=== PATIENT | female | born 1935 | race Caucasian/White ===

== ENCOUNTER 2023-10-01 11:37 | Observation (INO) ==
--- NOTE | 2023-10-01 12:01 | Emergency Department Note ---
Impression & Plan Syncope, vasovagal, Dizziness, Hematoma of scalp, Laceration of scalp, Fall ED Provider Note HISTORY OF PRESENT ILLNESS: Patient is an 87-year-old female presenting after syncopal episode. Patient presents from [facility] where she reportedly had a bowel movement and then was feeling lightheaded like she was going to pass out and tried to get herself off the toilet when she fell and struck her head. Staff found her on the ground. She then had an episode of vomiting. Patient is not on any anticoagulation. She reportedly "passes out quite frequently." Patient denies any complaints on arrival to the ER. Denies any chest pain or shortness of breath or lightheadedness prior to the fall. Reports "I just knew I was going to pass out." Denies any changes in vision currently. Denies any numbness or tingling or weakness in her extremities. ROS: as above PHYSICAL EXAM: Constitutional: Patient appears in no acute distress. HENT: Head: Normocephalic. 2 cm laceration to right posterior parietal scalp. The laceration has 2 linear components and an underlying hematoma that is actively bleeding from the center of the hematoma. Eyes: EOMI, PERRL Mouth/Throat: Mucous membranes moist. Neck: Trachea midline. Neck supple. Cardiovascular: RRR, No murmurs, rubs or gallops. Intact distal pulses. Pulmonary/Chest: No respiratory distress. Breath sounds clear and equal bilaterally. No wheezes or rales Abdominal: Abdomen soft, no tenderness, rebound or guarding. Back: No midline spinal tenderness, no paraspinal tenderness, no CVA tenderness. Musculoskeletal: No edema, tenderness or deformity noted. Skin: Warm and dry. No rash, erythema, pallor or cyanosis Psychiatric: Appropriate mood and affect for situation. Neurological: Alert and keenly responsive. CN II-XII grossly intact, moving all extremities equally and fully. MDM: - Vitals signs showed hypertension. - History obtained via patient. Patient presents with syncopal episode. Patient reports that she was having a bowel movement when she felt lightheaded like she was going to pass out and lowered herself to the the ground but fell and struck her head. She reports vomiting since the episode. Not on any anticoagulation. Denies any chest pain or shortness of breath. She reports that she knew she was going to pass out. Denies any changes in vision. - Chronic conditions affecting care: none - Differential diagnoses include, but are not limited to: UTI; intracranial hemorrhage; skull fracture; ACS; vasovagal syncope - Order placed for continuous cardiac monitoring. At this time, monitor showed rate of 64 bpm with normal sinus rhythm, per my interpretation. - External medical records reviewed. EMS run sheet was reviewed. Patient was vitally stable and route. She was given 4 mg of IV Zofran prehospital. - EKG interpreted by myself showed normal sinus rhythm. Rate bradycardic at 53 bpm. LBBB present. No acute ischemic changes. No previous EKG to compare to - Laboratory workup interpreted by myself showed leukocytosis (WBC 11.44) with left shift; stable electrolytes; normal creatinine; normal troponin; normal lipase - COVID/flu/RSV negative - CXR negative for pneumonia, per my interpretation - CT head wo contrast negative for acute intracranial pathology - Patient persistently vomiting on arrival. She was given 4 mg of IV Zofran on arrival. However, she continues to vomit. She was given 5 mg IV Compazine and 12.5 mg IV Benadryl. Given 1 g of IV acetaminophen for her reported "pain all over." - Patient's scalp laceration was repaired by myself with a few maryjane. Please see procedure note below. She did still have some oozing of blood from the hematoma so gauze soaked in TXA was placed on the wound and a compression wrap was wrapped around the patient's head. - Patient ambulated to the bathroom but when she returned she felt very dizzy and lightheaded and family does not feel comfortable with her going back to her [facility]. - Discussion was had with care analyst about patient's case and need for admission for observation - Hospitalist consulted for admission - [facility]. PROCEDURE: Laceration repair Location: right posterior parietal scalp Total length: 2 cm Complexity: simple Verbal consent was obtained after the risks and benefits were explained, including but not limited to bleeding, scarring, infection, pain, and bone/joint/nerve damage. At this time, the risks of the procedure are less than the risks of NOT performing the procedure. A time out was taken and the correct patient and site identified. Copious irrigation was performed using normal saline and hydrogen peroxide. The wound was explored for foreign bodies and none found. Examination revealed no injury to deep structures such as tendons, bone, or significant blood vessels. Debridement was not performed. The wound edges were approximated using 4 maryjane Hemostasis and excellent approximation was achieved. Antibacterial ointment and a sterile dressing applied. Detailed wound care instructions and signs and symptoms of infection reviewed with the patient and patient's daughter. No complications and the patient tolerated the procedure well. ASSESSMENT AND PLAN: Diagnosis: vasovagal syncope; fall; scalp laceration; scalp hematoma; dizziness Plan: admit Past Med/Surg History Social History Smoking Status: Never smoker Feels Safe at Home: Yes Allergies Allergies Allergy/AdvReac Type Severity Reaction Status Date / Time ciprofloxacin Allergy Unknown Unknown Unverified 10/01/23 13:59 clindamycin Allergy Unknown Unknown Unverified 10/01/23 13:59 fentanyl Allergy Unknown Unknown Unverified 10/01/23 13:59 sulfamethoxazole Allergy Unknown Unknown Unverified 10/01/23 13:59 [From ] trimethoprim [From ] Allergy Unknown Unknown Unverified 10/01/23 13:59 Home Meds Home Medications Medication Instructions Recorded Confirmed acetaminophen 500 mg tablet 1,000 mg PO BID 10/01/23 10/01/23 amlodipine 2.5 mg tablet 2.5 mg PO DAILY 10/01/23 10/01/23 aspirin 81 mg tablet 81 mg PO DAILY 10/01/23 10/01/23 carvedilol 12.5 mg tablet 12.5 mg PO BID 10/01/23 10/01/23 clopidogrel 75 mg tablet (Plavix) 75 mg PO DAILY 10/01/23 10/01/23 esomeprazole magnesium 40 mg 40 mg PO DAILY 10/01/23 10/01/23 capsule,delayed release (Nexium) levothyroxine 50 mcg tablet 50 mcg PO DAILY 10/01/23 10/01/23 polyethylene glycol 3350 17 gram 17 g PO DAILY PRN Constipation 10/01/23 10/01/23 oral powder packet (ClearLax) sennosides 8.6 mg-docusate sodium 1 tab-cap PO DAILY 10/01/23 10/01/23 50 mg tablet (Senna-S) sertraline 25 mg tablet 0 mg PO DAILY 10/01/23 10/01/23 sertraline 50 mg tablet 0 mg PO DAILY 10/01/23 10/01/23 simvastatin 40 mg tablet 40 mg PO HS 10/01/23 10/01/23 tramadol 50 mg tablet 50 mg PO Q12H PRN Pain 10/01/23 10/01/23 Results & Data (ED) Vital Signs Vital Signs - 24 hr 10/01/23 12:04 10/01/23 12:15 10/01/23 12:15 Pulse Rate 71 65 65 Pulse Rate [Apical] Respiratory Rate 18 18 Respiratory Effort / Characteristics Non-Labored Spontaneous Respiratory Depth Normal Respiratory Pattern Regular Blood Pressure 202/82 Blood Pressure [Right Arm] Blood Pressure Mean 122 Blood Pressure Mean [Right Arm] Blood Pressure Position Lying Blood Pressure Position [Right Arm] Pulse Oximetry 100 100 Oxygen Delivery Method Room Air Room Air Sepsis Recent Fever Within 48 Hours No Sepsis New/Unexplained Change in Mental Status N/A Sepsis Action Taken by Nursing No Action Required 10/01/23 12:15 10/01/23 13:52 10/01/23 15:31 Pulse Rate Pulse Rate [Apical] 65 62 63 Respiratory Rate 18 18 18 Respiratory Effort / Characteristics Non-Labored Spontaneous Non-Labored Spontaneous Respiratory Depth Normal Normal Respiratory Pattern Regular Regular Blood Pressure Blood Pressure [Right Arm] 202/82 190/83 181/60 H Blood Pressure Mean Blood Pressure Mean [Right Arm] 122 118 100 Blood Pressure Position Blood Pressure Position [Right Arm] Lying Lying Pulse Oximetry 100 100 98 Oxygen Delivery Method Room Air Room Air Room Air Sepsis Recent Fever Within 48 Hours Sepsis New/Unexplained Change in Mental Status Sepsis Action Taken by Nursing 10/01/23 16:05 Pulse Rate 64 Pulse Rate [Apical] Respiratory Rate Respiratory Effort / Characteristics Respiratory Depth Respiratory Pattern Blood Pressure Blood Pressure [Right Arm] Blood Pressure Mean Blood Pressure Mean [Right Arm] Blood Pressure Position Blood Pressure Position [Right Arm] Pulse Oximetry Oxygen Delivery Method Sepsis Recent Fever Within 48 Hours Sepsis New/Unexplained Change in Mental Status Sepsis Action Taken by Nursing Laboratory Data 10/01/23 11:58 10/01/23 11:58 Lab Results 10/01/23 10/01/23 10/01/23 Range/Units 11:58 12:03 14:09 WBC 11.44 H (4.8-10.8) K/ul RBC 3.90 L (4.20-6.10) M/uL Hgb 10.6 L (12.0-18.0) g/dl POC Hgb 11.2 L (12.0-18.0) g/dl Hct 32.6 L (37.0-52.0) % POC Hct 33 L (37-52) % MCV 83.6 (80.0-100.0) fL MCH 27.2 (25.0-34.0) pg MCHC 32.5 (32.0-36.0) g/dL RDW Std Deviation 43.2 (36.4-46.3) fL RDW Coeff of Ally 14.2 (11.5-14.5) % Plt Count 179 (130-400) K/uL MPV 9.8 (9.4-12.4) fL Immature Gran % (Auto) 0.7 % Neut % (Auto) 75.2 % Lymph % (Auto) 11.6 % [place] % (Auto) 5.7 % Eos % (Auto) 6.4 % Baso % (Auto) 0.4 % Neut # (Auto) 8.60 H (1.40-6.50) K/uL Lymph # (Auto) 1.33 (1.20-3.40) K/uL [place] # (Auto) 0.65 H (0.11-0.59) K/uL Eos # (Auto) 0.73 H (0.00-0.50) K/uL Baso # (Auto) 0.05 (0.00-0.20) K/uL Immature Gran # (Auto) 0.08 (0.01-0.20) K/uL PT 12.0 (9.0-12.0) Seconds INR 1.1 (0.9-1.1) POC Sodium 138 (135-144) mmol/L Sodium 136 (136-145) mmol/L POC Potassium 4.5 (3.3-5.0) mmol/L Potassium 4.6 (3.5-5.1) mmol/L POC Chloride 103 (101-112) mmol/L Chloride 103 (98-107) mmol/L Carbon Dioxide 24 (21-32) mmol/L POC Total CO2 22 L (24-31) mmol/L Anion Gap 9 (3-11) POC Anion Gap 18.0 (16-25) mmol/L POC BUN 25 H (7-18) mg/dl BUN 26 H (6-23) mg/dl Creatinine 1.12 (0.6-1.4) mg/dl POC Creatinine 1.2 (0.6-1.3) mg/dl Est Cr Clr Drug Dosing Not Reportable Est GFR ( Amer) 68.1 ml/min Est GFR (Non-Af Amer) 58.7 ml/min BUN/Creatinine Ratio 23.2 H (10-20) Glucose 114 H (70-99(Fasting)) mg/dl POC Glucose (other) 113 H (70-99) mg/dl Calcium 9.5 (8.6-10.3) mg/dl POC Ioniz Calcium Dwayne 1.18 (1.12-1.32) mmol/l Magnesium 2.0 (1.7-2.4) mg/dl Total Bilirubin 0.6 (0.2-1.0) mg/dl AST 18 (13-39) U/L ALT 9 (7-52) U/L Alkaline Phosphatase 62 (34-104) U/L Troponin I High Sens 8.1 (0-20) pg/ml Total Protein 7.3 (6.0-8.3) gm/dl Albumin 4.2 (3.4-5.0) gm/dl Globulin 3.1 (2.5-4.0) gm/dl Albumin/Globulin Ratio 1.4 (0.9-2) Lipase 18 (11-82) U/L SARS-CoV-2 (PCR) NEGATIVE (Negative) Influenza Type A (PCR) Negative (Neg) Influenza Type B (PCR) Negative (Neg) RSV (RT-PCR) Negative (Neg) Administered Medications Discontinued Medications Diphenhydramine HCl (Diphenhydramine 50 Mg/Ml Vial) 12.5 mg IV ONE ONE Stop: 10/01/23 14:01 Last Admin: 10/01/23 13:58 Dose: 12.5 mg Documented By: MONIKA Prochlorperazine (Compazine) 1 mls @ 1 mls/min IV ONE ONE Stop: 10/01/23 13:36 Last Admin: 10/01/23 14:10 Dose: 1 mls/min Documented By: MONIKA Acetaminophen (Ofirmev) 1,000 mg in 100 mls @ 400 mls/hr IV NOW STA Stop: 10/01/23 14:32 Last Infusion: 10/01/23 16:23 Dose: Infused Documented By: Admin: 10/01/23 14:54 Dose: 400 mls/hr Documented By: MONIKA Lidocaine/Epinephrine (Lidocaine 1%/Epinephrine 1:100,000 20 Ml Vial) Confirm Administered Dose 1 ml .ROUTE .[facility] ONE Stop: 10/01/23 15:51 Last Admin: 10/01/23 16:00 Dose: Not Given Documented By: MARY Ondansetron HCl (Ondansetron Inj 2 Mg/Ml 2 Ml Vial) Confirm Administered Dose 4 mg .ROUTE .[facility] ONE Stop: 10/01/23 12:05 Last Admin: 10/01/23 12:47 Dose: 4 mg Documented By: CC Ondansetron HCl (Ondansetron Inj 2 Mg/Ml 2 Ml Vial) 4 mg IV NOW STA Stop: 10/01/23 12:06 Last Admin: 10/01/23 12:47 Dose: Not Given Documented By: CC Silver Nitrate/Potassium Nitrate (Silver Nitr/Potassium Nitrate Applicator) Confirm Administered Dose 1 appl .ROUTE .[facility] ONE Stop: 10/01/23 15:46 Last Admin: 10/01/23 16:00 Dose: 1 appl Documented By: MARY Silver Nitrate/Potassium Nitrate (Silver Nitr/Potassium Nitrate Applicator) Confirm Administered Dose 3 appl .ROUTE .[facility] ONE Stop: 10/01/23 15:47 Last Admin: 10/01/23 15:57 Dose: 3 appl Documented By: MARY Tranexamic Acid (Txa 10% Non-Iv Routes 100 Mg/Ml Vial) Confirm Administered Dose 1,000 mg .ROUTE .[facility] ONE Stop: 10/01/23 15:48 Last Admin: 10/01/23 15:57 Dose: 1,000 mg Documented By: MARY Imaging Data Radiologist's Impression: Chest X-Ray 10/01/23 11:59 SINGLE VIEW CHEST CLINICAL HISTORY: Syncope. FINDINGS: An AP, portable, supine chest radiograph is obtained. No prior studies are available for comparison at the time of dictation. The heart is enlarged noting atherosclerotic calcification of the thoracic aorta. The pulmonary vasculature is noncongested. Nonspecific interstitial thickening is likely chronic. There is bibasilar scarring/atelectasis. No airspace consolidation or large pleural effusion is identified. No pneumothorax is seen. The skeletal structures are osteopenic. The bony thorax is grossly intact. IMPRESSION: Cardiomegaly with no acute cardiopulmonary abnormality identified. ACT 112: Negative or not required by law. Electronically signed by: Chad Dong M.D. 10/01/2023 12:[address] 10/01/23 11:59 CT SCAN OF THE BRAIN WITHOUT IV CONTRAST CLINICAL HISTORY: Syncope. Head injury. COMPARISON STUDY: No priors. TECHNIQUE: Unenhanced axial CT scan of the brain is performed from the vertex to the skull base. A dose lowering technique was utilized adhering to the principles of ALARA. The examination is degraded by motion artifact. CT DOSE: 625.8 mGy.cm FINDINGS: Brain parenchyma: There is age-related involutional change noting minimal microangiopathic disease. There is no hemorrhage, mass effect, or evidence of acute territorial ischemia by CT criteria. Elise-white matter differentiation is preserved. No extra-axial fluid collection is seen. Ventricles, sulci, cisterns: Prominent secondary to involutional change. Intracranial vasculature: There is atherosclerotic calcification of the cavernous carotid arteries. Calvarium: The skeletal structures are osteopenic. No depressed calvarial fracture is seen. Soft tissues: There is a large right parieto-occipital scalp hematoma. Sinuses and mastoids: There is trace mucosal thickening in the left maxillary antrum. The remaining paranasal sinuses are clear. The mastoid air cells are well pneumatized. Orbits: The bony orbits are grossly intact. There are bilateral ocular lens implants. IMPRESSION: 1 There is no hemorrhage, mass effect, or evidence of acute territorial ischemia by CT criteria. 2. Right parieto-occipital scalp hematoma. ACT 112: Negative or not required by law. Electronically signed by: Chad Dong M.D. 10/01/2023 12:21 PM Discharge Plan Visit Data Chief Complaint: Fall Stated Complaint: SYNCOPE, FALL ED Provider: Gin Hodgson Discharge Problem: Syncope, vasovagal, Dizziness, Hematoma of scalp, Laceration of scalp, Fall Forms Stand Alone Forms: [employer] Prescriptions Prescriptions: No Action carvedilol 12.5 mg Tablet 12.5 mg PO BID Rx Instructions: must administer with a meal/food polyethylene glycol 3350 [ClearLax] 17 gram Powder In Packet 17 g PO DAILY PRN (Reason: Constipation) sennosides-docusate sodium [Senna-S] 8.6-50 mg Tablet 1 tab-cap PO DAILY amlodipine 2.5 mg Tablet 2.5 mg PO DAILY clopidogrel [Plavix] 75 mg Tablet 75 mg PO DAILY tramadol 50 mg Tablet 50 mg PO Q12H PRN (Reason: Pain) acetaminophen [Tylenol Ex Str Rapid Release] 500 mg Tablet 1,000 mg PO BID simvastatin 40 mg Tablet 40 mg PO HS levothyroxine 50 mcg Tablet 50 mcg PO DAILY esomeprazole magnesium [Nexium] 40 mg Capsule,Delayed Release(Dr/Ec) 40 mg PO DAILY sertraline 25 mg Tablet 0 mg PO DAILY Rx Instructions: Take 25mg w/ 50mg to equal 75mg once daily aspirin 81 mg Tablet 81 mg PO DAILY sertraline 50 mg Tablet 0 mg PO DAILY Rx Instructions: Take 25mg w/ 50mg to equal 75mg once daily Referrals Referrals: Gema Hurd [Primary Care Provider] -
[2023-10-01] MEDS ORDERED: ONDANSETRON INJ 2 MG/ML 2 ML VIAL ONE (12:04)
[2023-10-01] MEDS ORDERED: ONDANSETRON INJ 2 MG/ML 2 ML VIAL IV STA (12:05)
[2023-10-01 12:16] LABS: iSTAT Creatinine 1.2 mg/dl (0.6-1.3); iSTAT Hemoglobin 11.2 g/dl (12.0-18.0); iSTAT Ionized Calcium 1.18 mmol/l (1.12-1.32); iSTAT Potassium 4.5 mmol/L (3.3-5.0)
[2023-10-01 12:19] LABS: Basophils # (auto) 0.05 K/uL (0.00-0.20); Basophils % (auto) 0.4 %; Eosinophils # (auto) 0.73 K/uL (0.00-0.50); Eosinophils % (auto) 6.4 %; Hematocrit (blood only) 32.6 % (37.0-52.0); Hemoglobin 10.6 g/dl (12.0-18.0); Immature Granulocytes # (auto) 0.08 K/uL (0.01-0.20); Immature Granulocytes % (auto) 0.7 %; Lymphocytes # (auto) 1.33 K/uL (1.20-3.40); Lymphocytes % (auto) 11.6 %; Mean Corpuscular Hemoglobin 27.2 pg (25.0-34.0); Mean Corpuscular Hgb Conc 32.5 g/dL (32.0-36.0); Mean Corpuscular Volume 83.6 fL (80.0-100.0); Mean Platelet Volume 9.8 fL (9.4-12.4); Monocytes # (auto) 0.65 K/uL (0.11-0.59); Monocytes % (auto) 5.7 %; Neutrophils % (auto) 75.2 %; Platelet Count 179 K/uL (130-400); RDW Coefficient of Variation 14.2 % (11.5-14.5); RDW Standard Deviation 43.2 fL (36.4-46.3); White Blood Count 11.44 K/ul (4.8-10.8)
--- NOTE | 2023-10-01 12:24 | CT Scan Report ---
CT SCAN OF THE BRAIN WITHOUT IV CONTRAST CLINICAL HISTORY: Syncope. Head injury. COMPARISON STUDY: No priors. TECHNIQUE: Unenhanced axial CT scan of the brain is performed from the vertex to the skull base. A do se lowering technique was utilized adhering to the principles of ALARA. The examination is degraded b y motion artifact. CT DOSE: 625.8 mGy.cm FINDINGS: Brain parenchyma: There is age-related involutional change noting minimal microangiopathic disease. T here is no hemorrhage, mass effect, or evidence of acute territorial ischemia by CT criteria. Elise-wh ite matter differentiation is preserved. No extra-axial fluid collection is seen. Ventricles, sulci, cisterns: Prominent secondary to involutional change. Intracranial vasculature: There is atherosclerotic calcification of the cavernous carotid arteries. Calvarium: The skeletal structures are osteopenic. No depressed calvarial fracture is seen. Soft tissues: There is a large right parieto-occipital scalp hematoma. Sinuses and mastoids: There is trace mucosal thickening in the left maxillary antrum. The remaining p aranasal sinuses are clear. The mastoid air cells are well pneumatized. Orbits: The bony orbits are grossly intact. There are bilateral ocular lens implants. IMPRESSION: 1 There is no hemorrhage, mass effect, or evidence of acute territorial ischemia by CT criteria. 2. Right parieto-occipital scalp hematoma. ACT 112: Negative or not required by law. Electronically signed by: Chad Dong M.D. 10/01/2023 12:21 PM
[2023-10-01 12:33] LABS: Alanine Aminotransferase 9 U/L (7-52); Albumin Globulin Ratio 1.4 (0.9-2); Albumin Level 4.2 gm/dl (3.4-5.0); Alkaline Phosphatase 62 U/L (34-104); Anion Gap 9 (3-11); Aspartate Aminotransferase 18 U/L (13-39); BUN Creatinine Ratio 23.2 (10-20); Bilirubin,Total 0.6 mg/dl (0.2-1.0); Blood Urea Nitrogen 26 mg/dl (6-23); Calcium 9.5 mg/dl (8.6-10.3); Carbon Dioxide 24 mmol/L (21-32); Chloride 103 mmol/L (98-107); Est GFR (African American) 68.1 ml/min; Est GFR (Non-African American) 58.7 ml/min; Globulin 3.1 gm/dl (2.5-4.0); Glucose 114 mg/dl (70-99(Fasting)); Lipase 18 U/L (11-82); Potassium 4.6 mmol/L (3.5-5.1); Sodium 136 mmol/L (136-145); Total Protein 7.3 gm/dl (6.0-8.3)
[2023-10-01 12:39] LABS: Troponin I High Sensitivity 8.1 pg/ml (0-20)
--- NOTE | 2023-10-01 12:41 | XRay Report ---
SINGLE VIEW CHEST CLINICAL HISTORY: Syncope. FINDINGS: An AP, portable, supine chest radiograph is obtained. No prior studies are available for co mparison at the time of dictation. The heart is enlarged noting atherosclerotic calcification of the thoracic aorta. The pulmonary vasculature is noncongested. Nonspecific interstitial thickening is lik rk chronic. There is bibasilar scarring/atelectasis. No airspace consolidation or large pleural effu yared is identified. No pneumothorax is seen. The skeletal structures are osteopenic. The bony thorax is grossly intact. IMPRESSION: Cardiomegaly with no acute cardiopulmonary abnormality identified. ACT 112: Negative or not required by law. Electronically signed by: Chad Dong M.D. 10/01/2023 12:40 PM
[2023-10-01 12:47] LABS: INR 1.1 (0.9-1.1)
[2023-10-01] MEDS ORDERED: PROCHLORPERAZINE 1 ML IV ONE (13:35)
[2023-10-01] MEDS ORDERED: diphenhydrAMINE 50 MG/ML VIAL IV ONE (14:00)
[2023-10-01] MEDS ORDERED: ACETAMINOPHEN 1,000 MG/100 ML VIAL IV STA (14:18)
[2023-10-01 15:20] LABS: Influenza A virus by PCR Negative (Neg); Influenza B virus by PCR Negative (Neg); RSV by PCR Negative (Neg); SARS CoV2 RNA(COVID-19) Ceph NEGATIVE (Negative)
[2023-10-01] MEDS ORDERED: SILVER NITR/POTASSIUM NITRATE APPLICATOR ONE ×2 (15:45→15:46)
[2023-10-01] MEDS ORDERED: TXA 10% Non-IV Routes 100 MG/ML VIAL ONE (15:47)
[2023-10-01] MEDS ORDERED: LIDOCAINE 1%/EPINEPHRINE 1:100,000 20 ML VIAL ONE (15:50)
--- NOTE | 2023-10-01 16:28 | Electrocardiogram Report ---
Test Reason : Blood Pressure : / mmHG Vent. Rate : 053 BPM Atrial Rate : 053 BPM P-R Int : 226 ms QRS Dur : 122 ms QT Int : 484 ms P-R-T Axes : 070 -56 091 degrees QTc Int : 454 ms Sinus bradycardia with 1st degree A-V block with Premature atrial complexes Left axis deviation Left bundle branch block Abnormal ECG No previous ECGs available Confirmed by Simone Coughlin ([id number]) on 10/01/2023 4:28:36 PM Referred By: Confirmed By:Simone Coughlin
[2023-10-01 17:54] LABS: Appearance Urine Cloudy (Clear); Bacteria Urine Automated Negative (Negative); Bilirubin Urine Negative (Negative); Blood Urine Negative (Negative); Color Urine Yellow; Glucose Urine UA Negative (Negative); Ketones Urine Negative (Negative); Leukocyte Esterase Urine 2+ (Negative); Nitrite Urine Positive (Negative); RBC Urine Automated 0-4 /hpf (0-4); Specific Gravity Urine 1.014 (1.000-1.030); Urobilinogen Urine Negative (Negative); WBC Urine Automated >30 /hpf (0-5); pH Urine 7.5 (4.5-7.5)
--- NOTE | 2023-10-01 17:54 | History & Physical Report ---
Date of Service October 01, 2023 Assessment & Plan (1) Syncope: Plan: -Admit to med/tele -Currently hypertensive with systolics in the 190's but otherwise stable -Presented to the ED ED via EMS after experiencing a syncopal episode with collapse while having a bowel movement -Patient's syncopal episode is consistent with a vasovagal episode -CT of the head and chest xray were negative for acute findings other than her scalp hematoma -Did sustain a right posterior scalp laceration which was repaired in the ED -No other focal neuro symptoms or defects on exam -Currently on 2.5 mg amlodipine and 12.5 mg Carvedilol at home -Will give 1L Plasmalyte on admission as she appears dehydrated on exam -Will obtain TTE and orthostatic vitals tomorrow to see if antihypertensives need to be adjusted -Fall precautions, aspiration precautions -Will continue aspirin and plavix for DVT PPX -NPO until CT of the abd/pelvis has resulted -AM CBC, BMP, mag (2) Dizziness: Plan: -Experiencing lightheadedness and dizziness with standing since arrival -Denies sensation that the room is spinning -Likely due to orthostatic hypotension -Rest of care per syncope plan (3) Abdominal pain: Plan: -Patient has been experiencing generalized abdominal pain since arrival -Also presented with multiple episodes of nausea and vomiting -While her abdomen was soft on exam she also has hypoactive bowel sounds -Will obtain CT of the abd/pelvis with IV con for further evaluation -Will keep NPO until CT results are back -PRN tylenol for pain (4) Laceration of scalp: Plan: -Sustained a posterior right laceration of the scalp with her fall today -Continue to monitor for signs of bleeding (5) UTI (urinary tract infection): Plan: -Patient's UA is consistent with UTI -This could be contributing to her dizziness and abdominal pain -No previous hx of resistant organisms in our system -Will start ceftriaxone for now -Monitor urine cultures and tailor abx to results (6) HTN (hypertension): Plan: -Patient has been hypertensive with systolics in the 190's-low 200's since arrival -Was nauseated and vomiting on arrival and has been experiencing increased anxiety and abdominal pain as well -Did have her am dose of amlodipine and carvedilol -Will wait and let her rest prior to treating her HTN to avoid further episodes of syncope as her HTN is likely being driven by discomfort and anxiety -Will continue home amlodipine and carvedilol for now until orthostatic vitals are obtained tomorrow (7) Peripheral vascular disease: Plan: -Continue aspirin and plavix (8) Hypothyroidism: Plan: -Continue levothyroxine Plan The patient was discussed with Dr. Zuniga at the time of the exam History of Present Illness Chief Complaint: Syncopal episode Primary Care Provider: Gema Rowell is an 87 year old female resident of the assisted living section of [facility] with a PMH significant for cognitive decline, HTN, hyperlipidemia, hypothyroidism, peripheral vascular disease, recurrent syncope, and recurrent UTI's who initially presented to the [facility] ED via EMS after experiencing a syncopal episode while trying to have a bowel movement this am. She was noted to be nauseated and vomiting on arrival to the ED. She was hypertensive at 202/82 on arrival but otherwise stable. Labs were significant for a WBC of 11 with neutrophil predominance of 8.6, covid 19/Influenza/RSV negative, with UA in process. CT of the head was read as "1 There is no hemorrhage, mass effect, or evidence of acute territorial ischemia by CT criteria. 2. Right parieto-occipital scalp hematoma.". Chest xray was read as "Cardiomegaly with no acute cardiopulmonary abnormality identified.". ECG shows sinus bradycardia with first degree AV block and LBBB with no previous ECG to compare to. The patient's scalp laceration was repaired and she was given 1gm IV tylenol, 12.5 mg IV benadryl, 4 mg IV zofran, and a dose of Compazine but stated that she was too dizzy and weak after walking to the ED bathroom to safely return home. At the time of the exam the patient was sitting in bed in no acute distress with her Ispmfldb-uz-xio sitting bedside, history was obtained from both. The patient woke in her normal state of health and felt well. She ate breakfast without issue and went back to her room. She went to the bathroom as she needed to have a BM. While on the toilet, having a BM, she had an acute episode of lightheadedness and passed out. She woke on the ground and saw blood, she also had a headache. She denies other symptoms such as paresthesias, chest pain, palpitations, SOB prior to the incident. She did take her am medications shortly after breakfast. Currently her only complaints are a headache and generalized abdominal pain. she did have a formed bowel movement this am and denies recent diarrhea. She and her daughter explain that since she was 6 yrs old she will have syncopal episodes, especially with pain or discomfort. The patient states "no doctor has ever worked it up before". Her daughter states that the patient gets recurrent UTI's and often has syncopal events when they occur. The patient states she had another episode of lightheadedness/dizziness while trying to stand up off the bedside commode approximately an hour ago but did not lose consciousness. She has a living will, and power of police cadet. She and her daughter confirm that she is a DNR/DNI. Please refer to Dr. Zuniga's attestation for any changes to the treatment plan Allergies Allergy/AdvReac Type Severity Reaction Status Date / Time ciprofloxacin Allergy Unknown Unknown Unverified 10/01/23 13:59 clindamycin Allergy Unknown Unknown Unverified 10/01/23 13:59 fentanyl Allergy Unknown Unknown Unverified 10/01/23 13:59 sulfamethoxazole Allergy Unknown Unknown Unverified 10/01/23 13:59 [From Mayra] trimethoprim [From Mayra] Allergy Unknown Unknown Unverified 10/01/23 13:59 Home Medications Medication Instructions Recorded Confirmed Type acetaminophen 500 mg tablet 1,000 mg PO BID 10/01/23 10/01/23 History aspirin 81 mg tablet 81 mg PO DAILY 10/01/23 10/01/23 History clopidogrel 75 mg tablet (Plavix) 75 mg PO DAILY 10/01/23 10/01/23 History esomeprazole magnesium 40 mg 40 mg PO DAILY 10/01/23 10/01/23 History capsule,delayed release (Nexium) levothyroxine 50 mcg tablet 50 mcg PO DAILY 10/01/23 10/01/23 History polyethylene glycol 3350 17 gram 17 g PO DAILY PRN Constipation 10/01/23 10/01/23 History oral powder packet (ClearLax) sennosides 8.6 mg-docusate sodium 1 tab-cap PO DAILY 10/01/23 10/01/23 History 50 mg tablet (Senna-S) sertraline 25 mg tablet 0 mg PO DAILY 10/01/23 10/01/23 History sertraline 50 mg tablet 0 mg PO DAILY 10/01/23 10/01/23 History simvastatin 40 mg tablet 40 mg PO HS 10/01/23 10/01/23 History tramadol 50 mg tablet 50 mg PO Q12H PRN Pain 10/01/23 10/01/23 History amlodipine 2.5 mg tablet 2.5 mg PO PM #30 tabs 10/07/23 10/01/23 Rx carvedilol 12.5 mg tablet 12.5 mg PO DAILY #9 tabs 10/07/23 10/01/23 Rx lisinopril 2.5 mg tablet 2.5 mg PO PM #30 tabs 10/07/23 Rx Past Med/Surg History Social History Smoking Status: Former smoker Hx Alcohol Use: No Hx Substance Use: No Preferred Language: Namibian Communication Ability: Effective Director Of Math Required: No Beliefs That Will Affect Care: None Current Living Situation: Half-Way Feels Safe at Home: Yes Assistive Devices: Cane Physical Exam Physical Exam: Physical Exam: General: In no acute distress, stated age, noo-toxic appearing HEENT: Patient with posterior scalp laceration currently wrapped and without signs of active bleeding, no scleral icterus, pupils around round, symmetrical, and reactive to light, moist mucus membranes, trachea midline, no thyromegaly Chest/Pulm: No respiratory distress, symmetrical chest expansion, clear breath sounds throughout Cardiac: RRR, 3/6 systolic murmur noted Abdomen: Negative for ascites and bruising, hypoactive bowel sounds, soft, mildly tender to palpation throughout Musculoskeletal: No other acute trauma other than her scalp laceration Extremities: Radial, dorsalis pedis, and posterior tibial pulses are intact and symmetrical, 1+ edema noted in the BL LE's Skin: Scalp laceration as described above, no other acute damage noted Neuro: Alert and oriented to person, place, month, year, and president, no focal defects, CN II-XII tested and intact, no tremors noted Psych: No acute distress, calm and cooperative during the exam Results & Data Results & Data Vital Signs (Past 12 Hours) Vital Signs Pulse Pulse Resp BP BP Pulse Ox O2 Del Method 10/01/23 16:05 64 10/01/23 15:31 63 18 181/60 H 98 Room Air 10/01/23 13:52 62 18 190/83 100 Room Air 10/01/23 12:15 65 18 100 Room Air 10/01/23 12:15 65 18 100 Room Air 10/01/23 12:15 65 18 100 Room Air 10/01/23 12:04 71 Laboratory Results Abnormal lab results 10/01/23 10/01/23 10/01/23 Range/Units 11:58 12:03 17:28 WBC 11.44 H (4.8-10.8) K/ul RBC 3.90 L (4.20-6.10) M/uL Hgb 10.6 L (12.0-18.0) g/dl POC Hgb 11.2 L (12.0-18.0) g/dl Hct 32.6 L (37.0-52.0) % POC Hct 33 L (37-52) % Neut # (Auto) 8.60 H (1.40-6.50) K/uL [place] # (Auto) 0.65 H (0.11-0.59) K/uL Eos # (Auto) 0.73 H (0.00-0.50) K/uL POC Total CO2 22 L (24-31) mmol/L POC BUN 25 H (7-18) mg/dl BUN 26 H (6-23) mg/dl BUN/Creatinine Ratio 23.2 H (10-20) Glucose 114 H (70-99(Fasting)) mg/dl POC Glucose (other) 113 H (70-99) mg/dl Urine Appearance Cloudy A (Clear) Urine Protein Trace H (Negative) Urine Nitrite Positive A (Negative) Ur Leukocyte Esterase 2+ H (Negative) Urine WBC (Auto) >30 H (0-5) /hpf U Epithel Cells (Auto) 10-20 H (0-5) /lpf Diagnostic Findings Chest X-Ray 10/01/23 11:59 SINGLE VIEW CHEST CLINICAL HISTORY: Syncope. FINDINGS: An AP, portable, supine chest radiograph is obtained. No prior studies are available for comparison at the time of dictation. The heart is enlarged noting atherosclerotic calcification of the thoracic aorta. The pulmonary vasculature is noncongested. Nonspecific interstitial thickening is likely chronic. There is bibasilar scarring/atelectasis. No airspace consolidation or large pleural effusion is identified. No pneumothorax is seen. The skeletal structures are osteopenic. The bony thorax is grossly intact. IMPRESSION: Cardiomegaly with no acute cardiopulmonary abnormality identified. ACT 112: Negative or not required by law. Electronically signed by: Chad Dong M.D. 10/01/2023 12:[address] 10/01/23 11:59 CT SCAN OF THE BRAIN WITHOUT IV CONTRAST CLINICAL HISTORY: Syncope. Head injury. COMPARISON STUDY: No priors. TECHNIQUE: Unenhanced axial CT scan of the brain is performed from the vertex to the skull base. A dose lowering technique was utilized adhering to the principles of ALARA. The examination is degraded by motion artifact. CT DOSE: 625.8 mGy.cm FINDINGS: Brain parenchyma: There is age-related involutional change noting minimal microangiopathic disease. There is no hemorrhage, mass effect, or evidence of acute territorial ischemia by CT criteria. Elise-white matter differentiation is preserved. No extra-axial fluid collection is seen. Ventricles, sulci, cisterns: Prominent secondary to involutional change. Intracranial vasculature: There is atherosclerotic calcification of the cavernous carotid arteries. Calvarium: The skeletal structures are osteopenic. No depressed calvarial fracture is seen. Soft tissues: There is a large right parieto-occipital scalp hematoma. Sinuses and mastoids: There is trace mucosal thickening in the left maxillary antrum. The remaining paranasal sinuses are clear. The mastoid air cells are well pneumatized. Orbits: The bony orbits are grossly intact. There are bilateral ocular lens implants. IMPRESSION: 1 There is no hemorrhage, mass effect, or evidence of acute territorial ischemia by CT criteria. 2. Right parieto-occipital scalp hematoma. ACT 112: Negative or not required by law. Electronically signed by: Chad Dong M.D. 10/01/2023 12:21 PM ECG Additional Comments: Sinus bradycardia with 1st degree A-V block with Premature atrial complexes Left axis deviation Left bundle branch block Abnormal ECG No previous ECGs available Confirmed by Simone Coughlin ([id number]) on 10/01/2023 4:28:36 PM Code Status & VTE Plan Code Status DNR/DNI VTE Prophylaxis Plan VTE Prophylaxis will be ordered: Yes Supervising Physician Co-Signing Physician Notes I personally saw and examined the patient. I verified all plata points and agree with Otilio Dueñas PA-C with the following exceptions and/or additions: 87 year old female presents to the ER with a syncopal event while n the toilet having a bowel movement. Complete loss of consciousness. No one sided weakness, change in speech/vision/hearing. Multiple episodes of syncope and recurrent UTIs. [place] well prior to this. O/E HS RRR, ADAL LUSB, Chest CTAB, Abdo mild tenderness throughout, no CVA tenderness A/P Syncope - TTE, rehydrate with IV fluids, monitor orthostatics in AM Enteritis - Monitor for diarrhea. PG Care Time/CCT Total # of Minutes Spent Total Time Spent with Patient: Total time spent is greater than 50% in coordination of care (as documented) at patient's floor/unit and/or counseling patient: [place] [address] INT INP/OBS CARE 3/75MIN Patient Type New Medical Decision Making High Complexity Diagnoses Syncope R55 Dizziness R42 Abdominal pain R10.9 Laceration of scalp S01.01XA UTI (urinary tract infection) N39.0 HTN (hypertension) I10 Peripheral vascular disease I73.9 Hypothyroidism E03.9
[2023-10-01 18:00] LABS: Protein Urine Trace (Negative)
[2023-10-01] MEDS ORDERED: cefTRIAXone SODIUM 2,000 MG in DEXTROSE 5 % MINI-B 50 ML IV STA (18:27)
[2023-10-01] MEDS ORDERED: PLASMA-LYTE A 1,000 ML IV ONE (18:27)
[2023-10-01] MEDS ORDERED: ACETAMINOPHEN 325 MG TAB PO STA (18:28)
[2023-10-01] MEDS ORDERED: OPTIRAY 320 500ml IV ONE (19:14)
--- NOTE | 2023-10-01 19:45 | CT Scan Report ---
Exam(s): CT ABDOMEN + PELVIS With Contrast IV Amt: 82ml EXAM: CT Abdomen and Pelvis With Intravenous Contrast CLINICAL HISTORY: Reason for exam: nausea, vomiting, abd pain. TECHNIQUE: Axial computed tomography images of the abdomen and pelvis with intravenous contrast. CTDI is 20.17 mGy and DLP is 842.98 mGy-cm. Automated exposure control was utilized for the study. A dose lowering technique was utilized adhering to the principles of ALARA. CONTRAST: Patient received 82ml of IV contrast COMPARISON: None FINDINGS: Lung bases: Lower lung atelectasis. ABDOMEN: Liver: Unremarkable. No mass. Gallbladder and bile ducts: Prior cholecystectomy. Probable mild postcholecystectomy ductal ectasia. Pancreas: Unremarkable. No mass. No ductal dilation. Spleen: Unremarkable. No splenomegaly. Adrenals: Unremarkable. No mass. Kidneys and ureters: Small hypodensities in the kidneys are too small to definitively characterize. Mild fullness of the renal pelvises. No obstructing stone identified. Stomach and bowel: Fluid and gas-filled small bowel loops could represent enteritis in the appropriate clinical setting. Evaluation of the stomach is limited by underdistention. Postsurgical change of the distal sigmoid colon. Diverticulosis without evidence of diverticulitis. No small bowel obstruction. PELVIS: Appendix: Appendix is not definitely visualized on this exam. Bladder: Unremarkable. No mass. Reproductive: Calcified uterine fibroid. ABDOMEN and PELVIS: Intraperitoneal space: Unremarkable. No free air. No significant fluid collection. Bones/joints: Degenerative changes of the spine. Grade 1/2 anterolisthesis of L4 on L5. Grade 1 anterolisthesis of L5 on S1. No acute fracture. No dislocation. Soft tissues: Moderate fat-containing lower left ventral hernia. Small fat-containing umbilical hernia. Vasculature: Atherosclerotic changes of the vasculature. No aortic aneurysm or dissection. 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 Stent in the left common iliac artery. Lymph nodes: Unremarkable. No enlarged lymph nodes. IMPRESSION: 1. Fluid and gas-filled small bowel loops could represent enteritis in the appropriate clinical setting. 2. Moderate fat-containing lower left ventral hernia. Electronically signed by: Jose Elias Dooley M.D. 10/01/23 19:45 PM
[2023-10-01] MEDS ORDERED: hydrALAZINE HCL 20 MG/ML VIAL IV STA ×2 (21:29→21:33)
[2023-10-01] MEDS ORDERED: ACETAMINOPHEN 1,000 MG/100 ML VIAL IV SCH (21:45)
[2023-10-01] MEDS: carvediloL 12.5 MG TAB PO SCH (22:09)
[2023-10-01] MEDS: PANTOprazole 40 MG in SYRINGE 0 ML IV SCH (22:09)
[2023-10-01] MEDS: ONDANSETRON INJ 2 MG/ML 2 ML VIAL IV PRN (22:11)
[2023-10-01] MEDS: PLASMA-LYTE A 1,000 ML IV SCH (22:27)
[2023-10-02 06:42] LABS: Basophils # (auto) 0.03 K/uL (0.00-0.20); Basophils % (auto) 0.4 %; Eosinophils # (auto) 0.12 K/uL (0.00-0.50); Eosinophils % (auto) 1.8 %; Hematocrit (blood only) 25.3 % (37.0-47.0); Immature Granulocytes # (auto) 0.03 K/uL (0.01-0.20); Immature Granulocytes % (auto) 0.4 %; Lymphocytes # (auto) 1.25 K/uL (1.20-3.40); Lymphocytes % (auto) 18.5 %; Mean Corpuscular Hemoglobin 26.9 pg (25.0-34.0); Mean Corpuscular Hgb Conc 31.6 g/dL (32.0-36.0); Mean Corpuscular Volume 85.2 fL (80.0-100.0); Mean Platelet Volume 9.8 fL (9.4-12.4); Monocytes # (auto) 0.72 K/uL (0.11-0.59); Monocytes % (auto) 10.7 %; Neutrophils # (auto) 4.61 K/uL (1.40-6.50); Neutrophils % (auto) 68.2 %; Platelet Count 157 K/uL (130-400); RDW Coefficient of Variation 14.3 % (11.5-14.5); RDW Standard Deviation 43.9 fL (36.4-46.3); Red Blood Count 2.97 M/uL (4.20-5.40); White Blood Count 6.76 K/ul (4.8-10.8)
[2023-10-02 07:28] LABS: Calcium 8.2 mg/dl (8.6-10.3); Magnesium 1.9 mg/dl (1.7-2.4); Potassium 3.8 mmol/L (3.5-5.1)
[2023-10-02 07:34] LABS: BUN Creatinine Ratio 20.8 (10-20); Creatinine Clr Calc Pharmacy 31.3 ml/min
[2023-10-02] MEDS: carvediloL 12.5 MG TAB PO SCH ×2 (08:49→21:35)
[2023-10-02] MEDS: PLASMA-LYTE A 1,000 ML IV SCH (08:49)
[2023-10-02] MEDS: PANTOprazole 40 MG in SYRINGE 0 ML IV SCH (08:49)
[2023-10-02] MEDS ORDERED: ACETAMINOPHEN 1,000 MG/100 ML VIAL IV SCH (09:00)
--- NOTE | 2023-10-02 12:15 | XCELERA ---
[id number] \\[id number]
[2023-10-02] MEDS ORDERED: cefTRIAXone SODIUM 2,000 MG in DEXTROSE 5 % MINI-B 50 ML IV SCH (18:00)
--- NOTE | 2023-10-02 18:50 | Hospitalist Progress Note ---
Date of Service October 02, 2023 Assessment & Plan (1) Syncope: Plan: - Telemetry and echo overall reassuring story fits the best with vasovagal syncope given that happened on the [facility] review of her diet history, she might drink adequate amount of fluid, but it is also suspect whether or not she truly doesand dehydration may be playing a role. Compounding all of this, is obviously side effect of her antihypertensives. That said, it does not appear that further workup for her syncope is necessary as much as it would be encouraging/tracking hydration, and possibly if that alone does not seem to remedy her situation, then possibly reducing her antihypertensives and allowing for more permissive hypertension to build a bit of a buffer against syncopal events given that she sounds quite prone to fainting and vagal spells throughout her life. In regards to her cloudy urinegiven her lack of fever, lack of overt urinary signs or symptoms, and normal inflammatory markers/white count, (was 11, CRP less than 0.5), I am more suspicious she simply is asymptomatic bacteriuriagiven that without any real septic signs or symptoms that would be a little hard to put together a vasovagal event while having a bowel movement with a UTI, and I worry given the prevalence of asymptomatic bacteriuria that we could set a bad precedent that could lead her down the road to ESBL infections, C. difficile infections, etc. The daughter was hesitant about this, but agreed with an aggressive watchful waiting approachwill follow for any development of urinary symptoms, obviously will treat immediately if she has any/has a fever, will trend her white count and CRP. (2) Dizziness: Plan: - This spinning dizziness seems to be quite different from her lightheaded dizziness that preceded the fall, she can clearly express that. I suspect she has a concussion and some postconcussive symptoms. Continue to follow. Given her age and frailty, I did order a repeat CT to ensure no late findings consistent with a bleed. PT/OT eval and treat, likely will need to go to skilled after discharge for the time being (3) Abdominal pain: Plan: -Patient had been experiencing generalized abdominal pain since arrival no complaints of this today -Also presented with multiple episodes of nausea and vomiting CT was consistent with enteritisit is quite possible she had a viral gastroenteritis as part of her symptom complex as well (4) Laceration of scalp: Plan: -Sustained a posterior right laceration of the scalp with her fall approximated with maryjane, seems to be healing well. While I suspect most of her anemia is dillutional, the daughter does note that it was bleeding fairly heavily, and it is hard to definitively rule out any acute blood loss. Obviously continue to follow. (5) UTI (urinary tract infection): Plan: See above discussion under syncopegiven lack of symptoms or lack of infectious signs or symptoms, will hold further antibiotics, follow for any development of symptoms, follow white count and CRP. (6) HTN (hypertension): Plan: No overt need to treat her blood pressures in the current range, (and less follow-up CT surprises me with any findings of a late bleed), as above under syncope, may need to allow more permissive hypertension depending on her hydration status/ability to function/etc. (7) Peripheral vascular disease: Plan: -Continue aspirin and plavix for now, pending follow-up CT (8) Hypothyroidism: Plan: -Continue levothyroxine Plan pending follow-up CT scan, holding pharmacologic DVT prophylaxisassuming no signs of bleed, would initiate Lovenox tomorrow. As far as dispositionPT/OT eval and treat, as above noted I suspect she will need skilled for the time being. Admission and Anticipated Discharge Date Admission Date: October 01, 2023 Subjective Complains of headache and dizziness. Fairly limited HPI due to easy confusiondaughter notes this is not too far from her normal degree of forgetfulness. That said, she denies any dysuria. Her daughter notes that her urine was cloudy, and relates that she has had UTIs with prior episodes of syncope as well. Review of Systems Review of Systems: All systems reviewed & are unremarkable except as noted in HPI & below Physical Exam Physical Exam: Awake and alert, appears a little bit uncomfortable due to dizziness, but no respiratory distress and does not appear to be in a significant amount of pain distress. She has a fairly large scalp laceration that is approximated with maryjane and clot, it appears to have been oozing earlier, but appears to be stopping now, there is no opening or dehiscence at this time. She shows no f ocal neurodeficits or lateralizing signs, breathing unlabored no accessory muscle use with good effort. Skin without rashes pallor or icterus. Results & Data Results & Data Vital Signs (Past 12 Hours) Vital Signs Temp Pulse Pulse Resp BP Pulse Ox O2 Del Method 10/02/23 17:33 67 10/02/23 15:37 98.6 F 63 18 159/67 H 97 Room Air 10/02/23 12:01 97.9 F 63 16 160/65 H 97 Room Air 10/02/23 08:00 73 10/02/23 07:41 97.9 F 72 16 163/62 H 95 Room Air PG Care Time/CCT Total # of Minutes Spent Total Time Spent with Patient: Total time spent is greater than 50% in coordination of care (as documented) at patient's floor/unit and/or counseling patient: Coding Level of Care Code 89868 SUB INP/OBS CARE 3/50MIN Diagnoses Syncope R55 Dizziness R42 Abdominal pain R10.9 Laceration of scalp S01.01XA UTI (urinary tract infection) N39.0 HTN (hypertension) I10 Peripheral vascular disease I73.9 Hypothyroidism E03.9
[2023-10-02] MEDS: ONDANSETRON INJ 2 MG/ML 2 ML VIAL IV PRN (23:02)
--- NOTE | 2023-10-02 23:28 | CT Scan Report ---
CT SCAN OF THE BRAIN WITHOUT IV CONTRAST CLINICAL HISTORY: Concussion. Dizziness. COMPARISON STUDY: CT of the brain dated 10/01/2023. TECHNIQUE: Unenhanced axial CT scan of the brain is performed from the vertex to the skull base. A do se lowering technique was utilized adhering to the principles of ALARA. The examination is degraded b y motion artifact. CT DOSE: 625.8 mGy.cm FINDINGS: Brain parenchyma: There is age-related involutional change noting minimal microangiopathic disease. T here is no hemorrhage, mass effect, or evidence of acute territorial ischemia by CT criteria. Elise-wh ite matter differentiation is preserved. No extra-axial fluid collection is seen. Ventricles, sulci, cisterns: Prominent secondary to involutional change. Intracranial vasculature: There is atherosclerotic calcification of the cavernous carotid arteries. Calvarium: The skeletal structures are osteopenic. No depressed calvarial fracture is seen. Soft tissues: There is a right parieto-occipital scalp hematoma with skin clips in place. Sinuses and mastoids: There is trace mucosal thickening in the left maxillary antrum. The remaining v isualized paranasal sinuses are clear. The mastoid air cells are well pneumatized. Orbits: The bony orbits are grossly intact. There are bilateral ocular lens implants. IMPRESSION: 1 There is no hemorrhage, mass effect, or evidence of acute territorial ischemia by CT criteria. 2. A right parieto-occipital scalp hematoma is again noted. ACT 112: Negative or not required by law. Electronically signed by: Chad Dong M.D. 10/02/2023 11:26 PM
[2023-10-03 06:36] LABS: Basophils # (auto) 0.03 K/uL (0.00-0.20); Basophils % (auto) 0.5 %; Eosinophils # (auto) 0.17 K/uL (0.00-0.50); Hematocrit (blood only) 25.6 % (37.0-47.0); Immature Granulocytes # (auto) 0.03 K/uL (0.01-0.20); Immature Granulocytes % (auto) 0.5 %; Lymphocytes # (auto) 1.08 K/uL (1.20-3.40); Lymphocytes % (auto) 19.3 %; Mean Corpuscular Hemoglobin 26.4 pg (25.0-34.0); Mean Corpuscular Hgb Conc 31.3 g/dL (32.0-36.0); Mean Corpuscular Volume 84.5 fL (80.0-100.0); Mean Platelet Volume 9.7 fL (9.4-12.4); Monocytes # (auto) 0.61 K/uL (0.11-0.59); Monocytes % (auto) 10.9 %; Neutrophils # (auto) 3.67 K/uL (1.40-6.50); Neutrophils % (auto) 65.8 %; Platelet Count 146 K/uL (130-400); RDW Coefficient of Variation 14.1 % (11.5-14.5); RDW Standard Deviation 43.4 fL (36.4-46.3); Red Blood Count 3.03 M/uL (4.20-5.40); White Blood Count 5.59 K/ul (4.8-10.8)
[2023-10-03 06:53] LABS: Anion Gap 7 (3-11); BUN Creatinine Ratio 15.5 (10-20); Blood Urea Nitrogen 16 mg/dl (6-23); C Reactive Protein < 0.50 mg/dl (0-0.5); Calcium 8.3 mg/dl (8.6-10.3); Carbon Dioxide 25 mmol/L (21-32); Chloride 104 mmol/L (98-107); Creatinine Clr Calc Pharmacy 30.5 ml/min; Est GFR (African American) 56.6 ml/min; Est GFR (Non-African American) 48.8 ml/min; Glucose 100 mg/dl (70-99(Fasting)); Potassium 3.5 mmol/L (3.5-5.1); Sodium 136 mmol/L (136-145)
[2023-10-03] MEDS: PANTOprazole 40 MG in SYRINGE 0 ML IV SCH (08:40)
[2023-10-03] MEDS: carvediloL 12.5 MG TAB PO SCH ×2 (08:40→22:10)
--- NOTE | 2023-10-03 15:59 | Hospitalist Progress Note ---
Date of Service October 03, 2023 Assessment & Plan (1) Syncope: Plan: - Telemetry and echo overall reassuring story fits the best with vasovagal syncope given that happened on the [facility] review of her diet history, she might drink adequate amount of fluid, but it is also suspect whether or not she truly doesand dehydration may be playing a role. Compounding all of this, is obviously side effect of her antihypertensives. That said, it does not appear that further workup for her syncope is necessary as much as it would be encouraging/tracking hydration, and possibly if that alone does not seem to remedy her situation, then possibly reducing her antihypertensives and allowing for more permissive hypertension to build a bit of a buffer against syncopal events given that she sounds quite prone to fainting and vagal spells throughout her life. In regards to her cloudy urinegiven her lack of fever, lack of overt urinary signs or symptoms, and normal inflammatory markers/white count, (was 11, CRP less than 0.5), I am more suspicious she simply is asymptomatic bacteriuriagiven that without any real septic signs or symptoms that would be a little hard to put together a vasovagal event while having a bowel movement with a UTI, and I worry given the prevalence of asymptomatic bacteriuria that we could set a bad precedent that could lead her down the road to ESBL infections, C. difficile infections, etc. The daughter was hesitant about this, but agreed with an aggressive watchful waiting approachwill follow for any development of urinary symptoms, obviously will treat immediately if she has any/has a fever, will trend her white count and CRP. WIll recheck inflammatory markers on 10/04 (2) Dizziness: Plan: - This spinning dizziness seems to be quite different from her lightheaded dizziness that preceded the fall, she can clearly express that. I suspect she has a concussion and some postconcussive symptoms. Continue to follow. Given her age and frailty, I did order a repeat CT to ensure no late findings consistent with a bleed. PT/OT eval and treat, likely will need to go to skilled after discharge for the time being (3) Abdominal pain: Plan: -Patient had been experiencing generalized abdominal pain since arrival no complaints of this today -Also presented with multiple episodes of nausea and vomiting CT was consistent with enteritisit is quite possible she had a viral gastroenteritis as part of her symptom complex as well (4) Laceration of scalp: Plan: -Sustained a posterior right laceration of the scalp with her fall approximated with maryjane, seems to be healing well. While I suspect most of her anemia is dillutional, the daughter does note that it was bleeding fairly heavily, and it is hard to definitively rule out any acute blood loss. Obviously continue to follow. (5) UTI (urinary tract infection): Plan: See above discussion under syncopegiven lack of symptoms or lack of infectious signs or symptoms, will hold further antibiotics, follow for any development of symptoms, follow white count and CRP. (6) HTN (hypertension): Plan: No overt need to treat her blood pressures in the current range, (and less follow-up CT surprises me with any findings of a late bleed), as above under syncope, may need to allow more permissive hypertension depending on her hydration status/ability to function/etc. (7) Peripheral vascular disease: Plan: -Continue aspirin and plavix for now, pending follow-up CT (8) Hypothyroidism: Plan: -Continue levothyroxine Plan pending follow-up CT scan, holding pharmacologic DVT prophylaxisassuming no signs of bleed, would initiate Lovenox tomorrow. As far as dispositionPT/OT eval and treat, as above noted I suspect she will need skilled for the time being. Admission and Anticipated Discharge Date Admission Date: October 01, 2023 Subjective Patient appears less confused today. Review of Systems Review of Systems: All systems reviewed & are unremarkable except as noted in HPI & below Physical Exam Physical Exam: Awake and alert, She has a fairly large scalp laceration that is approximated with maryjane there is no opening or dehiscence at this time. She shows no focal neurodeficits or lateralizing signs, breathing unlabored no accessory muscle use with good effort. Skin without rashes pallor or icterus. Results & Data Results & Data Vital Signs (Past 12 Hours) Vital Signs Temp Pulse Pulse Resp BP BP Pulse Ox 10/03/23 15:39 36.5 C 70 18 209/43 H 198/66 H 99 10/03/23 11:58 36.6 C 62 16 184/67 H 97 10/03/23 08:01 36.6 C 16 189/63 H 96 10/03/23 07:00 75 O2 Del Method 10/03/23 15:39 Room Air 10/03/23 11:58 Room Air 10/03/23 08:01 Room Air 10/03/23 07:00 PG Care Time/CCT Total # of Minutes Spent Total Time Spent with Patient: Total time spent is greater than 50% in coordination of care (as documented) at patient's floor/unit and/or counseling patient: Coding Level of Care Code 15834 SUB INP/OBS CARE 2/35MIN Diagnoses Syncope R55 Dizziness R42 Abdominal pain R10.9 Laceration of scalp S01.01XA UTI (urinary tract infection) N39.0 HTN (hypertension) I10 Peripheral vascular disease I73.9 Hypothyroidism E03.9
[2023-10-03] MEDS ORDERED: amLODIPine BESYLATE 5 MG TAB PO ONE (16:00)
[2023-10-03] MEDS: lisinopril 2.5 MG TAB PO SCH (22:11)
[2023-10-04 07:01] LABS: Basophils # (auto) 0.06 K/uL (0.00-0.20); Eosinophils # (auto) 0.23 K/uL (0.00-0.50); Eosinophils % (auto) 3.8 %; Hematocrit (blood only) 26.5 % (37.0-47.0); Hemoglobin 8.6 g/dl (12.0-16.0); Immature Granulocytes # (auto) 0.04 K/uL (0.01-0.20); Immature Granulocytes % (auto) 0.7 %; Lymphocytes # (auto) 1.24 K/uL (1.20-3.40); Lymphocytes % (auto) 20.6 %; Mean Corpuscular Hgb Conc 32.5 g/dL (32.0-36.0); Mean Corpuscular Volume 83.3 fL (80.0-100.0); Mean Platelet Volume 9.6 fL (9.4-12.4); Monocytes # (auto) 0.74 K/uL (0.11-0.59); Monocytes % (auto) 12.3 %; Neutrophils # (auto) 3.71 K/uL (1.40-6.50); Neutrophils % (auto) 61.6 %; Platelet Count 152 K/uL (130-400); RDW Coefficient of Variation 14.2 % (11.5-14.5); RDW Standard Deviation 43.4 fL (36.4-46.3); Red Blood Count 3.18 M/uL (4.20-5.40); White Blood Count 6.02 K/ul (4.8-10.8)
[2023-10-04 07:17] LABS: Anion Gap 6 (3-11); BUN Creatinine Ratio 13.7 (10-20); Blood Urea Nitrogen 14 mg/dl (6-23); C Reactive Protein < 0.50 mg/dl (0-0.5); Calcium 8.6 mg/dl (8.6-10.3); Carbon Dioxide 27 mmol/L (21-32); Chloride 105 mmol/L (98-107); Creatinine Clr Calc Pharmacy 30.5 ml/min; Est GFR (African American) 57.3 ml/min; Est GFR (Non-African American) 49.4 ml/min; Glucose 101 mg/dl (70-99(Fasting)); Potassium 3.3 mmol/L (3.5-5.1); Sodium 138 mmol/L (136-145)
[2023-10-04] MEDS: carvediloL 12.5 MG TAB PO SCH ×2 (08:43→20:40)
[2023-10-04] MEDS: PANTOprazole 40 MG in SYRINGE 0 ML IV SCH (12:09)
[2023-10-04] MEDS: ENOXAPARIN INJ 40 MG/0.4 ML SYR SQ SCH (12:09)
[2023-10-04] MEDS: lisinopril 2.5 MG TAB PO SCH (20:40)
[2023-10-04] MEDS: amLODIPine BESYLATE 5 MG TAB PO SCH (21:07)
--- NOTE | 2023-10-04 22:05 | Hospitalist Progress Note ---
Date of Service October 04, 2023 Assessment & Plan (1) Syncope: Plan: - Telemetry and echo overall reassuring story fits the best with vasovagal syncope given that happened on the [facility] [address] review of her diet history, she might drink adequate amount of fluid, but it is also suspect whether or not she truly doesand dehydration may be playing a role. Compounding all of this, is obviously side effect of her antihypertensives. That said, it does not appear that further workup for her syncope is necessary as much as it would be encouraging/tracking hydration, and possibly if that alone does not seem to remedy her situation, then possibly reducing her antihypertensives and allowing for more permissive hypertension to build a bit of a buffer against syncopal events given that she sounds quite prone to fainting and vagal spells throughout her life. In regards to her cloudy urinegiven her lack of fever, lack of overt urinary signs or symptoms, and normal inflammatory markers/white count, (was 11, CRP less than 0.5), I am more suspicious she simply is asymptomatic bacteriuriagiven that without any real septic signs or symptoms that would be a little hard to put together a vasovagal event while having a bowel movement with a UTI, and I worry given the prevalence of asymptomatic bacteriuria that we could set a bad precedent that could lead her down the road to ESBL infections, C. difficile infections, etc. The daughter was hesitant about this, but agreed with an aggressive watchful waiting approachwill follow for any development of urinary symptoms, obviously will treat immediately if she has any/has a fever, will trend her white count and CRP. negative inflammatory markers on 10/04 (2) Dizziness: Plan: - This spinning dizziness seems to be quite different from her lightheaded dizziness that preceded the fall, she can clearly express that. I suspect she has a concussion and some postconcussive symptoms. Continue to follow. Given her age and frailty, I did order a repeat CT to ensure no late findings consistent with a bleed. PT/OT eval and treat, likely will need to go to skilled after discharge for the time being (3) Abdominal pain: Plan: -Patient had been experiencing generalized abdominal pain since arrival no complaints of this today -Also presented with multiple episodes of nausea and vomiting CT was consistent with enteritisit is quite possible she had a viral gastroenteritis as part of her symptom complex as well (4) Laceration of scalp: Plan: -Sustained a posterior right laceration of the scalp with her fall approximated with maryjane, seems to be healing well. While I suspect most of her anemia is dillutional, the daughter does note that it was bleeding fairly heavily, and it is hard to definitively rule out any acute blood loss. Obviously continue to follow. (5) UTI (urinary tract infection): Plan: See above discussion under syncopegiven lack of symptoms or lack of infectious signs or symptoms, will hold further antibiotics, follow for any development of symptoms, follow white count and CRP. (6) HTN (hypertension): Plan: No overt need to treat her blood pressures in the current range, (and less follow-up CT surprises me with any findings of a late bleed), as above under syncope, may need to allow more permissive hypertension depending on her hydration status/ability to function/etc. (7) Peripheral vascular disease: Plan: -Continue aspirin and plavix for now, pending follow-up CT (8) Hypothyroidism: Plan: -Continue levothyroxine Plan pending follow-up CT scan, holding pharmacologic DVT prophylaxisassuming no signs of bleed, would initiate Lovenox tomorrow. As far as dispositionPT/OT eval and treat, as above noted I suspect she will need skilled for the time being. Admission and Anticipated Discharge Date Admission Date: October 01, 2023 Subjective Patient reports no new symptoms Review of Systems Review of Systems: All systems reviewed & are unremarkable except as noted in HPI & below Physical Exam Physical Exam: Awake and alert, She has a fairly large scalp laceration that is approximated with maryjane there is no opening or dehiscence at this time. She shows no focal neurodeficits or lateralizing signs, breathing unlabored no accessory muscle use with good effort. Skin without rashes pallor or icterus. Results & Data Results & Data Vital Signs (Past 12 Hours) Vital Signs Temp Pulse Pulse Resp BP Pulse Ox O2 Del Method 10/04/23 19:00 36.7 C 69 20 168/60 H 97 Room Air 10/04/23 17:36 36.6 C 70 17 123/62 95 Room Air 10/04/23 14:55 66 10/04/23 12:22 36.6 C 65 17 151/70 H 98 Room Air PG Care Time/CCT Total # of Minutes Spent Total Time Spent with Patient: Total time spent is greater than 50% in coordination of care (as documented) at patient's floor/unit and/or counseling patient: Coding Level of Care Code 01396 SUB INP/OBS CARE 2/35MIN Diagnoses Syncope R55 Dizziness R42 Abdominal pain R10.9 Laceration of scalp S01.01XA UTI (urinary tract infection) N39.0 HTN (hypertension) I10 Peripheral vascular disease I73.9 Hypothyroidism E03.9
[2023-10-05] MEDS: ACETAMINOPHEN 325 MG TAB PO PRN ×2 (07:46→22:11)
[2023-10-05] MEDS: carvediloL 12.5 MG TAB PO SCH ×2 (07:46→22:05)
[2023-10-05] MEDS: ENOXAPARIN INJ 40 MG/0.4 ML SYR SQ SCH (07:47)
[2023-10-05] MEDS: PANTOprazole 40 MG in SYRINGE 0 ML IV SCH (11:34)
--- NOTE | 2023-10-05 21:35 | Hospitalist Progress Note ---
Date of Service October 05, 2023 Assessment & Plan (1) Syncope: Plan: - Telemetry and echo overall reassuring story fits the best with vasovagal syncope given that happened on the [facility] review of her diet history, she might drink adequate amount of fluid, but it is also suspect whether or not she truly doesand dehydration may be playing a role. Compounding all of this, is obviously side effect of her antihypertensives. That said, it does not appear that further workup for her syncope is necessary as much as it would be encouraging/tracking hydration, and possibly if that alone does not seem to remedy her situation, then possibly reducing her antihypertensives and allowing for more permissive hypertension to build a bit of a buffer against syncopal events given that she sounds quite prone to fainting and vagal spells throughout her life. In regards to her cloudy urinegiven her lack of fever, lack of overt urinary signs or symptoms, and normal inflammatory markers/white count, (was 11, CRP less than 0.5), I am more suspicious she simply is asymptomatic bacteriuriagiven that without any real septic signs or symptoms that would be a little hard to put together a vasovagal event while having a bowel movement with a UTI, and I worry given the prevalence of asymptomatic bacteriuria that we could set a bad precedent that could lead her down the road to ESBL infections, C. difficile infections, etc. The daughter was hesitant about this, but agreed with an aggressive watchful waiting approachwill follow for any development of urinary symptoms, obviously will treat immediately if she has any/has a fever, will trend her white count and CRP. negative inflammatory markers on 10/04 awaiting placement. (2) Dizziness: Plan: - This spinning dizziness seems to be quite different from her lightheaded dizziness that preceded the fall, she can clearly express that. I suspect she has a concussion and some postconcussive symptoms. Continue to follow. Given her age and frailty, I did order a repeat CT to ensure no late findings consistent with a bleed. PT/OT eval and treat, likely will need to go to skilled after discharge for the time being (3) Abdominal pain: Plan: -Patient had been experiencing generalized abdominal pain since arrival no complaints of this today -Also presented with multiple episodes of nausea and vomiting CT was consistent with enteritisit is quite possible she had a viral gastroenteritis as part of her symptom complex as well (4) Laceration of scalp: Plan: -Sustained a posterior right laceration of the scalp with her fall approximated with maryjane, seems to be healing well. While I suspect most of her anemia is dillutional, the daughter does note that it was bleeding fairly heavily, and it is hard to definitively rule out any acute blood loss. Obviously continue to follow. (5) UTI (urinary tract infection): Plan: See above discussion under syncopegiven lack of symptoms or lack of infectious signs or symptoms, will hold further antibiotics, follow for any development of symptoms, follow white count and CRP. (6) HTN (hypertension): Plan: No overt need to treat her blood pressures in the current range, (and less follow-up CT surprises me with any findings of a late bleed), as above under syncope, may need to allow more permissive hypertension depending on her hydration status/ability to function/etc. (7) Peripheral vascular disease: Plan: -Continue aspirin and plavix for now, pending follow-up CT (8) Hypothyroidism: Plan: -Continue levothyroxine Plan pending follow-up CT scan, holding pharmacologic DVT prophylaxisassuming no signs of bleed, would initiate Lovenox tomorrow. As far as dispositionPT/OT eval and treat, as above noted I suspect she will need skilled for the time being. Admission and Anticipated Discharge Date Admission Date: October 01, 2023 Subjective Patient reports no new symptoms. Review of Systems Review of Systems: All systems reviewed & are unremarkable except as noted in HPI & below Physical Exam Physical Exam: Awake and alert, She has a fairly large scalp laceration that is approximated with maryjane there is no opening or dehiscence at this time. She shows no focal neurodeficits or lateralizing signs, breathing unlabored no accessory muscle use with good effort. Skin without rashes pallor or icterus. Results & Data Results & Data Vital Signs (Past 12 Hours) Vital Signs Temp Pulse Pulse Resp BP BP Pulse Ox 10/05/23 19:00 36.3 C L 74 20 212/71 H 97 10/05/23 15:32 36.5 C 66 17 181/66 H 99 10/05/23 15:00 67 10/05/23 11:34 36.3 C L 59 L 18 174/67 H 98 O2 Del Method 10/05/23 19:00 Room Air 10/05/23 15:32 Room Air 10/05/23 15:00 10/05/23 11:34 Room Air PG Care Time/CCT Total # of Minutes Spent Total Time Spent with Patient: Total time spent is greater than 50% in coordination of care (as documented) at patient's floor/unit and/or counseling patient: Coding Level of Care Code 52842 SUB INP/OBS CARE 2/35MIN Diagnoses Syncope R55 Dizziness R42 Abdominal pain R10.9 Laceration of scalp S01.01XA UTI (urinary tract infection) N39.0 HTN (hypertension) I10 Peripheral vascular disease I73.9 Hypothyroidism E03.9
[2023-10-05] MEDS: amLODIPine BESYLATE 5 MG TAB PO SCH (22:05)
[2023-10-05] MEDS: lisinopril 2.5 MG TAB PO SCH (22:06)
[2023-10-06] MEDS: ENOXAPARIN INJ 40 MG/0.4 ML SYR SQ SCH (08:08)
[2023-10-06] MEDS: PANTOprazole 40 MG TAB PO SCH (08:08)
[2023-10-06] MEDS: carvediloL 12.5 MG TAB PO SCH ×2 (08:08→21:25)
--- NOTE | 2023-10-06 21:16 | Hospitalist Progress Note ---
Date of Service October 06, 2023 Assessment & Plan (1) Syncope: Plan: - Telemetry and echo overall reassuring story fits the best with vasovagal syncope given that happened on the [facility] review of her diet history, she might drink adequate amount of fluid, but it is also suspect whether or not she truly doesand dehydration may be playing a role. Compounding all of this, is obviously side effect of her antihypertensives. That said, it does not appear that further workup for her syncope is necessary as much as it would be encouraging/tracking hydration, and possibly if that alone does not seem to remedy her situation, then possibly reducing her antihypertensives and allowing for more permissive hypertension to build a bit of a buffer against syncopal events given that she sounds quite prone to fainting and vagal spells throughout her life. In regards to her cloudy urinegiven her lack of fever, lack of overt urinary signs or symptoms, and normal inflammatory markers/white count, (was 11, CRP less than 0.5), I am more suspicious she simply is asymptomatic bacteriuriagiven that without any real septic signs or symptoms that would be a little hard to put together a vasovagal event while having a bowel movement with a UTI, and I worry given the prevalence of asymptomatic bacteriuria that we could set a bad precedent that could lead her down the road to ESBL infections, C. difficile infections, etc. The daughter was hesitant about this, but agreed with an aggressive watchful waiting approachwill follow for any development of urinary symptoms, obviously will treat immediately if she has any/has a fever, will trend her white count and CRP. negative inflammatory markers on 10/04 reviewed previous labs on 10/06 Placed order on 10/07 awaiting placement. (2) Dizziness: Plan: - This spinning dizziness seems to be quite different from her lightheaded dizziness that preceded the fall, she can clearly express that. I suspect she has a concussion and some postconcussive symptoms. Continue to follow. Given her age and frailty, I did order a repeat CT to ensure no late findings consistent with a bleed. PT/OT eval and treat, likely will need to go to skilled after discharge for the time being (3) Abdominal pain: Plan: -Patient had been experiencing generalized abdominal pain since arrival no complaints of this today -Also presented with multiple episodes of nausea and vomiting CT was consistent with enteritisit is quite possible she had a viral gastroenteritis as part of her symptom complex as well (4) Laceration of scalp: Plan: -Sustained a posterior right laceration of the scalp with her fall approximated with maryjane, seems to be healing well. While I suspect most of her anemia is dillutional, the daughter does note that it was bleeding fairly heavily, and it is hard to definitively rule out any acute blood loss. Obviously continue to follow. (5) UTI (urinary tract infection): Plan: See above discussion under syncopegiven lack of symptoms or lack of infectious signs or symptoms, will hold further antibiotics, follow for any development of symptoms, follow white count and CRP. (6) HTN (hypertension): Plan: No overt need to treat her blood pressures in the current range, (and less follow-up CT surprises me with any findings of a late bleed), as above under syncope, may need to allow more permissive hypertension depending on her hydration status/ability to function/etc. (7) Peripheral vascular disease: Plan: -Continue aspirin and plavix for now, pending follow-up CT (8) Hypothyroidism: Plan: -Continue levothyroxine Plan pending follow-up CT scan, holding pharmacologic DVT prophylaxisassuming no signs of bleed, would initiate Lovenox tomorrow. As far as dispositionPT/OT eval and treat, as above noted I suspect she will need skilled for the time being. Admission and Anticipated Discharge Date Admission Date: October 01, 2023 Subjective 87 yo female reports no new symptoms. Review of Systems Review of Systems: All systems reviewed & are unremarkable except as noted in HPI & below Physical Exam Physical Exam: Awake and alert, She has a fairly large scalp laceration that is approximated with maryjane there is no opening or dehiscence at this time. She shows no focal neurodeficits or lateralizing signs, breathing unlabored no accessory muscle use with good effort. Skin without rashes pallor or icterus. Results & Data Results & Data Vital Signs (Past 12 Hours) Vital Signs Temp Pulse Pulse Resp BP Pulse Ox O2 Del Method 10/06/23 19:00 36.5 C 71 20 200/71 H 100 Room Air 10/06/23 16:00 76 10/06/23 14:56 37.1 C 64 16 122/65 97 Room Air 10/06/23 11:56 36.3 C L 66 16 144/70 H 98 Room Air PG Care Time/CCT Total # of Minutes Spent Total Time Spent with Patient: Total time spent is greater than 50% in coordination of care (as documented) at patient's floor/unit and/or counseling patient: Coding Level of Care Code 69627 SUB INP/OBS CARE 2/35MIN Diagnoses Syncope R55 Dizziness R42 Abdominal pain R10.9 Laceration of scalp S01.01XA UTI (urinary tract infection) N39.0 HTN (hypertension) I10 Peripheral vascular disease I73.9 Hypothyroidism E03.9
[2023-10-06] MEDS: amLODIPine BESYLATE 5 MG TAB PO SCH (21:23)
[2023-10-06] MEDS: lisinopril 2.5 MG TAB PO SCH (21:23)
[2023-10-07 07:26] LABS: Hematocrit (blood only) 26.4 % (37.0-47.0); Hemoglobin 8.3 g/dl (12.0-16.0); Mean Corpuscular Hemoglobin 26.9 pg (25.0-34.0); Mean Corpuscular Hgb Conc 31.4 g/dL (32.0-36.0); Mean Corpuscular Volume 85.7 fL (80.0-100.0); Platelet Count 162 K/uL (130-400); RDW Coefficient of Variation 14.6 % (11.5-14.5); RDW Standard Deviation 45.1 fL (36.4-46.3); Red Blood Count 3.08 M/uL (4.20-5.40); White Blood Count 5.25 K/ul (4.8-10.8)
[2023-10-07 07:55] LABS: Anion Gap 8 (3-11); BUN Creatinine Ratio 27.5 (10-20); Blood Urea Nitrogen 28 mg/dl (6-23); C Reactive Protein < 0.50 mg/dl (0-0.5); Calcium 8.7 mg/dl (8.6-10.3); Carbon Dioxide 23 mmol/L (21-32); Chloride 106 mmol/L (98-107); Creatinine Clr Calc Pharmacy 30.6 ml/min; Est GFR (African American) 57.3 ml/min; Est GFR (Non-African American) 49.4 ml/min; Glucose 99 mg/dl (70-99(Fasting)); Potassium 3.9 mmol/L (3.5-5.1); Sodium 137 mmol/L (136-145)
[2023-10-07] MEDS: carvediloL 12.5 MG TAB PO SCH (09:09)
[2023-10-07] MEDS: ENOXAPARIN INJ 40 MG/0.4 ML SYR SQ SCH (09:09)
[2023-10-07] MEDS: PANTOprazole 40 MG TAB PO SCH (09:09)
--- NOTE | 2023-10-07 14:00 | Discharge Summary ---
Date of Service October 07, 2023 Admission HPI Per Admitting Provider Lelia is an 87 year old female resident of the assisted living section of [facility] with a PMH significant for cognitive decline, HTN, hyperlipidemia, hypothyroidism, peripheral vascular disease, recurrent syncope, and recurrent UTI's who initially presented to the [facility] ED via EMS after experiencing a syncopal episode while trying to have a bowel movement this am. She was noted to be nauseated and vomiting on arrival to the ED. She was hypertensive at 202/82 on arrival but otherwise stable. Labs were significant for a WBC of 11 with neutrophil predominance of 8.6, covid 19/Influenza/RSV negative, with UA in process. CT of the head was read as "1 There is no hemorrhage, mass effect, or evidence of acute territorial ischemia by CT criteria. 2. Right parieto-occipital scalp hematoma.". Chest xray was read as "Cardiomegaly with no acute cardiopulmonary abnormality identified.". ECG shows sinus bradycardia with first degree AV block and LBBB with no previous ECG to compare to. The patient's scalp laceration was repaired and she was given 1gm IV tylenol, 12.5 mg IV benadryl, 4 mg IV zofran, and a dose of Compazine but stated that she was too dizzy and weak after walking to the ED bathroom to safely return home. At the time of the exam the patient was sitting in bed in no acute distress with her Adhcckeb-lv-wlg sitting bedside, history was obtained from both. The patient woke in her normal state of health and felt well. She ate breakfast without issue and went back to her room. She went to the bathroom as she needed to have a BM. While on the toilet, having a BM, she had an acute episode of lightheadedness and passed out. She woke on the ground and saw blood, she also had a headache. She denies other symptoms such as paresthesias, chest pain, palpitations, SOB prior to the incident. She did take her am medications shortly after breakfast. Currently her only complaints are a headache and generalized abdominal pain. she did have a formed bowel movement this am and denies recent diarrhea. She and her daughter explain that since she was 6 yrs old she will have syncopal episodes, especially with pain or discomfort. The patient states "no doctor has ever worked it up before". Her daughter states that the patient gets recurrent UTI's and often has syncopal events when they occur. The patient states she had another episode of lightheadedness/dizziness while trying to stand up off the bedside commode approximately an hour ago but did not lose consciousness. She has a living will, and power of associate attorney. She and her daughter confirm that she is a DNR/DNI. Please refer to Dr. Zuniga's attestation for any changes to the treatment plan Principal Diagnosis Syncope Discharge Exam Awake and alert, She has a fairly large scalp laceration that is approximated with maryjane there is no opening or dehiscence at this time. She shows no focal neurodeficits or lateralizing signs, breathing unlabored no accessory muscle use with good effort. Skin without rashes pallor or icterus. Discharge Data Allergies Allergy/AdvReac Type Severity Reaction Status Date / Time ciprofloxacin Allergy Unknown Unknown Unverified 10/01/23 13:59 clindamycin Allergy Unknown Unknown Unverified 10/01/23 13:59 fentanyl Allergy Unknown Unknown Unverified 10/01/23 13:59 sulfamethoxazole Allergy Unknown Unknown Unverified 10/01/23 13:59 [From ] trimethoprim [From ] Allergy Unknown Unknown Unverified 10/01/23 13:59 Consultations 10/01/23 17:45 ED Decision to Admit Stat Ordered Studies 10/01/23 11:59 CT head/brain wo con Stat 10/01/23 18:25 CT abd pelvis IV con only Stat 10/02/23 13:37 CT head/brain wo con Routine Hospital Course (1) Syncope: - Telemetry and echo overall reassuring story fits the best with vasovagal syncope given that happened on the [facility] review of her diet history, she might drink adequate amount of fluid, but it is also suspect whether or not she truly doesand dehydration may be playing a role. Compounding all of this, is obviously side effect of her antihypertensives. That said, it does not appear that further workup for her syncope is necessary as much as it would be encouraging/tracking hydration, and possibly if that alone does not seem to remedy her situation, then possibly reducing her antihypertensives and allowing for more permissive hypertension to build a bit of a buffer against syncopal events given that she sounds quite prone to fainting and vagal spells throughout her life. In regards to her cloudy urinegiven her lack of fever, lack of overt urinary signs or symptoms, and normal inflammatory markers/white count, (was 11, CRP less than 0.5), I am more suspicious she simply is asymptomatic bacteriuriagiven that without any real septic signs or symptoms that would be a little hard to put together a vasovagal event while having a bowel movement with a UTI, and I worry given the prevalence of asymptomatic bacteriuria that we could set a bad precedent that could lead her down the road to ESBL infections, C. difficile infections, etc. Discharged to personal assisted as her improved PT qualifed her to go back to a Personal Halfway. (2) Dizziness: - This spinning dizziness seems to be quite different from her lightheaded dizziness that preceded the fall, she can clearly express that. I suspect she has a concussion and some postconcussive symptoms. Continue to follow. Given her age and frailty, I did order a repeat CT to ensure no late findings consistent with a bleed. (3) Abdominal pain: -Patient had been experiencing generalized abdominal pain since arrival no complaints of this today -Also presented with multiple episodes of nausea and vomiting CT was consistent with enteritisit is quite possible she had a viral gastroenteritis as part of her symptom complex as well (4) Laceration of scalp: -Sustained a posterior right laceration of the scalp with her fall approximated with maryjane, seems to be healing well. While I suspect most of her anemia is dillutional, the daughter does note that it was bleeding fairly heavily, and it is hard to definitively rule out any acute blood loss. Obviously continue to follow. (5) UTI (urinary tract infection): See above discussion under syncopegiven lack of symptoms or lack of infectious signs or symptoms, will hold further antibiotics, follow for any development of symptoms, follow white count and CRP. (6) HTN (hypertension): No overt need to treat her blood pressures in the current range, (and less follow-up CT surprises me with any findings of a late bleed), as above under syncope, may need to allow more permissive hypertension depending on her hydration status/ability to function/etc. (7) Peripheral vascular disease: -Continue aspirin and plavix for now, pending follow-up CT (8) Hypothyroidism: -Continue levothyroxine Plan Total Time Total Time Spent Total Time Spent (In Minutes): 32 Discharge Plan Discharge Items Patient Disposition: Personal Halfway Reason For Visit: SYNCOPE, SCALP LACERATION, NAUSEA/VOMITING, UTI Discharge Diagnosis: recommend followup with PCP in 1-2 weeks. Activity: Resume your previous activity Non-emergency contact: Primary Care Provider Call non-emergency contact if: you have any medication questions Follow-up/Referrals: Vannessa Mathis [facility] [Primary Care Provider] - Diet: Low Fiber Addtl Attending Provider Instructions: Please get maryjane removed 7-14 days after laceration repair which occurred on 10/01. Taper carvedilol: once a day for 3 days, then once every 2 days for 3 doses. Pending Studies at Discharge: No Stand-Alone Forms: [employer], Smoking Cessation Skilled Items Patient informed of condition?: Yes DNR: Yes Discharge Level of Care: Other Communicable Disease: No Discharge Prognosis: Stable Lines: None Urinary Catheter: No Medications and DC Order Prescriptions: New lisinopril 2.5 mg Tablet 2.5 mg PO PM Qty: 30 0RF Continued polyethylene glycol 3350 [ClearLax] 17 gram Powder In Packet 17 g PO DAILY PRN (Reason: Constipation) sennosides-docusate sodium [Senna-S] 8.6-50 mg Tablet 1 tab-cap PO DAILY clopidogrel [Plavix] 75 mg Tablet 75 mg PO DAILY tramadol 50 mg Tablet 50 mg PO Q12H PRN (Reason: Pain) acetaminophen 500 mg Tablet 1,000 mg PO BID simvastatin 40 mg Tablet 40 mg PO HS levothyroxine 50 mcg Tablet 50 mcg PO DAILY esomeprazole magnesium [Nexium] 40 mg Capsule,Delayed Release(Dr/Ec) 40 mg PO DAILY sertraline 25 mg Tablet 0 mg PO DAILY Rx Instructions: Take 25mg w/ 50mg to equal 75mg once daily aspirin 81 mg Tablet 81 mg PO DAILY sertraline 50 mg Tablet 0 mg PO DAILY Rx Instructions: Take 25mg w/ 50mg to equal 75mg once daily Changed carvedilol 12.5 mg Tablet 12.5 mg PO DAILY Qty: 9 0RF Rx Instructions: must administer with a meal/food for 3 days, then once every 2 days for 3 doses then stop. amlodipine 2.5 mg Tablet 2.5 mg PO PM Qty: 30 0RF Discharge Orders: Discharge Order (Routine); Ordered 01/17/24 Ordered By: Sincere Saleem/Other Patient Handouts: What Is Syncope, Causes of Syncope, Preventing Falls: Staying Active, ED Scalp Laceration Sutr Stap Admission Data Admit Date/Time: 10/01/23 18:33 Attending Provider: Sincere Dotson Admit Provider: Cam Zuniga Primary Care Provider: Vannessa Mathis [facility] Other Providers: Cam Zuniga; Vannessa Mathis [facility] Other Interventions: Discharge Summary Assessment (RN) Last Done: 10/07/23 14:19 Coding Level of Care Code 63031 INP/OBS DISCH >30 MIN Diagnoses Syncope R55 Dizziness R42 Abdominal pain R10.9 Laceration of scalp S01.01XA UTI (urinary tract infection) N39.0 HTN (hypertension) I10 Peripheral vascular disease I73.9 Hypothyroidism E03.9
== END 2023-10-07 15:06 | disposition home or self-care (01) ==
LOC: EDBD → EDSEX → EDUNIT# 11:37 → ED 11:37 → SUATTDRO 18:33 → INTOOBSV 18:33 → 2N 18:33

== ENCOUNTER 2025-05-05 12:09 | Inpatient (IN) ==
[2025-05-05 13:31] LABS: Hematocrit (blood only) 38.8 % (37.0-47.0); Hemoglobin 11.8 g/dl (12.0-16.0); Immature Granulocytes # (auto) 0.02 K/uL (0.01-0.20); Immature Granulocytes % (auto) 0.3 %; Mean Corpuscular Hemoglobin 30.3 pg (25.0-34.0); Mean Corpuscular Volume 99.7 fL (80.0-100.0); Platelet Count 132 K/uL (130-400); RDW Standard Deviation 53.3 fL (36.4-46.3); Red Blood Count 3.89 M/uL (4.20-5.40); White Blood Count 6.74 K/ul (4.8-10.8)
--- NOTE | 2025-05-05 13:35 | Emergency Department Note ---
Impression & Plan SOB (shortness of breath), CHF (congestive heart failure), Acute UTI, Failure of outpatient treatment ED Provider Note NAME: EULALIA DENNIS AGE: 89 SEX: F : 1935 ARRIVES VIA: Walk-In INFORMANT: [Patient][family] ED PROVIDER(S): [Chad Quevedo MD] CHIEF COMPLAINT: Shortness of breath HISTORY OF PRESENT ILLNESS: The patient is an 89-year-old female who has had some difficulty for 2.5 weeks. She was initially coughing and short of breath and fatigued with a decreased appetite. She was wheezing. She had an x-ray that did not show any pneumonia. She was given antibiotics for bronchitis. She has finished the antibiotics and is no better. Additionally, the patient has noticed edema of her lower extremities over the last week. She has not had this issue before. There is no chest pain, no fever. No vomiting or diarrhea. As per her family, she was quite short of breath when trying to talk on the phone. PMHx/PSHx/Social Hx: See Below PHYSICAL EXAM: GENERAL: Patient is in no acute distress. HEENT: No acute trauma, normocephalic atraumatic, mucous membranes moist, no nasal congestion. NECK: No stridor, no adenopathy, no meningismus, trachea is midline. LUNGS: No respiratory distress. There are some scattered wheezes heard. No crackles. Breath sounds somewhat diminished at the bases. HEART: 2/6 systolic murmur, regular rate and rhythm. ABDOMEN: Soft, nontender, no peritonitis. EXTREMITIES: No cyanosis, full range of motion of all the joints without pain or difficulty. Moderate bilateral pedal edema. NEUROLOGIC: Oriented x 3, no acute motor or sensory deficits, no focal weakness. SKIN: No jaundice, no diaphoresis. DIFFERENTIAL DIAGNOSIS: Bronchitis or pneumonia, CHF, WI, anemia, electrolyte imbalance, viral illness, among others. EMERGENCY DEPARTMENT PROCEDURES: MEDICAL DECISION MAKING: There is no leukocytosis or concerning anemia. There is a normal platelet count. INR slightly high at 1.2. VBG did not show any acidosis or significant CO2 retention. There was no renal failure or significant electrolyte abnormality. Lactic acid level was not elevated making severe sepsis less likely. No concerning liver enzyme elevation. ECG shows what appears to be a sinus rhythm, no obvious ischemia. Cardiac enzyme testing x 1 is slightly elevated. This troponin elevation could be secondary to mismatch from her dyspnea or potentially, acute cardiac injury. Chest x-ray shows heart failure. BNP was elevated consistent with CHF. Urinalysis does show findings of infection. Flu, COVID and RSV test were negative. On exam, patient was without distress and resting comfortably on the stretcher. The patient received nitroglycerin paste, IV Lasix. She was given IV ceftriaxone as antibiotic coverage. She was given a DuoNeb to help with the wheezing noted on exam. The patient is in heart failure, this is causing her dyspnea. She is in need of a hospital stay and diuresis. Further cardiac workup is warranted. I spoke with the patient and her family, the on-call hospitalist was consulted. Prior/Outside records/notes reviewed: None ECG per my interpretation: Indication was shortness of breath. The ECG shows a sinus rhythm with a first-degree AV block. The rate is 80. There is a left bundle branch block. There is no acute ST elevation, no PVCs. The QTc is 491. Continuous Cardiac Monitoring per my interpretation: An order was placed for continuous cardiac monitoring. The monitor shows a rate of 89 with normal sinus rhythm. Imaging/x-ray results per my interpretation: Chest x-ray shows some diffuse parenchymal congestion but no obvious focal infiltrate. Chronic Medical/Social conditions affecting care: Advanced age. Care/Management discussed with: Case management, the on-call hospitalist. Level of care consideration(s): After review of the information above and other included data: --I believe the patient requires escalation of care to admission DISPOSITION: Admission Past Med/Surg History Problem List (Updated 05/05/25 @ 18:46 by Chad Quevedo MD) Failure of outpatient treatment (Acute) Acute UTI (Acute) CHF (congestive heart failure) (Acute) SOB (shortness of breath) (Acute) Volume overload CHF exacerbation Renal cyst (Chronic) Postmenopause atrophic vaginitis (Chronic) Syncope Abdominal pain UTI (urinary tract infection) GERD (gastroesophageal reflux disease) Hypothyroidism Peripheral vascular disease HTN (hypertension) Fall (Acute) Laceration of scalp (Acute) Hematoma of scalp (Acute) Dizziness (Acute) Syncope, vasovagal (Acute) Medical History Recurrent UTI Social History Smoking Status: Former smoker Tobacco Type: Cigarettes Second Hand Exposure: No; Do You Dip or Chew Tobacco: No; Hx Alcohol Use: No Hx Substance Use: No Preferred Language: Armenian Communication Ability: Effective Proof Technician Required: No Beliefs That Will Affect Care: None Current Living Situation: Personal Care Facility Feels Safe at Home: Yes Assistive Devices: Cane Allergies Allergies Allergy/AdvReac Type Severity Reaction Status Date / Time ciprofloxacin Allergy Unknown Unknown Verified 05/05/25 11:29 clindamycin Allergy Unknown Unknown Verified 05/05/25 11:29 fentanyl Allergy Unknown Unknown Verified 05/05/25 11:29 sulfamethoxazole Allergy Unknown Unknown Verified 05/05/25 11:29 [From ] trimethoprim [From ] Allergy Unknown Unknown Verified 05/05/25 11:29 Home Meds Home Medications Medication Instructions Recorded Confirmed acetaminophen 500 mg tablet 1,000 mg PO BID 10/01/23 05/05/25 aspirin 81 mg tablet 81 mg PO DAILY 10/01/23 05/05/25 clopidogrel 75 mg tablet (Plavix) 75 mg PO DAILY 10/01/23 05/05/25 esomeprazole magnesium 40 mg 40 mg PO DAILY 10/01/23 05/05/25 capsule,delayed release (Nexium) polyethylene glycol 3350 17 gram 17 g PO DAILY PRN Constipation 10/01/23 05/05/25 oral powder packet (ClearLax) sennosides 8.6 mg-docusate sodium 1 tab-cap PO DAILY 10/01/23 05/05/25 50 mg tablet (Senna-S) d-mannose 500 mg capsule (AZO mg PO 12/12/24 05/05/25 D-Mannose) diclofenac sodium 1 % topical gel 2 g topical QID 12/12/24 05/05/25 (Arthritis Pain (diclofenac)) diphenhydramine HCl 25 mg tablet 25 mg PO ONCE PRN 12/12/24 05/05/25 (Banophen) donepezil 5 mg tablet 5 mg PO DAILY 12/12/24 05/05/25 levothyroxine 50 mcg tablet 50 mcg PO DAILY 12/12/24 05/05/25 lidocaine 4 % topical patch 1 patch topical DAILY PRN 12/12/24 05/05/25 magnesium oxide 400 mg PO BID 12/12/24 05/05/25 methenamine hippurate 1 gram tablet g PO BID 12/12/24 05/05/25 amoxicillin 500 mg capsule 2,000 mg PO ONCE PRN 04/18/25 05/05/25 conjugated estrogens 0.625 mg/gram 0.3125 mg vaginal Q OTHER DAY 04/18/25 05/05/25 vaginal cream (Premarin) hydrocortisone 1 % topical cream applic topical BID PRN 04/18/25 05/05/25 iron,carbonyl 65 mg-vitamin C 125 1 tab PO BID 04/18/25 05/05/25 mg tablet,delayed release (Vitron-C) magnesium hydroxide 400 mg/5 mL 30 ml PO DAILY PRN 04/18/25 05/05/25 oral suspension (Milk of Magnesia) sertraline 100 mg tablet mg PO DAILY 04/18/25 05/05/25 sertraline 50 mg tablet 50 mg PO DAILY 04/18/25 05/05/25 simvastatin 40 mg tablet (Zocor) 40 mg PO QPM 04/18/25 05/05/25 tramadol 50 mg tablet 50 mg PO BID 04/18/25 05/05/25 tramadol 50 mg tablet 100 mg PO Q12H PRN Pain 04/18/25 05/05/25 vitamin B comp no.3-folic acid 1 1 tab PO DAILY 04/18/25 05/05/25 mg-vit C 60 mg-biotin 300 mcg tablet ([facility] Rx) Previous Rx's Medication Instructions Recorded lisinopril 2.5 mg tablet 2.5 mg PO PM #30 tabs 10/07/23 Results & Data (ED) Vital Signs Vital Signs - 24 hr 05/05/25 12:17 05/05/25 12:17 05/05/25 12:17 Temperature 36.7 C Temperature Source Oral Pulse Rate 81 Pulse Rate from SpO2 Sensor Respiratory Rate 24 Respiratory Effort / Characteristics Spontaneous Short of Breath Spontaneous Short of Breath Respiratory Depth Normal Respiratory Pattern Regular Blood Pressure 167/90 H Blood Pressure Mean 115 Blood Pressure Position Sitting Pulse Oximetry 96 97 Oxygen Delivery Method Room Air Room Air Sepsis Recent Fever Within 48 Hours No Sepsis New/Unexplained Change in Mental Status N/A Sepsis Action Taken by Nursing No Action Required 05/05/25 12:56 05/05/25 13:00 05/05/25 13:11 Temperature Temperature Source Pulse Rate 89 79 Pulse Rate from SpO2 Sensor 79 Respiratory Rate 18 Respiratory Effort / Characteristics Respiratory Depth Respiratory Pattern Blood Pressure 149/89 H Blood Pressure Mean 119 Blood Pressure Position Pulse Oximetry 96 Oxygen Delivery Method Sepsis Recent Fever Within 48 Hours Sepsis New/Unexplained Change in Mental Status Sepsis Action Taken by Nursing 05/05/25 13:39 05/05/25 14:00 05/05/25 14:36 Temperature Temperature Source Pulse Rate 82 80 79 Pulse Rate from SpO2 Sensor 82 80 79 Respiratory Rate 14 24 18 Respiratory Effort / Characteristics Respiratory Depth Respiratory Pattern Blood Pressure 176/90 H Blood Pressure Mean 118 Blood Pressure Position Pulse Oximetry 100 95 97 Oxygen Delivery Method Sepsis Recent Fever Within 48 Hours Sepsis New/Unexplained Change in Mental Status Sepsis Action Taken by Jail Medications Current Medication List: was personally reviewed by me Laboratory Data Attestation: I reviewed the patient's lab results. 05/05/25 13:11 05/05/25 13:11 Lab Results 05/05/25 05/05/25 05/05/25 Range/Units 13:11 13:38 14:30 WBC 6.74 (4.8-10.8) K/ul RBC 3.89 L (4.20-5.40) M/uL Hgb 11.8 L (12.0-16.0) g/dl Hct 38.8 (37.0-47.0) % MCV 99.7 (80.0-100.0) fL MCH 30.3 (25.0-34.0) pg MCHC 30.4 L (32.0-36.0) g/dL RDW Std Deviation 53.3 H (36.4-46.3) fL RDW Coeff of Ally 14.6 H (11.5-14.5) % Plt Count 132 (130-400) K/uL MPV 9.8 (9.4-12.4) fL Immature Gran % (Auto) 0.3 % Neut % (Auto) 75.6 % Lymph % (Auto) 13.6 % [place] % (Auto) 8.8 % Eos % (Auto) 1.3 % Baso % (Auto) 0.4 % Neut # (Auto) 5.09 (1.40-6.50) K/uL Lymph # (Auto) 0.92 L (1.20-3.40) K/uL [place] # (Auto) 0.59 (0.11-0.59) K/uL Eos # (Auto) 0.09 (0.00-0.50) K/uL Baso # (Auto) 0.03 (0.00-0.20) K/uL Immature Gran # (Auto) 0.02 (0.01-0.20) K/uL PT 13.0 H (9.0-12.0) Seconds INR 1.2 H (0.9-1.1) APTT 30 (21-31) Seconds PTT Ratio 1.1 VBG pH 7.36 (7.36-7.41) VBG pCO2 38 (38-50) mmHg VBG pO2 46 mmHg VBG HCO3 22 mmol/L VBG O2 Saturation 74.6 % VBG Base Excess -3.6 mEq/L Sodium 143 (136-145) mmol/L Potassium 3.8 (3.5-5.1) mmol/L Chloride 112 H (98-107) mmol/L Carbon Dioxide 24 (21-32) mmol/L Anion Gap 7 (3-11) BUN 21 (6-23) mg/dl Creatinine 1.11 (0.6-1.2) mg/dl Est Cr Clr Drug Dosing 30.2 ml/min eGFR 47.51 BUN/Creatinine Ratio 18.9 (10-20) Glucose 89 (70-99(Fasting)) mg/dl Lactate 1.4 (0.4-2.0) mmol/L Calcium 8.7 (8.6-10.3) mg/dl Magnesium 2.1 (1.7-2.4) mg/dl Total Bilirubin 0.7 (0.2-1.0) mg/dl AST 26 (13-39) U/L ALT 20 (7-52) U/L Alkaline Phosphatase 69 (34-104) U/L Troponin I High Sens 33.7 H (0-14) pg/ml B-Natriuretic Peptide 3385 H (0-100) pg/ml Total Protein 6.3 (6.0-8.3) gm/dl Albumin 4.1 (3.4-5.0) gm/dl Globulin 2.2 L (2.5-4.0) gm/dl Albumin/Globulin Ratio 1.9 (0.9-2) Urine Color Dark Yellow Urine Appearance Cloudy A (Clear) Urine pH 6.0 (4.5-7.5) Ur Specific [place] 1.030 (1.000-1.030) Urine Protein 3+ H (Negative) Urine Glucose (UA) Negative (Negative) Urine Ketones Trace H (Negative) Urine Blood 3+ H (Negative) Urine Nitrite Negative (Negative) Urine Bilirubin Negative (Negative) Urine Urobilinogen Negative (Negative) Ur Leukocyte Esterase 1+ H (Negative) Urine WBC (Auto) >50 H (0-5) /hpf Urine RBC (Auto) >20 H (0-2) /hpf U Hyaline Cast (Auto) 11-20 H (0-2) /lpf U Epithel Cells (Auto) 11-20 H (0-2) /hpf Urine Bacteria (Auto) 2+ H (None Seen) Hyaline Casts Present A (None Presnt) /lpf Urine Comment SARS-CoV-2 (PCR) NEGATIVE (Negative) Influenza Type A (PCR) Negative (Neg) Influenza Type B (PCR) Negative (Neg) RSV (RT-PCR) Negative (Neg) Administered Medications Discontinued Medications Albuterol (Albut/Ipratrop 3mg/0.5mg Neb 3 Ml Vial) 3 ml NEB NOW STA; Protocol Stop: 05/05/25 13:12 Last Admin: 05/05/25 13:37 Dose: 3 ml Documented By: CEF Furosemide (Furosemide 40 Mg/4 Ml Vial) 40 mg IV ONE ONE Stop: 05/05/25 14:07 Last Admin: 05/05/25 14:54 Dose: 40 mg Documented By: CEF Ceftriaxone Sodium (Rocephin) 1,000 mg in 50 mls @ 100 mls/hr IV NOW STA Stop: 05/05/25 15:20 Last Infusion: 05/05/25 17:30 Dose: Infused Documented By: Admin: 05/05/25 15:09 Dose: 100 mls/hr Documented By: CEF Nitroglycerin (Nitroglycerin 2% Ointment 30gm Tube) 1 inch EXT NOW STA Stop: 05/05/25 14:07 Last Admin: 05/05/25 15:01 Dose: 1 inch Documented By: CEF Imaging Data Radiologist's Impression: Chest X-Ray 05/05/25 12:36 XR chest 1V portable CLINICAL HISTORY: Dyspnea COMPARISON STUDY: 10/01/2023 FINDINGS: There is increased cardiomegaly with pulmonary vascular congestion. There are bilateral pleural effusions and lung base consolidation. No pneumothorax. IMPRESSION: CHF with pleural effusions and lung base consolidation. ACT 112: Negative or not required by law. Electronically signed by: Bobby Anthony M.D. 05/05/2025 2:31 PM Discharge Plan Visit Data Chief Complaint: Shortness of Breath/Dyspnea Stated Complaint: SOB, WEAKNESS, FATIGUE, COUGH, WHEEZE ED Provider: Chad Quevedo Discharge Problem: SOB (shortness of breath), CHF (congestive heart failure), Acute UTI, Failure of outpatient treatment Patient Disposition: Admitted As Inpatient Condition: Fair Discharge Instructions Interventions: ED Discharge Assessment Last Done: 05/05/25 16:31 Discharge Problem: CHF (congestive heart failure) Qualifiers: Heart failure type: unspecified Heart failure chronicity: acute Qualified Code(s): I50.9 - Heart failure, unspecified
[2025-05-05] MEDS: ALBUT/IPRATROP 3MG/0.5MG NEB 3 ML VIAL NEB STA (13:37)
[2025-05-05 13:46] LABS: Alanine Aminotransferase 20.0 U/L (7-52); Albumin Globulin Ratio 1.9 (0.9-2); Alkaline Phosphatase 69.0 U/L (34-104); Anion Gap 7.0 (3-11); Bilirubin,Total 0.7 mg/dl (0.2-1.0); Blood Urea Nitrogen 21.0 mg/dl (6-23); Calcium 8.7 mg/dl (8.6-10.3); Carbon Dioxide 24.0 mmol/L (21-32); Chloride 112.0 mmol/L (98-107); Creatinine Clr Calc Pharmacy 30.2 ml/min; Globulin 2.2 gm/dl (2.5-4.0); Glucose 89.0 mg/dl (70-99(Fasting)); Magnesium 2.1 mg/dl (1.7-2.4); Potassium 3.8 mmol/L (3.5-5.1); Sodium 143.0 mmol/L (136-145); Total Protein 6.3 gm/dl (6.0-8.3)
[2025-05-05 13:57] LABS: INR 1.2 (0.9-1.1); Partial Thromboplastin Time 30 Seconds (21-31); Prothrombin Time 13.0 Seconds (9.0-12.0)
[2025-05-05 14:10] LABS: Appearance Urine Cloudy (Clear); Bacteria Urine Automated 2+ (None Seen); Glucose Urine UA Negative (Negative); RBC Urine Automated >20 /hpf (0-2); WBC Urine Automated >50 /hpf (0-5)
[2025-05-05 14:30] LABS: Influenza A virus by PCR Negative (Neg); Influenza B virus by PCR Negative (Neg); SARS CoV2 RNA(COVID-19) Ceph NEGATIVE (Negative)
--- NOTE | 2025-05-05 14:32 | XRay Report ---
XR chest 1V portable CLINICAL HISTORY: Dyspnea COMPARISON STUDY: 10/01/2023 FINDINGS: There is increased cardiomegaly with pulmonary vascular congestion. There are bilateral ple ural effusions and lung base consolidation. No pneumothorax. IMPRESSION: CHF with pleural effusions and lung base consolidation. ACT 112: Negative or not required by law. Electronically signed by: Bobby Anthony M.D. 05/05/2025 2:31 PM
[2025-05-05 14:40] LABS: Base Excess VBG -3.6 mEq/L; HCO3 VBG 22 mmol/L; Oxygen Saturation VBG 74.6 %; PCO2 VBG 38 mmHg (38-50); PO2 VBG 46 mmHg; pH VBG 7.36 (7.36-7.41)
[2025-05-05] MEDS: FUROSEMIDE 40 MG/4 ML VIAL IV ONE (14:54)
[2025-05-05] MEDS: cefTRIAXone SODIUM 2,000 MG/50 ML BAG IV STA (14:57)
[2025-05-05] MEDS: NITROGLYCERIN 2% OINTMENT 30GM TUBE EXT STA (15:01)
--- NOTE | 2025-05-05 15:01 | Electrocardiogram Report ---
Test Reason : Blood Pressure : */* mmHG Vent. Rate : 80 BPM Atrial Rate : 80 BPM P-R Int : 268 ms QRS Dur : 130 ms QT Int : 426 ms P-R-T Axes : 59 -42 128 degrees QTcB Int : 491 ms Sinus rhythm with 1st degree A-V block Left axis deviation Left bundle branch block Abnormal ECG When compared with ECG of 01-Oct-2023 11:56, Premature atrial complexes are no longer Present Vent. rate has increased by 27 bpm T wave amplitude has decreased in Inferior leads Confirmed by Bronson Person ([id number]) on 05/05/2025 3:01:12 PM Referred By: REFERRED SELF Confirmed By: Bronson Person
[2025-05-05] MEDS ORDERED: ACETAMINOPHEN 325 MG TAB PO PRN (15:04)
[2025-05-05] MEDS: cefTRIAXone SODIUM 1,000 MG/50 ML BAG IV STA (15:09)
--- NOTE | 2025-05-05 15:19 | History & Physical Report ---
Date of Service May 05, 2025 Assessment & Plan (1) CHF exacerbation: (2) Volume overload: Plan Lelia Sanchez is 89 yo woman with PMH of CKD, PVD hypertension, recurrent UTI, mood disorder, GERD she's live in [facility] and been having several days of shortness of breath congestion and limited improvement with oral antibiotics she went to urgent care on Thursday (05/05) and referred to ED for evaluation. of note, she's been drinking multiple bowl of soap in the usp she was found to has volume ovrerload, CHF exacerbation, physical exam show leg edema, crackles at lung base started on lsaix IV for volume overload. acute CHF exacerbation. leg edema hypertension CKD recurrent UTI GERD mood disorder memory impairment acute CHF exacerbation f/u on echo, troponin elevation lasix IV 20mg BID, c/w lisinopril low salt diet. discussed likely underlying CAD c/w home med of simvastatin 40mg qHS troponin elevation; likely demand ischemia leg edema, f/u on duplex ultrasound hypertension- lisinopril 2.5mg recurrent UTI she's on methenamine 1g BID for urge incontinence she's on D-mannose oral capsule for UTI prevention memory impairment-donepezil 5mg daiy GERD-nexium 40mg PVD-plavix 75mg daily mood disorder, sertraline 150mg daily for depression hypothyroidism- synthyroid 50mcg constipation, she's PRN miralax and milk of magnesia prophylaxis, she'son amoxicllin 500mg 4 tablet prior to dental appointment code status; no code, no CPR, no transfer to ICU family updated at 05/05 in person they confirmed no cpr, no intubation History of Present Illness Chief Complaint: cc: congestion, shortness of breath for 1-2 weeks troponin elevation CXR show volume overload Primary Care Provider: MISAEL Ibarra Lelia Sanchez is a 89 yo woman with PMH of CKD, hypertension, GERD, mood disorder, recurrent UTI. 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 she's been having shortness of breath an coughin for 7-10 days, she's was reportedly take antibiotics but limited improvement. she's was referred by urgent care to come to our ED for evaluation, her CXR found volume overload her lab found troponin elevation; on interview at 2:25pm, shes' denied any chest pain she is on room air; and her lung exam show diffuse crackles at the lung base and found rales she's has leg edema and mild JVD. started on lasix and ceftriaxone by our ED colleague she's will be admitte for newly found CHF, patient and her son confirmed that she is no intubation, no CPR her daughter in law work as a RN no abdominal pain, no dizziness. last week. was having diarrhea episode Allergies Allergy/AdvReac Type Severity Reaction Status Date / Time ciprofloxacin Allergy Unknown Unknown Verified 05/05/25 11:29 clindamycin Allergy Unknown Unknown Verified 05/05/25 11:29 fentanyl Allergy Unknown Unknown Verified 05/05/25 11: sulfamethoxazole Allergy Unknown Unknown Verified 05/05/25 11: [From ] trimethoprim [From ] Allergy Unknown Unknown Verified 05/05/25 11: Home Medications Medication Instructions Recorded Confirmed Type acetaminophen 500 mg tablet 1,000 mg PO BID 10/01/23 05/05/25 History aspirin 81 mg tablet 81 mg PO DAILY 10/01/23 05/05/25 History clopidogrel 75 mg tablet (Plavix) 75 mg PO DAILY 10/01/23 05/05/25 History esomeprazole magnesium 40 mg 40 mg PO DAILY 10/01/23 05/05/25 History capsule,delayed release (Nexium) polyethylene glycol 3350 17 gram 17 g PO DAILY PRN Constipation 10/01/23 05/05/25 History oral powder packet (ClearLax) sennosides 8.6 mg-docusate sodium 1 tab-cap PO DAILY 10/01/23 05/05/25 History 50 mg tablet (Senna-S) lisinopril 2.5 mg tablet 2.5 mg PO PM #30 tabs 10/07/23 05/05/25 Rx d-mannose 500 mg capsule (AZO mg PO 12/12/24 05/05/25 History D-Mannose) diclofenac sodium 1 % topical gel 2 g topical QID 12/12/24 05/05/25 History (Arthritis Pain (diclofenac)) diphenhydramine HCl 25 mg tablet 25 mg PO ONCE PRN 12/12/24 05/05/25 History (Banophen) donepezil 5 mg tablet 5 mg PO DAILY 12/12/24 05/05/25 History levothyroxine 50 mcg tablet 50 mcg PO DAILY 12/12/24 05/05/25 History lidocaine 4 % topical patch 1 patch topical DAILY PRN 12/12/24 05/05/25 History magnesium oxide 400 mg PO BID 12/12/24 05/05/25 History methenamine hippurate 1 gram tablet g PO BID 12/12/24 05/05/25 History amoxicillin 500 mg capsule 2,000 mg PO ONCE PRN 04/18/25 05/05/25 History conjugated estrogens 0.625 mg/gram 0.3125 mg vaginal Q OTHER DAY 04/18/25 05/05/25 History vaginal cream (Premarin) hydrocortisone 1 % topical cream applic topical BID PRN 04/18/25 05/05/25 History iron,carbonyl 65 mg-vitamin C 125 1 tab PO BID 04/18/25 05/05/25 History mg tablet,delayed release (Vitron-C) magnesium hydroxide 400 mg/5 mL 30 ml PO DAILY PRN 04/18/25 05/05/25 History oral suspension (Milk of Magnesia) sertraline 100 mg tablet mg PO DAILY 04/18/25 05/05/25 History sertraline 50 mg tablet 50 mg PO DAILY 04/18/25 05/05/25 History simvastatin 40 mg tablet (Zocor) 40 mg PO QPM 04/18/25 05/05/25 History tramadol 50 mg tablet 50 mg PO BID 04/18/25 05/05/25 History tramadol 50 mg tablet 100 mg PO Q12H PRN Pain 04/18/25 05/05/25 History vitamin B comp no.3-folic acid 1 1 tab PO DAILY 04/18/25 05/05/25 History mg-vit C 60 mg-biotin 300 mcg tablet ([facility] Rx) Past Med/Surg History Problem List (Updated 05/05/25 @ 15:19 by Darlene Stevenson DO) Volume overload CHF exacerbation Renal cyst (Chronic) Postmenopause atrophic vaginitis (Chronic) Recurrent UTI (Chronic) Syncope Abdominal pain UTI (urinary tract infection) GERD (gastroesophageal reflux disease) Hypothyroidism Peripheral vascular disease HTN (hypertension) Fall (Acute) Laceration of scalp (Acute) Hematoma of scalp (Acute) Dizziness (Acute) Syncope, vasovagal (Acute) Social History Smoking Status: Former smoker Tobacco Type: Cigarettes Hx Alcohol Use: No Hx Substance Use: No Preferred Language: Faroese Communication Ability: Effective Deputy Clerk Required: No Beliefs That Will Affect Care: None Current Living Situation: Senior Care Feels Safe at Home: Yes Assistive Devices: Cane Review of Systems Review of Systems: Constitutional: no fever; no chill nges Cardiovascular: no chest pain; no orthopnea; + for edema; + for dyspnea on exertion Respiratory: coughing; congestion; no sputum production Gastrointestinal: No Nausea, No Vomiting, No Diarrhea, No Constipation, No Pain, No Heartburn, No Anorexia, No Dysphagia, No Hematochezia, No Melena, No Flatulence, No Jaundice Genitourinary: + for recurrent UTI Musculoskeletal: No Arthralgias, No Myalgias, No Joint Swelling, No Joint Stiffness, No Back Pain, No Neck Pain, No Injury History Skin: No Skin Lesions, No Pruritis, No Hair Changes, No Breast/Skin Changes, No Nipple Discharge Neuro: No Weakness, No Numbness, No Paresthesias, No Loss of Consciousness, No Syncope, No Dizziness, No Headache, No Coordination Changes, No Recent Falls Endocrine: No Polyuria, No Polydipsia, No Temperature Intolerance Physical Exam Physical Exam: VITALS: Reviewed. WEIGHT/BMI reviewed. GEN: Healthy appearing, well-developed, NAD. -Head: NC/AT; for JVD NECK: Supple, with no masses. CV: RRR, no m/r/g. LUNGS + for crackles at lung base; + for rales; no accessory muscle use. ABD: Soft, NT/ND, NBS, no masses or organomegaly. SKIN: Warm, well perfused. No skin rashes or abnormal lesions. MSK: No deformities, Normal gait. EXT: + for edema NEURO: AAox3; following command Results & Data Results & Data Vital Signs (Past 12 Hours) Vital Signs Temp Pulse Resp BP Pulse Ox O2 Del Method 05/05/25 12:56 89 05/05/25 12:17 97 Room Air 05/05/25 12:17 36.7 C 81 24 167/90 H 96 Room Air Laboratory Results Laboratory Results - last 72 hr 05/05/25 05/05/25 05/05/25 13:11 13:38 14:30 WBC 6.74 RBC 3.89 L Hgb 11.8 L Hct 38.8 MCV 99.7 MCH 30.3 MCHC 30.4 L RDW Std Deviation 53.3 H RDW Coeff of Ally 14.6 H Plt Count 132 MPV 9.8 Immature Gran % (Auto) 0.3 Neut % (Auto) 75.6 Lymph % (Auto) 13.6 [place] % (Auto) 8.8 Eos % (Auto) 1.3 Baso % (Auto) 0.4 Neut # (Auto) 5.09 Lymph # (Auto) 0.92 L [place] # (Auto) 0.59 Eos # (Auto) 0.09 Baso # (Auto) 0.03 Immature Gran # (Auto) 0.02 PT 13.0 H INR 1.2 H APTT 30 PTT Ratio 1.1 VBG pH 7.36 VBG pCO2 38 VBG pO2 46 VBG HCO3 22 VBG O2 Saturation 74.6 VBG Base Excess -3.6 Sodium 143 Potassium 3.8 Chloride 112 H Carbon Dioxide 24 Anion Gap 7 BUN 21 Creatinine 1.11 Est Cr Clr Drug Dosing 30.2 eGFR 47.51 BUN/Creatinine Ratio 18.9 Glucose 89 Lactate 1.4 Calcium 8.7 Magnesium 2.1 Total Bilirubin 0.7 AST 26 ALT 20 Alkaline Phosphatase 69 Troponin I High Sens 33.7 H B-Natriuretic Peptide 3385 H Total Protein 6.3 Albumin 4.1 Globulin 2.2 L Albumin/Globulin Ratio 1.9 Urine Color Dark Yellow Urine Appearance Cloudy A Urine pH 6.0 Ur Specific [place] 1.030 Urine Protein 3+ H Urine Glucose (UA) Negative Urine Ketones Trace H Urine Blood 3+ H Urine Nitrite Negative Urine Bilirubin Negative Urine Urobilinogen Negative Ur Leukocyte Esterase 1+ H Urine WBC (Auto) >50 H Urine RBC (Auto) >20 H U Hyaline Cast (Auto) 11-20 H U Epithel Cells (Auto) 11-20 H Urine Bacteria (Auto) 2+ H Hyaline Casts Present A Urine Comment SARS-CoV-2 (PCR) NEGATIVE Influenza Type A (PCR) Negative Influenza Type B (PCR) Negative RSV (RT-PCR) Negative Diagnostic Findings Chest X-Ray 05/05/25 12:36 XR chest 1V portable CLINICAL HISTORY: Dyspnea COMPARISON STUDY: 10/01/2023 FINDINGS: There is increased cardiomegaly with pulmonary vascular congestion. There are bilateral pleural effusions and lung base consolidation. No pneumothorax. IMPRESSION: CHF with pleural effusions and lung base consolidation. ACT 112: Negative or not required by law. Electronically signed by: Bobby Anthony M.D. 05/05/2025 2:31 PM Medications Administered Current Inpatient Medications Acetaminophen (Acetaminophen 325 Mg Tab) 650 mg PO Q4H PRN PRN Reason: pain/fever Stop: 06/04/25 15:03 Furosemide (Furosemide 20 Mg Tab) 20 mg PO BID17 [facility] Stop: 05/08/25 20:59 Ceftriaxone Sodium (Rocephin) 1,000 mg in 50 mls @ 100 mls/hr IV NOW STA Stop: 05/05/25 15:20 Last Admin: 05/05/25 15:09 Dose: 100 mls/hr Melatonin (Melatonin 3 Mg Tab) 3 mg PO HS PRN PRN Reason: Insomnia Stop: 06/04/25 15:03 Code Status & VTE Plan VTE Prophylaxis Plan VTE Prophylaxis will be ordered: Yes PG Care Time/CCT Total # of Minutes Spent Total Time Spent with Patient: Total time spent is greater than 50% in coordination of care (as documented) at patient's floor/unit and/or counseling patient: Coding Level of Care Code 61454 INT INP/OBS CARE 2/55MIN Diagnoses CHF exacerbation I50.9 Volume overload E87.70 Time Spent (min) 55
--- NOTE | 2025-05-05 16:01 | XCELERA ---
[id number]
[2025-05-05] MEDS ORDERED: FUROSEMIDE 20 MG TAB PO SCH (17:00)
[2025-05-05] MEDS ORDERED: AMOXICILLIN 500 MG CAP PO PRN (19:03)
[2025-05-05] MEDS ORDERED: POLYETHYLENE (MIRALAX) 17 GM PACK PO PRN (19:03)
[2025-05-05] MEDS ORDERED: PREMARIN VAG CRM 14 APPLN/30 GM TUBE PV SCH (19:03)
[2025-05-05] MEDS ORDERED: LIDOCAINE 5% 1 PATCH TD PRN (19:19)
[2025-05-05] MEDS ORDERED: HYDROCORTISONE 1% CRM 30 GM TUBE EXT PRN (19:22)
[2025-05-05] MEDS: DICLOFENAC SOD 1% GEL 100 GM TUBE EXT SCH (20:09)
[2025-05-05] MEDS: HEPARIN SOD 5,000 UNIT/0.5 ML VIAL SQ SCH (20:10)
[2025-05-05] MEDS: ASCORBIC ACID 500 MG TAB PO SCH (20:10)
[2025-05-05] MEDS: METHENAMINE HIPPURATE 1 GM TAB PO SCH (20:10)
[2025-05-05] MEDS: MAGNESIUM OXIDE 400 MG TAB PO SCH (20:10)
[2025-05-05] MEDS: SIMVASTATIN 40 MG TAB PO SCH (20:10)
[2025-05-05] MEDS: FERROUS SULFATE 325 MG TAB PO SCH (20:10)
[2025-05-05] MEDS: ACETAMINOPHEN 500 MG TAB PO SCH (20:10)
[2025-05-06] MEDS: LEVOTHYROXINE SODIUM 50 MCG TABLET PO SCH (05:55)
[2025-05-06 06:31] LABS: Hematocrit (blood only) 33.4 % (37.0-47.0); Hemoglobin 10.7 g/dl (12.0-16.0); Mean Corpuscular Hemoglobin 30.8 pg (25.0-34.0); Mean Corpuscular Volume 96.3 fL (80.0-100.0); Platelet Count 119 K/uL (130-400); RDW Standard Deviation 49.9 fL (36.4-46.3); Red Blood Count 3.47 M/uL (4.20-5.40); White Blood Count 6.34 K/ul (4.8-10.8)
[2025-05-06 06:46] LABS: Anion Gap 8.0 (3-11); Blood Urea Nitrogen 22.0 mg/dl (6-23); Calcium 8.4 mg/dl (8.6-10.3); Carbon Dioxide 25.0 mmol/L (21-32); Chloride 107.0 mmol/L (98-107); Creatinine Clr Calc Pharmacy 35.4 ml/min; Glucose 91.0 mg/dl (70-99(Fasting)); Potassium 3.6 mmol/L (3.5-5.1); Sodium 140.0 mmol/L (136-145)
[2025-05-06] MEDS: ASPIRIN 81 MG ECTAB PO SCH (08:15)
[2025-05-06] MEDS: CLOPIDOGREL BISULFATE 75 MG TAB PO SCH (08:15)
[2025-05-06] MEDS: DONEPEZIL HCL 5 MG TAB PO SCH (08:16)
[2025-05-06] MEDS: SERTRALINE HCL 50 MG TABLET PO SCH (08:17)
[2025-05-06] MEDS: SERTRALINE HCL 100 MG TABLET PO SCH (08:17)
[2025-05-06] MEDS: FUROSEMIDE 40 MG TAB PO SCH (08:17)
[2025-05-06] MEDS: DOCUSATE SODIUM/SENNA 50/8.6MG TAB PO SCH (08:22)
[2025-05-06] MEDS: THIAMINE HCL 200 MG in SODIUM CHLORIDE 0.9% 50 ML IV SCH (08:38)
[2025-05-06] MEDS ORDERED: [UNRECOGNIZED DRUG - REMARK] PO SCH (09:00)
--- NOTE | 2025-05-06 11:38 | Hospitalist Progress Note ---
Date of Service May 06, 2025 Assessment & Plan (1) CHF exacerbation: (2) Volume overload: Plan Lelia Sanchez is 89 yo woman with PMH of CKD, PVD(on plavix), HTN, recurrent UTI, mood disorder, GERD Patient reside in [facility] and been having several days of shortness of breath c ongestion and limited improvement with oral antibiotics she went to urgent care on Thursday (05/05) and referred to ED for evaluation. of note, she's been drinking multiple bowl of soap in the intermediate she was found to has volume ovrerload, CHF exacerbation, physical exam show leg edema, crackles at lung base started on lsaix IV for volume overload. her echo found EF of 45-50%, mitral regurgitation and large pleural effusion acute CHF exacerbation. leg edema hypertension CKD recurrent UTI GERD mood disorder memory impairment acute CHF exacerbation echo found EF of 45-50%, mitral regurgitation c/w lasix BID lasix IV 20mg BID, c/w lisinopril likey need low dose metoprolol succinate low salt diet. discussed likely underlying CAD c/w home med of simvastatin 40mg qHS large pleural effusion, c/w lasix today; repeat CXR tomorrow to ensure no effusion troponin elevation; likely demand ischemia stable at 33.4 and 32.0 leg edema, f/u on duplex ultrasound hypertension- lisinopril 2.5mg recurrent UTI she's on methenamine 1g BID for urge incontinence she's on D-mannose oral capsule for UTI prevention memory impairment-donepezil 5mg daiy GERD-nexium 40mg PVD-plavix 75mg daily mood disorder, sertraline 150mg daily for depression hypothyroidism- synthyroid 50mcg constipation, she's PRN miralax and milk of magnesia prophylaxis, she'son amoxicllin 500mg 4 tablet prior to dental appointment code status; no code, no CPR, no transfer to ICU Admission and Anticipated Discharge Date Admission Date: May 05, 2025 Subjective CHF on lasix echo found EF of 45-50%, and large left pleural effusion creatinine stable on lasix IV trop elevation; stable at 33.4 and 32 no worsening shortness of breath, no fever; no chill plan for repeat her CXR tomorrow to ensure pleural effusion is stable no other distress Review of Systems Review of Systems: Constitutional: no fever; no chill Cardiovascular: No Chest Pain, No SOB, No PND, No Dyspnea on Exertion, No Orthopnea, No Claudication, No Edema, No Palpitations Respiratory: no worsening shortness of breath; no worsening congestion Gastrointestinal: No Nausea, No Vomiting, No Diarrhea, No Constipation, No Pain, No Heartburn, No Anorexia, No Dysphagia Skin: No Skin Lesions, No Pruritis, No Hair Changes, No Breast/Skin Changes, No Nipple Discharge Neuro: No Weakness, No Numbness, No Paresthesias, No Loss of Consciousness, No Syncope, No Dizziness, No Headache, No Coordination Changes, No Recent Falls Heme/Lymph: No Bruising, No Bleeding, No Transfusions History, No Lymphadenopathy Physical Exam Physical Exam: VITALS: Reviewed. WEIGHT/BMI reviewed. GEN: non-toxic appearing PSYCH: Good Judgment. AOx3. N -Head: NC/AT; -Mouth and throat: MMM. Normal gums, muc phu, palate,. Good dentition. NECK: Supple, with no masses. CV: RRR, no m/r/g. LUNGS: + for crackles at lung base; on room air; no wheezing; decrease breath sound; no accessory muscle use ABD: Soft, NT/ND, NBS, no masses or organomegaly. : N/A MSK: No deformities, Normal gait. EXT: No clubbing, cyanosis, or edema. NEURO: AAox3 Results & Data Results & Data Vital Signs (Past 12 Hours) Vital Signs Temp Pulse Pulse Resp BP Pulse Ox O2 Del Method 05/06/25 09:00 84 05/06/25 08:19 36.8 C 83 12 152/78 H 96 Room Air 05/06/25 07:42 Room Air 05/06/25 02:18 36.7 C 83 18 164/72 H 94 Room Air Laboratory Results Laboratory Results - last 72 hr 05/05/25 05/05/25 05/05/25 13:11 13:38 14:30 WBC 6.74 RBC 3.89 L Hgb 11.8 L Hct 38.8 MCV 99.7 MCH 30.3 MCHC 30.4 L RDW Std Deviation 53.3 H RDW Coeff of Ally 14.6 H Plt Count 132 MPV 9.8 Immature Gran % (Auto) 0.3 Neut % (Auto) 75.6 Lymph % (Auto) 13.6 Amelia % (Auto) 8.8 Eos % (Auto) 1.3 Baso % (Auto) 0.4 Neut # (Auto) 5.09 Lymph # (Auto) 0.92 L Amelia # (Auto) 0.59 Eos # (Auto) 0.09 Baso # (Auto) 0.03 Immature Gran # (Auto) 0.02 PT 13.0 H INR 1.2 H APTT 30 PTT Ratio 1.1 VBG pH 7.36 VBG pCO2 38 VBG pO2 46 VBG HCO3 22 VBG O2 Saturation 74.6 VBG Base Excess -3.6 Sodium 143 Potassium 3.8 Chloride 112 H Carbon Dioxide 24 Anion Gap 7 BUN 21 Creatinine 1.11 Est Cr Clr Drug Dosing 30.2 eGFR 47.51 BUN/Creatinine Ratio 18.9 Glucose 89 Lactate 1.4 Calcium 8.7 Magnesium 2.1 Total Bilirubin 0.7 AST 26 ALT 20 Alkaline Phosphatase 69 Troponin I High Sens 33.7 H B-Natriuretic Peptide 3385 H Total Protein 6.3 Albumin 4.1 Globulin 2.2 L Albumin/Globulin Ratio 1.9 Urine Color Dark Yellow Urine Appearance Cloudy A Urine pH 6.0 Ur Specific [place] 1.030 Urine Protein 3+ H Urine Glucose (UA) Negative Urine Ketones Trace H Urine Blood 3+ H Urine Nitrite Negative Urine Bilirubin Negative Urine Urobilinogen Negative Ur Leukocyte Esterase 1+ H Urine WBC (Auto) >50 H Urine RBC (Auto) >20 H U Hyaline Cast (Auto) 11-20 H U Epithel Cells (Auto) 11-20 H Urine Bacteria (Auto) 2+ H Hyaline Casts Present A Urine Comment SARS-CoV-2 (PCR) NEGATIVE Influenza Type A (PCR) Negative Influenza Type B (PCR) Negative RSV (RT-PCR) Negative 05/05/25 05/06/25 14:59 05:51 WBC 6.34 RBC 3.47 L Hgb 10.7 L Hct 33.4 L MCV 96.3 MCH 30.8 MCHC 32.0 RDW Std Deviation 49.9 H RDW Coeff of Ally 14.1 Plt Count 119 L MPV 9.6 Immature Gran % (Auto) Neut % (Auto) Lymph % (Auto) Amelia % (Auto) Eos % (Auto) Baso % (Auto) Neut # (Auto) Lymph # (Auto) Amelia # (Auto) Eos # (Auto) Baso # (Auto) Immature Gran # (Auto) PT INR APTT PTT Ratio VBG pH VBG pCO2 VBG pO2 VBG HCO3 VBG O2 Saturation VBG Base Excess Sodium 140 Potassium 3.6 Chloride 107 Carbon Dioxide 25 Anion Gap 8 BUN 22 Creatinine 1.09 Est Cr Clr Drug Dosing 35.4 eGFR 48.56 BUN/Creatinine Ratio 20.2 H Glucose 91 Lactate Calcium 8.4 L Magnesium Total Bilirubin AST ALT Alkaline Phosphatase Troponin I High Sens 33.4 H 32.0 H B-Natriuretic Peptide Total Protein Albumin Globulin Albumin/Globulin Ratio Urine Color Urine Appearance Urine pH Ur Specific [place] Urine Protein Urine Glucose (UA) Urine Ketones Urine Blood Urine Nitrite Urine Bilirubin Urine Urobilinogen Ur Leukocyte Esterase Urine WBC (Auto) Urine RBC (Auto) U Hyaline Cast (Auto) U Epithel Cells (Auto) Urine Bacteria (Auto) Hyaline Casts Urine Comment SARS-CoV-2 (PCR) Influenza Type A (PCR) Influenza Type B (PCR) RSV (RT-PCR) Medications Administered Current Inpatient Medications Acetaminophen (Acetaminophen 325 Mg Tab) 650 mg PO Q4H PRN PRN Reason: pain/fever Stop: 06/04/25 15:03 Acetaminophen (Acetaminophen 500 Mg Tab) 1,000 mg PO BID [facility] Stop: 06/04/25 20:59 Last Admin: 05/06/25 08:22 Dose: 1,000 mg Ascorbic Acid (Ascorbic Acid 500 Mg Tab) 250 mg PO BID [facility] Stop: 06/04/25 20:59 Last Admin: 05/06/25 08:15 Dose: 250 mg Aspirin (Aspirin 81 Mg Ectab) 81 mg PO DAILY [facility] Stop: 06/05/25 08:59 Last Admin: 05/06/25 08:15 Dose: 81 mg Clopidogrel Bisulfate (Clopidogrel Bisulfate 75 Mg Tab) 75 mg PO DAILY [facility] Stop: 06/05/25 08:59 Last Admin: 05/06/25 08:15 Dose: 75 mg Diclofenac Sodium (Diclofenac Sod 1% Gel 100 Gm Tube) 2 gm EXT QID [facility]; Protocol Stop: 06/04/25 19:02 Last Admin: 05/06/25 08:16 Dose: 2 gm Donepezil HCl (Donepezil Hcl 5 Mg Tab) 5 mg PO DAILY [facility] Stop: 06/05/25 08:59 Last Admin: 05/06/25 08:16 Dose: 5 mg Ferrous Sulfate (Ferrous Sulfate 325 Mg Tab) 325 mg PO BID [facility] Stop: 06/04/25 20:59 Last Admin: 05/06/25 08:16 Dose: 325 mg Furosemide (Furosemide 40 Mg Tab) 40 mg PO BID17 [facility] Stop: 06/05/25 08:59 Last Admin: 05/06/25 08:17 Dose: 40 mg Heparin Sodium (Porcine) (Heparin Sod 5,000 Unit/0.5 Ml Vial) 5,000 units SQ Q12 [facility] Stop: 06/04/25 20:59 Last Admin: 05/06/25 08:22 Dose: 5,000 units Hydrocortisone (Hydrocortisone 1% Crm 30 Gm Tube) 1 appln EXT BID PRN PRN Reason: Allergic Reaction Stop: 06/04/25 19:21 Ceftriaxone Sodium (Rocephin) 2,000 mg in 50 mls @ 100 mls/hr IV Q24H [facility] Stop: 05/08/25 14:59 Thiamine HCl 200 mg/ Sodium (Chloride) 52 mls @ 210 mls/hr IV QAM [facility] Stop: 06/05/25 08:59 Last Infusion: 05/06/25 08:55 Dose: Infused Levothyroxine Sodium (Levothyroxine Sodium 50 Mcg Tablet) 50 mcg PO DAILYBB [facility] Stop: 06/05/25 06:29 Last Admin: 05/06/25 05:55 Dose: 50 mcg Lidocaine (Lidocaine 5% 1 Patch) 1 patch TD DAILY PRN PRN Reason: As Needed for Pain Stop: 06/04/25 19:18 Lisinopril (Lisinopril 2.5 Mg Tab) 2.5 mg PO PM [facility] Stop: 06/04/25 20:59 Last Admin: 05/05/25 20:10 Dose: 2.5 mg Magnesium Oxide (Magnesium Oxide 400 Mg Tab) 400 mg PO BID [facility] Stop: 06/04/25 20:59 Last Admin: 05/06/25 08:17 Dose: 400 mg Melatonin (Melatonin 3 Mg Tab) 3 mg PO HS PRN PRN Reason: Insomnia Stop: 06/04/25 15:03 Methenamine Hippurate (Methenamine Hippurate 1 Gm Tab) 1 gm PO BID [facility] Stop: 05/10/25 20:59 Last Admin: 05/06/25 08:17 Dose: 1 gm Miscellaneous (Remove Lidoderm Patch) 1 each N/A DAILY@2100 [facility] Stop: 06/05/25 20:59 Pantoprazole Sodium (Pantoprazole 40 Mg Tab) 40 mg PO DAILY [facility] Stop: 06/05/25 08:59 Last Admin: 05/06/25 08:17 Dose: 40 mg Polyethylene Glycol (Polyethylene (Miralax) 17 Gm Pack) 17 gm PO DAILY PRN PRN Reason: Constipation Stop: 06/04/25 19:02 Senna/Docusate Sodium (Docusate Sodium/Senna 50/8.6mg Tab) 1 tab PO DAILY [facility] Stop: 06/05/25 08:59 Last Admin: 05/06/25 08:22 Dose: 1 tab Sertraline HCl (Sertraline Hcl 100 Mg Tablet) 100 mg PO DAILY [facility] Stop: 06/05/25 08:59 Last Admin: 05/06/25 08:17 Dose: 100 mg Sertraline HCl (Sertraline Hcl 50 Mg Tablet) 50 mg PO DAILY [facility] Stop: 06/05/25 08:59 Last Admin: 05/06/25 08:17 Dose: 50 mg Simvastatin (Simvastatin 40 Mg Tab) 40 mg PO QPM [facility] Stop: 06/04/25 20:59 Last Admin: 05/05/25 20:10 Dose: 40 mg Tramadol HCl (Tramadol Hcl 50 Mg Tablet) 50 mg PO BID [facility] Stop: 06/04/25 20:59 Last Admin: 05/06/25 08:22 Dose: 50 mg Tramadol HCl (Tramadol Hcl 50 Mg Tablet) 100 mg PO Q12H PRN PRN Reason: Pain Stop: 06/04/25 19:02 PG Care Time/CCT Total # of Minutes Spent Total Time Spent with Patient: Total time spent is greater than 50% in coordination of care (as documented) at patient's floor/unit and/or counseling patient: Coding Level of Care Code 85808 SUB INP/OBS CARE 2/35MIN Diagnoses CHF exacerbation I50.9 Volume overload E87.70 Time Spent (min) 35
[2025-05-06] MEDS: cefTRIAXone SODIUM 2,000 MG/50 ML BAG IV SCH (15:39)
[2025-05-06] MEDS: MELATONIN 3 MG TAB PO PRN (20:20)
[2025-05-06] MEDS: REMOVE LIDODERM PATCH SCH (20:25)
[2025-05-07 08:03] LABS: Hematocrit (blood only) 35.0 % (37.0-47.0); Hemoglobin 10.8 g/dl (12.0-16.0); Mean Corpuscular Hemoglobin 30.2 pg (25.0-34.0); Mean Corpuscular Volume 97.8 fL (80.0-100.0); Platelet Count 133 K/uL (130-400); RDW Standard Deviation 50.6 fL (36.4-46.3); Red Blood Count 3.58 M/uL (4.20-5.40); White Blood Count 5.13 K/ul (4.8-10.8)
[2025-05-07 08:24] LABS: Anion Gap 7.0 (3-11); Blood Urea Nitrogen 20.0 mg/dl (6-23); Calcium 8.5 mg/dl (8.6-10.3); Carbon Dioxide 32.0 mmol/L (21-32); Chloride 102.0 mmol/L (98-107); Creatinine Clr Calc Pharmacy 36.4 ml/min; Glucose 109.0 mg/dl (70-99(Fasting)); Potassium 3.3 mmol/L (3.5-5.1); Sodium 141.0 mmol/L (136-145)
--- NOTE | 2025-05-07 09:02 | Hospitalist Progress Note ---
Date of Service May 07, 2025 Assessment & Plan (1) CHF exacerbation: (2) Volume overload: Plan Lelia Sanchez is 89 yo woman with PMH of CKD, PVD(on plavix), HTN, recurrent UTI, mood disorder, GERD Patient reside in [facility] and been having several days of shortness of breath c ongestion and limited improvement with oral antibiotics she went to urgent care on Thursday (05/05) and referred to ED for evaluation. of note, she's been drinking multiple bowl of soap in the custodial she was found to has volume ovrerload, CHF exacerbation, physical exam show leg edema, crackles at lung base started on lsaix IV for volume overload. her echo found EF of 45-50%, mitral regurgitation and large pleural effusion acute CHF exacerbation. leg edema hypertension CKD recurrent UTI GERD mood disorder memory impairment acute CHF exacerbation echo found EF of 45-50%, mitral regurgitation c/w lasix BID lasix IV 20mg BID, c/w lisinopril likey need low dose metoprolol succinate low salt diet. repeat CXR today to r/o pleural effusion discussed likely underlying CAD c/w home med of simvastatin 40mg qHS large pleural effusion, c/w lasix today; repeat CXR to ensure no effusion deposition, dc 24-48 hours away determine factor, pleural effusion, improvement on overload on CXR troponin elevation; likely demand ischemia stable at 33.4 and 32.0 leg edema, f/u on duplex ultrasound hypertension- lisinopril 2.5mg recurrent UTI she's on methenamine 1g BID for urge incontinence she's on D-mannose oral capsule for UTI prevention memory impairment-donepezil 5mg daiy GERD-nexium 40mg PVD-plavix 75mg daily mood disorder, sertraline 150mg daily for depression hypothyroidism- synthyroid 50mcg constipation, she's PRN miralax and milk of magnesia prophylaxis, she'son amoxicllin 500mg 4 tablet prior to dental appointment code status; no code, no CPR, no transfer to ICU Admission and Anticipated Discharge Date Admission Date: May 05, 2025 Subjective she's on lasix IV, breathing stable repeat CXR today to determine if left pleural effusion resolved. in addition. no chest pain no shortness of breath dc 24-48 hours away, depending on CXR finding, whether volume overload improved conitnue to monitor for temperature Review of Systems Review of Systems: Constitutional: , No Fever, No Chills, No Night Sweats, Cardiovascular: No Chest Pain, No SOB, No PND, No Dyspnea on Exertion, No Orthopnea, No Claudication, No Edema, No Palpitations Respiratory: No Cough, No Sputum, No Wheezing, No Smoke Exposure, No Dyspnea Gastrointestinal: No Nausea, No Vomiting, No Diarrhea, No Constipation, No Pain, No Heartburn, No Anorexia, Skin: No Skin Lesions, No Pruritis, No Hair Changes, No Breast/Skin Changes, No Nipple Discharge Neuro: No Weakness, No Numbness, No Paresthesias, No Loss of Consciousness, No Syncope, No Dizziness, No Headache, No Coordination Changes, No Recent Falls Heme/Lymph: No Bruising, No Bleeding, No Transfusions History, No Lymphadenopathy Endocrine: No Polyuria, No Polydipsia, No Temperature Intolerance Physical Exam Physical Exam: VITALS: Reviewed. WEIGHT/BMI reviewed. GEN: Healthy appearing, well-developed, NAD. -Head: NC/AT; NECK: Supple, with no masses. CV: RRR, no m/r/g. LUNGS: CTAB, no w/r/c. decrease breath sound at lung base; + for crackles; on room air ABD: Soft, NT/ND, NBS, no masses or organomegaly. MSK: No deformities, Normal gait. EXT: No clubbing, cyanosis, or edema. NEURO: AAOx3 Results & Data Results & Data Vital Signs (Past 12 Hours) Vital Signs Temp Pulse Pulse Resp BP Pulse Ox O2 Del Method 05/07/25 08:26 36.4 C L 81 20 150/77 H 95 Room Air 05/07/25 04:36 36.4 C L 91 H 16 148/73 H 92 Room Air 05/06/25 22:39 36.6 C 85 18 154/77 H 95 Room Air 05/06/25 21:45 79 Laboratory Results Laboratory Results - last 72 hr 05/05/25 05/05/25 05/05/25 13:11 13:38 14:30 WBC 6.74 RBC 3.89 L Hgb 11.8 L Hct 38.8 MCV 99.7 MCH 30.3 MCHC 30.4 L RDW Std Deviation 53.3 H RDW Coeff of Ally 14.6 H Plt Count 132 MPV 9.8 Immature Gran % (Auto) 0.3 Neut % (Auto) 75.6 Lymph % (Auto) 13.6 [place] % (Auto) 8.8 Eos % (Auto) 1.3 Baso % (Auto) 0.4 Neut # (Auto) 5.09 Lymph # (Auto) 0.[address] [place] # (Auto) 0.59 Eos # (Auto) 0.09 Baso # (Auto) 0.03 Immature Gran # (Auto) 0.02 PT 13.0 H INR 1.2 H APTT 30 PTT Ratio 1.1 VBG pH 7.36 VBG pCO2 38 VBG pO2 46 VBG HCO3 22 VBG O2 Saturation 74.6 VBG Base Excess -3.6 Sodium 143 Potassium 3.8 Chloride 112 H Carbon Dioxide 24 Anion Gap 7 BUN 21 Creatinine 1.11 Est Cr Clr Drug Dosing 30.2 eGFR 47.51 BUN/Creatinine Ratio 18.9 Glucose 89 Lactate 1.4 Calcium 8.7 Magnesium 2.1 Total Bilirubin 0.7 AST 26 ALT 20 Alkaline Phosphatase 69 Troponin I High Sens 33.7 H B-Natriuretic Peptide 3385 H Total Protein 6.3 Albumin 4.1 Globulin 2.2 L Albumin/Globulin Ratio 1.9 Urine Color Dark Yellow Urine Appearance Cloudy A Urine pH 6.0 Ur Specific [place] 1.030 Urine Protein 3+ H Urine Glucose (UA) Negative Urine Ketones Trace H Urine Blood 3+ H Urine Nitrite Negative Urine Bilirubin Negative Urine Urobilinogen Negative Ur Leukocyte Esterase 1+ H Urine WBC (Auto) >50 H Urine RBC (Auto) >20 H U Hyaline Cast (Auto) 11-20 H U Epithel Cells (Auto) 11-20 H Urine Bacteria (Auto) 2+ H Hyaline Casts Present A Urine Comment SARS-CoV-2 (PCR) NEGATIVE Influenza Type A (PCR) Negative Influenza Type B (PCR) Negative RSV (RT-PCR) Negative 05/05/25 05/06/25 05/07/25 14:59 05:51 07:33 WBC 6.34 5.13 RBC 3.47 L 3.58 L Hgb 10.7 L 10.8 L Hct 33.4 L 35.0 L MCV 96.3 97.8 MCH 30.8 30.2 MCHC 32.0 30.9 L RDW Std Deviation 49.9 H 50.6 H RDW Coeff of Ally 14.1 14.0 Plt Count 119 L 133 MPV 9.6 10.2 Immature Gran % (Auto) Neut % (Auto) Lymph % (Auto) [place] % (Auto) Eos % (Auto) Baso % (Auto) Neut # (Auto) Lymph # (Auto) [place] # (Auto) Eos # (Auto) Baso # (Auto) Immature Gran # (Auto) PT INR APTT PTT Ratio VBG pH VBG pCO2 VBG pO2 VBG HCO3 VBG O2 Saturation VBG Base Excess Sodium 140 141 Potassium 3.6 3.3 L Chloride 107 102 Carbon Dioxide 25 32 Anion Gap 8 7 BUN 22 20 Creatinine 1.09 1.05 Est Cr Clr Drug Dosing 35.4 36.4 eGFR 48.56 50.79 BUN/Creatinine Ratio 20.2 H 19.0 Glucose 91 109 H Lactate Calcium 8.4 L 8.5 L Magnesium Total Bilirubin AST ALT Alkaline Phosphatase Troponin I High Sens 33.4 H 32.0 H B-Natriuretic Peptide Total Protein Albumin Globulin Albumin/Globulin Ratio Urine Color Urine Appearance Urine pH Ur Specific [place] Urine Protein Urine Glucose (UA) Urine Ketones Urine Blood Urine Nitrite Urine Bilirubin Urine Urobilinogen Ur Leukocyte Esterase Urine WBC (Auto) Urine RBC (Auto) U Hyaline Cast (Auto) U Epithel Cells (Auto) Urine Bacteria (Auto) Hyaline Casts Urine Comment SARS-CoV-2 (PCR) Influenza Type A (PCR) Influenza Type B (PCR) RSV (RT-PCR) Diagnostic Findings Chest X-Ray 05/05/25 12:36 XR chest 1V portable CLINICAL HISTORY: Dyspnea COMPARISON STUDY: 10/01/2023 FINDINGS: There is increased cardiomegaly with pulmonary vascular congestion. There are bilateral pleural effusions and lung base consolidation. No pneumothorax. IMPRESSION: CHF with pleural effusions and lung base consolidation. ACT 112: Negative or not required by law. Electronically signed by: Bobby Anthony M.D. 05/05/2025 2:31 PM Medications Administered Current Inpatient Medications Acetaminophen (Acetaminophen 325 Mg Tab) 650 mg PO Q4H PRN PRN Reason: pain/fever Stop: 06/04/25 15:03 Acetaminophen (Acetaminophen 500 Mg Tab) 1,000 mg PO BID [facility] Stop: 06/04/25 20:59 Last Admin: 05/07/25 08:18 Dose: 1,000 mg Ascorbic Acid (Ascorbic Acid 500 Mg Tab) 250 mg PO BID [facility] Stop: 06/04/25 20:59 Last Admin: 05/07/25 08:13 Dose: 250 mg Aspirin (Aspirin 81 Mg Ectab) 81 mg PO DAILY [facility] Stop: 06/05/25 08:59 Last Admin: 05/07/25 08:13 Dose: 81 mg Clopidogrel Bisulfate (Clopidogrel Bisulfate 75 Mg Tab) 75 mg PO DAILY [facility] Stop: 06/05/25 08:59 Last Admin: 05/07/25 08:13 Dose: 75 mg Diclofenac Sodium (Diclofenac Sod 1% Gel 100 Gm Tube) 2 gm EXT QID [facility]; Protoco l Stop: 06/04/25 19:02 Last Admin: 05/07/25 08:14 Dose: 2 gm Donepezil HCl (Donepezil Hcl 5 Mg Tab) 5 mg PO DAILY [facility] Stop: 06/05/25 08:59 Last Admin: 05/07/25 08:13 Dose: 5 mg Ferrous Sulfate (Ferrous Sulfate 325 Mg Tab) 325 mg PO BID [facility] Stop: 06/04/25 20:59 Last Admin: 05/07/25 08:14 Dose: 325 mg Furosemide (Furosemide 40 Mg Tab) 40 mg PO BID17 [facility] Stop: 06/05/25 08:59 Last Admin: 05/07/25 08:42 Dose: 40 mg Heparin Sodium (Porcine) (Heparin Sod 5,000 Unit/0.5 Ml Vial) 5,000 units SQ Q12 [facility] Stop: 06/04/25 20:59 Last Admin: 05/07/25 08:19 Dose: 5,000 units Hydrocortisone (Hydrocortisone 1% Crm 30 Gm Tube) 1 appln EXT BID PRN PRN Reason: Allergic Reaction Stop: 06/04/25 19:21 Ceftriaxone Sodium (Rocephin) 2,000 mg in 50 mls @ 100 mls/hr IV Q24H [facility] Stop: 05/08/25 14:59 Last Infusion: 05/06/25 17:30 Dose: Infused Thiamine HCl 200 mg/ Sodium (Chloride) 52 mls @ 210 mls/hr IV QAM [facility] Stop: 06/05/25 08:59 Last Admin: 05/07/25 08:13 Dose: 210 mls/hr Levothyroxine Sodium (Levothyroxine Sodium 50 Mcg Tablet) 50 mcg PO DAILYBB [facility] Stop: 06/05/25 06:29 Last Admin: 05/07/25 05:55 Dose: 50 mcg Lidocaine (Lidocaine 5% 1 Patch) 1 patch TD DAILY PRN PRN Reason: As Needed for Pain Stop: 06/04/25 19:18 Lisinopril (Lisinopril 2.5 Mg Tab) 2.5 mg PO PM [facility] Stop: 06/04/25 20:59 Last Admin: 05/06/25 20:18 Dose: 2.5 mg Magnesium Oxide (Magnesium Oxide 400 Mg Tab) 400 mg PO BID [facility] Stop: 06/04/25 20:59 Last Admin: 05/07/25 08:14 Dose: 400 mg Melatonin (Melatonin 3 Mg Tab) 3 mg PO HS PRN PRN Reason: Insomnia Stop: 06/04/25 15:03 Last Admin: 05/06/25 20:20 Dose: 3 mg Methenamine Hippurate (Methenamine Hippurate 1 Gm Tab) 1 gm PO BID [facility] Stop: 05/10/25 20:59 Last Admin: 05/07/25 08:13 Dose: 1 gm Miscellaneous (Remove Lidoderm Patch) 1 each N/A DAILY@2100 [facility] Stop: 06/05/25 20:59 Last Admin: 05/06/25 20:25 Dose: Not Given Pantoprazole Sodium (Pantoprazole 40 Mg Tab) 40 mg PO DAILY [facility] Stop: 06/05/25 08:59 Last Admin: 05/07/25 08:14 Dose: 40 mg Polyethylene Glycol (Polyethylene (Miralax) 17 Gm Pack) 17 gm PO DAILY PRN PRN Reason: Constipation Stop: 06/04/25 19:02 Senna/Docusate Sodium (Docusate Sodium/Senna 50/8.6mg Tab) 1 tab PO DAILY [facility] Stop: 06/05/25 08:59 Last Admin: 05/07/25 08:18 Dose: 1 tab Sertraline HCl (Sertraline Hcl 100 Mg Tablet) 100 mg PO DAILY [facility] Stop: 06/05/25 08:59 Last Admin: 05/07/25 08:14 Dose: 100 mg Sertraline HCl (Sertraline Hcl 50 Mg Tablet) 50 mg PO DAILY [facility] Stop: 06/05/25 08:59 Last Admin: 05/07/25 08:14 Dose: 50 mg Simvastatin (Simvastatin 40 Mg Tab) 40 mg PO QPM [facility] Stop: 06/04/25 20:59 Last Admin: 05/06/25 20:18 Dose: 40 mg Tramadol HCl (Tramadol Hcl 50 Mg Tablet) 50 mg PO BID [facility] Stop: 06/04/25 20:59 Last Admin: 05/07/25 08:18 Dose: 50 mg Tramadol HCl (Tramadol Hcl 50 Mg Tablet) 100 mg PO Q12H PRN PRN Reason: Pain Stop: 06/04/25 19:02 PG Care Time/CCT Total # of Minutes Spent Total Time Spent with Patient: Total time spent is greater than 50% in coordination of care (as documented) at patient's floor/unit and/or counseling patient: Coding Level of Care Code 05091 SUB INP/OBS CARE 10/15MIN Diagnoses CHF exacerbation I50.9 Volume overload E87.70 Time Spent (min) 25
--- NOTE | 2025-05-07 09:20 | XRay Report ---
Technique: A frontal view of the chest was obtained Comparison is made to the prior examination dated 05/05/2025 Findings: There is suspected mild pulmonary edema. There are bilateral lower lobe opacities that could be due to either atelectasis or pneumonia. The heart is mildly enlarged. No pneumothorax is seen. There are small bilateral pleural effusions No fracture is noted. No foreign body is seen Impression: 1. Cardiomegaly and pulmonary edema 2. Small bilateral pleural effusions 3. Bilateral lower lobe opacities that could be due to either atelectasis or pneumonia Electronically signed by Steven Staley 05-07-2025 09:19 AM
[2025-05-07] MEDS: POTASSIUM CHLORIDE 20 MEQ/15 ML UDC PO SCH (13:29)
[2025-05-07] MEDS: FUROSEMIDE 40 MG/4 ML VIAL IV SCH (13:59)
[2025-05-07] MEDS: FUROSEMIDE 40 MG/4 ML VIAL IV ONE (15:33)
[2025-05-08 07:20] LABS: Hematocrit (blood only) 38.6 % (37.0-47.0); Hemoglobin 12.1 g/dl (12.0-16.0); Mean Corpuscular Hemoglobin 30.2 pg (25.0-34.0); Mean Corpuscular Volume 96.3 fL (80.0-100.0); Platelet Count 137 K/uL (130-400); RDW Standard Deviation 48.8 fL (36.4-46.3); Red Blood Count 4.01 M/uL (4.20-5.40); White Blood Count 5.33 K/ul (4.8-10.8)
[2025-05-08 07:41] LABS: Anion Gap 8.0 (3-11); Blood Urea Nitrogen 20.0 mg/dl (6-23); Calcium 8.6 mg/dl (8.6-10.3); Carbon Dioxide 34.0 mmol/L (21-32); Chloride 99.0 mmol/L (98-107); Creatinine Clr Calc Pharmacy 33.9 ml/min; Glucose 88.0 mg/dl (70-99(Fasting)); Magnesium 1.6 mg/dl (1.7-2.4); Potassium 3.6 mmol/L (3.5-5.1); Sodium 141.0 mmol/L (136-145)
[2025-05-08] MEDS: FUROSEMIDE 40 MG/4 ML VIAL IV SCH (08:38)
--- NOTE | 2025-05-08 11:18 | Hospitalist Progress Note ---
Date of Service May 08, 2025 Assessment & Plan (1) CHF exacerbation: (2) Volume overload: Plan Lelia Sanchez is 89 yo woman with PMH of CKD, PVD(on plavix), HTN, recurrent UTI, mood disorder, GERD Patient reside in [facility] and been having several days of shortness of breath c ongestion and limited improvement with oral antibiotics she went to urgent care on Thursday (05/05) and referred to ED for evaluation. of note, she's been drinking multiple bowl of soap in the longterm she was found to has volume ovrerload, CHF exacerbation, physical exam show leg edema, crackles at lung base started on lsaix IV for volume overload. her echo found EF of 45-50%, mitral regurgitation and large pleural effusion acute CHF exacerbation. leg edema hypertension CKD recurrent UTI GERD mood disorder memory impairment acute CHF exacerbation echo found EF of 45-50%, mitral regurgitation she still has leg edema, increasing her lasix dose likey need low dose metoprolol succinate low salt diet, nutrition for evaluation repeat CXR today to r/o pleural effusion discussed likely underlying CAD c/w home med of simvastatin 40mg qHS large pleural effusion that was found on echo her CXR on 05/07 show small effusion c/w lasix deposition, dc 24-48 hours away troponin elevation; likely demand ischemia hypertension- lisinopril 2.5mg recurrent UTI she's on methenamine 1g BID for urge incontinence she's on D-mannose oral capsule for UTI prevention memory impairment-donepezil 5mg daiy GERD-nexium 40mg PVD-plavix 75mg daily mood disorder, sertraline 150mg daily for depression hypothyroidism- synthyroid 50mcg constipation, she's PRN miralax and milk of magnesia prophylaxis, she'son amoxicllin 500mg 4 tablet prior to dental appointment code status; no code, no CPR, no transfer to ICU Admission and Anticipated Discharge Date Admission Date: May 05, 2025 Subjective her breathing is stable, will plan for IV diuretics of still have leg edema. Review of Systems Review of Systems: Constitutional: No Weight Change, No Fever, No Chills, No Night Sweats, No Fatigue, No Malaise Cardiovascular: No Chest Pain, No SOB, No PND, No Dyspnea on Exertion, No Orthopnea, No Claudication, No Edema, No Palpitations Respiratory: No Cough, No Sputum, No Wheezing, No Smoke Exposure, No Dyspnea Gastrointestinal: No Nausea, No Vomiting, No Diarrhea, No Constipation, No Pain, No Heartburn, No Anorexia, No Dysphagia, No Hematochezia, No Melena, No Flatulence, No Jaundice Musculoskeletal: No Arthralgias, No Myalgias, No Joint Swelling, No Joint Stiffness, No Back Pain, No Neck Pain, No Injury History Skin: No Skin Lesions, No Pruritis, No Hair Changes, No Breast/Skin Changes, No Nipple Discharge Neuro: No Weakness, No Numbness, No Paresthesias, No Loss of Consciousness, No Syncope, No Dizziness, No Headache, No Coordination Changes, No Recent Falls Physical Exam Physical Exam: VITALS: Reviewed. WEIGHT/BMI reviewed. GEN: Healthy appearing, well-developed, NAD. -Head: NC/AT; -Eyes: PERRL, EOMI. No discharge or redn ess; NECK: Supple, with no masses. CV: RRR, no m/r/g. LUNGS: CTAB, no w/r/c. crackles at lung base; on room air ABD: Soft, NT/ND, NBS, no masses or organomegaly. SKIN: Warm, well perfused. No skin rashes or abnormal lesions. EXT: + for edema NEURO: Ambulating with no limitations. Normal muscle strength and tone. No focal deficits. Results & Data Results & Data Vital Signs (Past 12 Hours) Vital Signs Temp Pulse Resp BP Pulse Ox O2 Del Method 05/08/25 11:07 36.5 C 87 20 112/69 95 Room Air 05/08/25 09:00 Room Air 05/08/25 08:07 36.3 C L 80 18 150/76 H 96 Room Air 05/08/25 03:07 36.5 C 92 H 18 146/83 H 96 Room Air 05/07/25 23:33 36.6 C 85 18 149/82 H 94 Room Air Laboratory Results Laboratory Results - last 72 hr 05/05/25 05/05/25 05/05/25 13:11 13:38 14:30 WBC 6.74 RBC 3.89 L Hgb 11.8 L Hct 38.8 MCV 99.7 MCH 30.3 MCHC 30.4 L RDW Std Deviation 53.3 H RDW Coeff of Ally 14.6 H Plt Count 132 MPV 9.8 Immature Gran % (Auto) 0.3 Neut % (Auto) 75.6 Lymph % (Auto) 13.6 [place] % (Auto) 8.8 Eos % (Auto) 1.3 Baso % (Auto) 0.4 Neut # (Auto) 5.09 Lymph # (Auto) 0.92 L [place] # (Auto) 0.59 Eos # (Auto) 0.09 Baso # (Auto) 0.03 Immature Gran # (Auto) 0.02 PT 13.0 H INR 1.2 H APTT 30 PTT Ratio 1.1 VBG pH 7.36 VBG pCO2 38 VBG pO2 46 VBG HCO3 22 VBG O2 Saturation 74.6 VBG Base Excess -3.6 Sodium 143 Potassium 3.8 Chloride 112 H Carbon Dioxide 24 Anion Gap 7 BUN 21 Creatinine 1.11 Est Cr Clr Drug Dosing 30.2 eGFR 47.51 BUN/Creatinine Ratio 18.9 Glucose 89 Lactate 1.4 Calcium 8.7 Magnesium 2.1 Total Bilirubin 0.7 AST 26 ALT 20 Alkaline Phosphatase 69 Troponin I High Sens 33.7 H B-Natriuretic Peptide 3385 H Total Protein 6.3 Albumin 4.1 Globulin 2.2 L Albumin/Globulin Ratio 1.9 Urine Color Dark Yellow Urine Appearance Cloudy A Urine pH 6.0 Ur Specific [place] 1.030 Urine Protein 3+ H Urine Glucose (UA) Negative Urine Ketones Trace H Urine Blood 3+ H Urine Nitrite Negative Urine Bilirubin Negative Urine Urobilinogen Negative Ur Leukocyte Esterase 1+ H Urine WBC (Auto) >50 H Urine RBC (Auto) >20 H U Hyaline Cast (Auto) 11-20 H U Epithel Cells (Auto) 11-20 H Urine Bacteria (Auto) 2+ H Hyaline Casts Present A Urine Comment SARS-CoV-2 (PCR) NEGATIVE Influenza Type A (PCR) Negative Influenza Type B (PCR) Negative RSV (RT-PCR) Negative 05/05/25 05/06/25 05/07/25 14:59 05:51 07:33 WBC 6.34 5.13 RBC 3.47 L 3.58 L Hgb 10.7 L 10.8 L Hct 33.4 L 35.0 L MCV 96.3 97.8 MCH 30.8 30.2 MCHC 32.0 30.9 L RDW Std Deviation 49.9 H 50.6 H RDW Coeff of Ally 14.1 14.0 Plt Count 119 L 133 MPV 9.6 10.2 Immature Gran % (Auto) Neut % (Auto) Lymph % (Auto) [place] % (Auto) Eos % (Auto) Baso % (Auto) Neut # (Auto) Lymph # (Auto) [place] # (Auto) Eos # (Auto) Baso # (Auto) Immature Gran # (Auto) PT INR APTT PTT Ratio VBG pH VBG pCO2 VBG pO2 VBG HCO3 VBG O2 Saturation VBG Base Excess Sodium 140 141 Potassium 3.6 3.3 L Chloride 107 102 Carbon Dioxide 25 32 Anion Gap 8 7 BUN 22 20 Creatinine 1.09 1.05 Est Cr Clr Drug Dosing 35.4 36.4 eGFR 48.56 50.79 BUN/Creatinine Ratio 20.2 H 19.0 Glucose 91 109 H Lactate Calcium 8.4 L 8.5 L Magnesium Total Bilirubin AST ALT Alkaline Phosphatase Troponin I High Sens 33.4 H 32.0 H B-Natriuretic Peptide Total Protein Albumin Globulin Albumin/Globulin Ratio Urine Color Urine Appearance Urine pH Ur Specific [place] Urine Protein Urine Glucose (UA) Urine Ketones Urine Blood Urine Nitrite Urine Bilirubin Urine Urobilinogen Ur Leukocyte Esterase Urine WBC (Auto) Urine RBC (Auto) U Hyaline Cast (Auto) U Epithel Cells (Auto) Urine Bacteria (Auto) Hyaline Casts Urine Comment SARS-CoV-2 (PCR) Influenza Type A (PCR) Influenza Type B (PCR) RSV (RT-PCR) 05/08/25 07:00 WBC 5.33 RBC 4.01 L Hgb 12.1 Hct 38.6 MCV 96.3 MCH 30.2 MCHC 31.3 L RDW Std Deviation 48.8 H RDW Coeff of Ally 13.8 Plt Count 137 MPV 9.8 Immature Gran % (Auto) Neut % (Auto) Lymph % (Auto) [place] % (Auto) Eos % (Auto) Baso % (Auto) Neut # (Auto) Lymph # (Auto) [place] # (Auto) Eos # (Auto) Baso # (Auto) Immature Gran # (Auto) PT INR APTT PTT Ratio VBG pH VBG pCO2 VBG pO2 VBG HCO3 VBG O2 Saturation VBG Base Excess Sodium 141 Potassium 3.6 Chloride 99 Carbon Dioxide 34 H Anion Gap 8 BUN 20 Creatinine 1.11 Est Cr Clr Drug Dosing 33.9 eGFR 47.51 BUN/Creatinine Ratio 18.0 Glucose 88 Lactate Calcium 8.6 Magnesium 1.6 L Total Bilirubin AST ALT Alkaline Phosphatase Troponin I High Sens B-Natriuretic Peptide Total Protein Albumin Globulin Albumin/Globulin Ratio Urine Color Urine Appearance Urine pH Ur Specific [place] Urine Protein Urine Glucose (UA) Urine Ketones Urine Blood Urine Nitrite Urine Bilirubin Urine Urobilinogen Ur Leukocyte Esterase Urine WBC (Auto) Urine RBC (Auto) U Hyaline Cast (Auto) U Epithel Cells (Auto) Urine Bacteria (Auto) Hyaline Casts Urine Comment SARS-CoV-2 (PCR) Influenza Type A (PCR) Influenza Type B (PCR) RSV (RT-PCR) PG Care Time/CCT Total # of Minutes Spent Total Time Spent with Patient: Total time spent is greater than 50% in coordination of care (as documented) at patient's floor/unit and/or counseling patient: Coding Level of Care Code 95289 SUB INP/OBS CARE 35MIN Diagnoses CHF exacerbation I50.9 Volume overload E87.70 Time Spent (min) 35
[2025-05-08] MEDS: FUROSEMIDE INJ 20 MG/2 ML VIAL IV ONE (12:00)
[2025-05-08] MEDS ORDERED: MAG SULFATE 50% 1GM/2ML VIAL IV ONE (18:04)
[2025-05-08] MEDS: MAGNESIUM SULFATE / D5W 1 GM/100 ML BAG IV SCH (18:14)
[2025-05-09 08:20] LABS: Hematocrit (blood only) 39.4 % (37.0-47.0); Hemoglobin 12.2 g/dl (12.0-16.0); Mean Corpuscular Hemoglobin 29.8 pg (25.0-34.0); Mean Corpuscular Volume 96.3 fL (80.0-100.0); Platelet Count 144 K/uL (130-400); RDW Standard Deviation 49.5 fL (36.4-46.3); Red Blood Count 4.09 M/uL (4.20-5.40); White Blood Count 5.28 K/ul (4.8-10.8)
[2025-05-09 08:39] LABS: Anion Gap 7.0 (3-11); Blood Urea Nitrogen 23.0 mg/dl (6-23); Calcium 8.9 mg/dl (8.6-10.3); Carbon Dioxide 33.0 mmol/L (21-32); Chloride 99.0 mmol/L (98-107); Creatinine Clr Calc Pharmacy 29.4 ml/min; Glucose 87.0 mg/dl (70-99(Fasting)); Magnesium 2.4 mg/dl (1.7-2.4); Potassium 4.2 mmol/L (3.5-5.1); Sodium 139.0 mmol/L (136-145)
[2025-05-09 08:42] VITALS: RESP 18; TEMP 98.1
[2025-05-09 11:24] VITALS: BP 108/67; PULSE 88; O2SAT 94
--- NOTE | 2025-05-09 13:01 | Discharge Summary ---
Discharge Summary Date of Service May 09, 2025 Principal Dx & Hospital Course #1 = Principal Diagnosis (1) CHF exacerbation: Lelia Sanchez is a 89 yo woman with PMH of PVD, CKD, recurrent UTI, hypertension, GERD she's live in [facility] and been having shortness of breath, congestion. initially thought to be bronchitis. however, did not improved with oral antibiotics, and CXR concern for volume overload, s she's presented to our hospital with CHF exacerbation, pulmonary edema she also has significant leg edema she was provided with lasix BID; she was empirically covered with ceftriaxone for bronchitis and UTI her breathing continue to improved she will be dc to [facility] on 05/09/2025 given she has borderline hypotension on 05/09/2025 she can skipped her lasix on 05/10/2025. on 05/11/2025, [facility] will need to monitor for her blood pressure. if her blood pressure is less than 110, [facility] can hold lisinopril and administer low dose 20mg lasix she will need referral to cardiology for establishment of care. she was provided with empiric coverage for Augmentin and doxycycline BID for 8 days patient will benefit from speech evaluation she was seen by PT, recommended usage of rolling walker and required continue evaluation by [facility] PT (2) Volume overload: Plan Lelia Sanchez is 89 yo woman with PMH of CKD, PVD(on plavix), HTN, recurrent UTI, mood disorder, GERD Patient reside in [facility] and been having several days of shortness of breath congestion and limited improvement with oral antibiotics she went to urgent care on Thursday (05/05) and referred to ED for evaluation. of note, she's been drinking multiple bowl of soap in the [facility] she was found to has volume ovrerload, CHF exacerbation, physical exam show leg edema, crackles at lung base started on lsaix IV for volume overload. her echo found EF of 45-50%, mitral regurgitation and large pleural effusion acute CHF exacerbation. leg edema hypertension CKD recurrent UTI GERD mood disorder memory impairment acute CHF exacerbation echo found EF of 45-50%, mitral regurgitation leg edeam resolved on 05/08 hold lasix for 05/10/2025 (given borderline soft blood pressure) low salt diet, nutrition for evaluation discussed likely underlying CAD c/w home med of simvastatin 40mg qHS large pleural effusion that was found on echo her CXR on 05/07 show small effusion low dose lasix oral 20mg, hold lasix if blood pressure is below 110 troponin elevation; likely demand ischemia hypertension- lisinopril 2.5mg recurrent UTI she's on methenamine 1g BID for urge incontinence she's on D-mannose oral capsule for UTI prevention memory impairment-donepezil 5mg daiy GERD-nexium 40mg PVD-plavix 75mg daily mood disorder, sertraline 150mg daily for depression hypothyroidism- synthyroid 50mcg constipation, she's PRN miralax and milk of magnesia prophylaxis, she'son amoxicllin 500mg 4 tablet prior to dental appointment code status; no code, no CPR, no transfer to ICU Notes For Next Care Provider recheck blood pressure follow up with cardiology monitor for hypotension while on lasix. dysphagia evaluation Admission HPI Per Admitting Provider Leliajaciel Sanchez is a 89 yo woman with PMH of CKD, hypertension, GERD, mood disorder, recurrent UTI. 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 she's been having shortness of breath an coughin for 7-10 days, she's was reportedly take antibiotics but limited improvement. she's was referred by urgent care to come to our ED for evaluation, her CXR found volume overload her lab found troponin elevation; on interview at 2:25pm, shes' denied any chest pain she is on room air; and her lung exam show diffuse crackles at the lung base and found rales she's has leg edema and mild JVD. started on lasix and ceftriaxone by our ED colleague she's will be admitte for newly found CHF, patient and her son confirmed that she is no intubation, no CPR her daughter in law work as a RN no abdominal pain, no dizziness. last week. was having diarrhea episode Discharge Exam VITALS: Reviewed. WEIGHT/BMI reviewed. GEN: Healthy appearing, well-developed, NAD. Neuro: hard of hearing, following command -Head: NC/AT; -Mouth and throat: MMM. Normal gums, mucosa, palate,. Good dentition. NECK: Supple, with no masses. CV: RRR, no m/r/g. LUNGS: CTAB, no w/r/c. no crackles at lung base ABD: Soft, NT/ND, NBS, no masses or organomegaly. . MSK: No deformities, Normal gait. EXT: edema resolved NEURO: Ambulating with rolling walker; AAox3. Discharge Plan Discharge Items Patient Disposition: Transfer Half-Way Fac Reason For Visit: CHF, "BRONCHITIS" Discharge Diagnosis: CHF exacerbation, acute volume overload Condition on Discharge: Fair Activity: Per Instructions section Lifting: Gradually increase as tolerated Non-emergency contact: Primary Care Provider Call non-emergency contact if: you have any medication questions Follow-up/Referrals: Otilio Lo CRNP [Primary Care Provider] - Diet: Low Sodium (2gm) Addtl Attending Provider Instructions: low salt diet if your blood pressure is below 110, hold lisinopril or lasix recheck blood pressure in 2-3 hours check your weight on standing scale daily recheck your creatinine function, potassium and sodium level in 48 hours Pending Studies at Discharge: Yes Stand-Alone Forms: My [facility] Skilled Items Patient informed of condition?: Yes DNR: Yes Discharge Level of Care: Skilled Communicable Disease: No Discharge Prognosis: Improving Lines: None Urinary Catheter: No Medications and DC Order Prescriptions: New furosemide [Lasix] 40 mg tablet 20 mg PO DAILY 30 Days Qty: 15 1RF amoxicillin-pot clavulanate [Augmentin] 500-125 mg tablet 1 tab PO BID 8 Days Qty: 16 0RF doxycycline hyclate 100 mg tablet 100 mg PO BID 8 Days Qty: 16 0RF Continued diphenhydramine HCl [Banophen] 25 mg tablet 25 mg PO ONCE PRN AZO D-Mannose 500 mg capsule PO diclofenac sodium [Arthritis Pain (diclofenac)] 1 % gel 2 g topical QID Rx Instructions: apply to single elbow, wrist or hand; for hand includes palm/fingers/back of hand donepezil 5 mg tablet 5 mg PO DAILY lidocaine 4 % adhesive patch,medicated 1 patch topical DAILY PRN magnesium oxide 400 mg magnesium capsule 400 mg PO BID methenamine hippurate 1 gram tablet PO BID hydrocortisone 1 % cream topical BID PRN amoxicillin 500 mg capsule 2,000 mg PO ONCE PRN Rx Instructions: 60 mins prior to dental appt. magnesium hydroxide [Milk of Magnesia] 400 mg/5 mL suspension 30 ml PO DAILY PRN Premarin 0.625 mg/gram cream 0.3125 mg vaginal Q OTHER DAY Rx Instructions: 2-4 x per week. Moira-Bartolo Rx 1-60-300 mg-mg-mcg tablet 1 tab PO DAILY sertraline 100 mg tablet PO DAILY Rx Instructions: take in addition to the 50mg to equal 150mg tramadol 50 mg tablet 50 mg PO BID Vitron-C 65 mg iron- 125 mg tablet,delayed release (DR/EC) 1 tab PO BID simvastatin [Zocor] 40 mg tablet 40 mg PO QPM polyethylene glycol 3350 [ClearLax] 17 gram Powder In Packet 17 g PO DAILY PRN (Reason: Constipation) sennosides-docusate sodium [Senna-S] 8.6-50 mg Tablet 1 tab-cap PO DAILY clopidogrel [Plavix] 75 mg Tablet 75 mg PO DAILY acetaminophen 500 mg Tablet 1,000 mg PO BID esomeprazole magnesium [Nexium] 40 mg Capsule,Delayed Release(Dr/Ec) 40 mg PO DAILY aspirin 81 mg Tablet 81 mg PO DAILY lisinopril 2.5 mg Tablet 2.5 mg PO PM Qty: 30 0RF levothyroxine 50 mcg tablet 50 mcg PO DAILY sertraline 50 mg tablet 50 mg PO DAILY tramadol 50 mg tablet 100 mg PO Q12H PRN (Reason: Pain) Discharge Orders: Discharge Order (Routine); Ordered 05/09/25 Ordered By: Darlene Saleem/Other Patient Handouts: Heart Failure Make Changes Diet, Heart Failure Dc, ED Low-Salt Diet Admission Data Admit Date/Time: 05/05/25 14:50 Attending Provider: Darlene Stevenson Admit Provider: Darlene Stevenson Primary Care Provider: Otilio Lo Other Providers: [place] [facility] Other Interventions: Discharge Summary Assessment (RN) Last Done: 05/09/25 11:14 Hospital Stay Data Consultations 05/05/25 14:21 ED Decision to Admit Stat Pending Results Patient Have Any Pending Studies at Discharge: Yes Discharge Instructions Given to Patient (Per Discharging Provider) low salt diet if your blood pressure is below 110, hold lisinopril or lasix recheck blood pressure in 2-3 hours check your weight on standing scale daily recheck your creatinine function, potassium and sodium level in 48 hours Total Time Total Time Spent Total Time Spent (In Minutes): 35 Coding Level of Care Code 60526 INP/OBS DISCH >30 MIN Diagnoses CHF exacerbation I50.9 Volume overload E87.70 Time Spent (min) 35
--- NOTE | 2025-05-11 13:00 | Coding Query ---
CONGESTIVE HEART FAILURE To Promote full compliance with coding requirements relating to patient care, physician participation is requested in all cases of ampoule inspector uncertainty. Please assist us with the following questions. A diagnosis of Congestive Heart Failure is documented in the patient's medical record. To accurately code this diagnosis and to compare patient severity, we ask that you specify the type of heart failure by placing an X within the parenthesis (x). 05/05 Echo SYSTOLIC HEART FAILURE (X ) Acute ( ) Chronic ( ) Acute on Chronic ( ) Rheumatic ( ) Unknown DIASTOLIC HEART FAILURE ( ) Acute ( ) Chronic ( ) Acute on Chronic ( ) Rheumatic ( ) Unknown COMBINED SYSTOLIC AND DIASTOLIC HEART FAILURE ( ) Acute ( ) Chronic ( ) Acute on Chronic ( ) Rheumatic ( ) Unknown Was the CHF Present On Admission? Please check the appropriate box: (X ) Present on Admission ( ) Not Present On Admission ( ) Clinically undetermined Thank you Dylan GODOY
== END 2025-05-09 14:45 | disposition home or self-care (01) | DRG 291 ==
LOC: ED 12:09 → 2N 14:50

== ENCOUNTER 2025-07-25 14:33 | Observation (INO) ==
[2025-07-25] MEDS ORDERED: SODIUM CHLORIDE 0.9% 100 ML IV PRN ×3 (14:57→23:37)
--- NOTE | 2025-07-25 15:02 | Emergency Department Note ---
Impression & Plan Symptomatic anemia, CHF (congestive heart failure), Recurrent falls ED Provider Note NAME: EULALIA DENNIS AGE: 89 SEX: F : 1935 ARRIVES VIA: Ambulance INFORMANT: Patient, family, EMS ED PROVIDER(S): Gil Burnette DO CHIEF COMPLAINT: low Hgb HPI: This was not prehospital trauma/injury alert by EMS. This is a 89-year-old female with the PMHx of hypertension, CHF, peripheral vascular disease, GERD, hypothyroidism, and chronic anticoagulation with apixaban for DVT presenting to [facility] for further evaluation of low hemoglobin. Patient is accompanied by EMS and family who provide additional history. The patient is on anticoagulation with apixaban. They deny head strike or LOC.The patient originally presented for abnormal outpatient labs. She was found to be acutely anemic. Patient reports some bright red blood per rectum. Patient reports that she has been falling multiple times a day. There is multiple areas of ecchymoses of various stages of healing. Given this plus anemia, I do feel is reasonable to obtain trauma workup. She is reporting significant weakness and fatigue. They deny neck or back pain. They deny fever or chills. No cough or congestion. Denies chest pain or palpitations. No shortness of breath. They deny abdominal pain, nausea and vomiting. No urinary complaints. No recent changes in bowel movements. Patient denies recent changes in medications or OTC supplements. Patient offers no other complaints, today. ADDITIONAL HISTORY OBTAINED: Per HPI Chronic Medical/Social Conditions Affecting Care: Per HPI PAST MEDICAL HISTORY: See Below PAST SURGICAL HISTORY: See Below FAMILY HISTORY: See Below SOCIAL HISTORY: See Below HOME MEDICATIONS: See Below ALLERGIES: See Below VITALS: See Below PHYSICAL EXAMINATION: Primary Survey Airway: Intact Breathing: Normal, breath sounds equal bilaterally Circulation: Skin warm, distal pulses 2+, capillary refill less than 2 seconds Disability Pupils: Equal and reactive to light, 3mm, brisk GCS: 15, E = 4, V=5, M= 6 Motor Function: Moves all extremities. Sensory: No deficits Secondary Survey GEN: Well developed and well-nourished HENT: Head: No external signs of trauma. No obvious contusions, abrasions, or laceration. No raccoon eyes or goodwin sign. Mouth/Throat: No blood within the oral cavity. No malocclusion. Eyes: EOMI. Pupils are 3 mm, round and reactive bilaterally. Conjunctival pallor. Ears: TMs are intact bilaterally. No hematomas. Nose: No nasal septal hematoma. No gross deformity. Neck: No midline C-spine tenderness. No step-offs. Cardiovascular: RRR. Pulses present in all 4 extremities. Pulmonary/Chest: BS equal bilaterally. No tenderness or ecchymosis. Abdomen: No tenderness or ecchymosis. Musculoskeletal: Pelvis: No instability. Back: No midline tenderness. No step-offs or deformities. Extremities: No gross deformities. No TTP. Skin: No laceration. areas of ecchymoses and abrasions over the lower extremities as well as the left arm. She is pale Neuro: No focal neurological deficits. GCS as above. Psych: Normal mood and affect. MEDICAL DECISION MAKING: Vitals: The patient is afebrile and HDS. An order was placed for continuous cardiorespiratory monitoring. I reviewed and this shows a rate of 70-80s with regular rhythm. EKG: EKG independently interpreted by me reveals normal sinus rhythm at a ventricular rate of 78 bpm. There is a first-degree AV block as well as a left bundle branch block. The left bundle branch block is not new. Does not meet Sgarbossa criteria. No significant ST segment changes to suggest STEMI. Intervals otherwise within normal limits. Differential diagnoses include but not limited to multi-system trauma, ICH, skull fracture, spine / spinal cord injury, fracture, dislocation, traumatic abdominal injuries, solid / visceral organ injuries, MSK sprain / strain, contusion, whiplash, concussion In summary, this is a 89yoF who presented as abnormal outpatient labs including low hemoglobin but made an injury alert given low hemoglobin and frequent falls with evidence of soft tissue trauma. Patient was brought into the emergency/resuscitation room by EMS. Full ATLS protocol was initiated under direction of the ED team. The history was concerning for multi-system trauma. Airway intact and self maintained, breath sounds bilateral and equal along with normal effort, circulation intact with pp in 4 extremities, GCS 15 with normal speech and sensorium and ALICIA. Full physical examination as above. History and secondary survey as above. Labs drawn. eFAST deferred for WBCT as the patient has no abdominal/chest complaints, evidence of trauma in these areas or hemodynamic instability. Collar deferred by the patient. Pt was not given tetanus. Initial/stabilizing treatments include close observation and order for transfusion given the patient's known low hemoglobin and appearance with pale skin and conjunctival pallor as well as symptomatic anemia. Imaging performed and reviewed as above. I-STAT chemistries obtained and unremarkable besides some kidney dysfunction as well as acute anemia with a hemoglobin of 6.1. Patient was taken to the CT suite for WBCT. Labs were independently interpreted by me as acute anemia from baseline. Worsening kidney function. No significant electrolyte derangements or changes in LFTs. Chest x-ray showed no evidence of a pneumothorax or displaced rib fracture. She does have cardiomegaly and interstitial edema as independently interpreted by me. CTH independently interpreted by me reveals no evidence of ICH. No significant hydrocephalus. No major skull fractures. CTH does not demonstrate findings to suggest an etiology of the patient's symptoms or presentation, today. CT C spine was independently interpreted by me as negative for acute fracture or dislocation. CT chest abdomen and pelvis revealed chronic abnormalities. I do note that the patient seems to have thickening of the rectum as well as sigmoid colon. I question if this could be the source of the patient's ongoing lower GI bleeding. Numerous external hemorrhoids present without bright red blood per rectum. Patient was managed with transfusion. No traumatic injuries were identified at this visit. Will give IV Lasix with the patient's transfusions as she already appears hypervolemic in the setting of CHF. Based on the patient's age, code existing illnesses, exam and lab findings, the decision to treat as an inpatient was made. The patient's trauma evaluation with whole-body CT scans is negative for traumatic injuries. Patient does have presence of bilateral pleural effusions and acute anemia. I suspect gastrointestinal system could be the source. Patient will require diuresis as well as packed red blood cells. Patient and family are very reasonable. She is DNR/DNI. Does not want anything invasive. I suspect there is some distal colonic/rectal thickening that rads failed to component on. I think probably malignancy. She does not want EGD/colonoscopy, so pretty much just slowly transfusing her in the setting of her CHF. They received the medications, treatments, interventions indicated above and their condition remained guarded. I discussed my findings with the patient and their family and they understand and agree with the treatment plan. All patient / family questions were answered to their satisfaction. Consults/Care Managements Discussions: Per MDM ER treatment provided: See above Procedures: None Critical Care: I have personally spent 40 minutes of critical care time in direct management of this patient. This includes bedside care, interpretation of diagnostic studies, and testing, discussion with consultants, patient, and family members, and other require inpatient management activities. This 40 minutes is in excess of all separately billable procedures. The chart was completed utilizing Guest [employer] Guest Speech voice recognition software. Grammatical errors, random word insertions, pronoun errors, and incomplete sentences are an occasional consequence of this system due to software limitations, ambient noise, and hardware issues. Any formal questions or concerns about the content, text, or information contained within the body of this dictation should be directly addressed to the physician for clarification. Past Med/Surg History Problem List (Updated 07/26/25 @ 02:37 by Gil Burnette DO) Recurrent falls (Acute) CHF (congestive heart failure) (Acute) Symptomatic anemia (Acute) Anemia Renal cyst (Chronic) Postmenopause atrophic vaginitis (Chronic) Syncope Abdominal pain UTI (urinary tract infection) GERD (gastroesophageal reflux disease) Hypothyroidism Peripheral vascular disease HTN (hypertension) Fall (Acute) Laceration of scalp (Acute) Hematoma of scalp (Acute) Dizziness (Acute) Syncope, vasovagal (Acute) Medical History Failure of outpatient treatment Acute UTI CHF (congestive heart failure) SOB (shortness of breath) Volume overload CHF exacerbation Recurrent UTI Social History Smoking Status: Former smoker Tobacco Type: Cigarettes Second Hand Exposure: No; Do You Dip or Chew Tobacco: No; Hx Alcohol Use: No Hx Substance Use: No Preferred Language: Surinamese Communication Ability: Effective Jira Administrator Required: No Beliefs That Will Affect Care: None Current Living Situation: Personal Care Facility Feels Safe at Home: Yes Assistive Devices: Cane Allergies Allergies Allergy/AdvReac Type Severity Reaction Status Date / Time ciprofloxacin Allergy Unknown Unknown Verified 07/25/25 18:19 clindamycin Allergy Unknown Unknown Verified 07/25/25 18:19 fentanyl Allergy Unknown Unknown Verified 07/25/25 18:19 sulfamethoxazole Allergy Unknown Unknown Verified 07/25/25 18:19 [From ] trimethoprim [From ] Allergy Unknown Unknown Verified 07/25/25 18:19 Home Meds Home Medications Medication Instructions Recorded Confirmed acetaminophen 500 mg tablet 1,000 mg PO TID 10/01/23 07/25/25 aspirin 81 mg tablet 81 mg PO DAILY 10/01/23 07/25/25 clopidogrel 75 mg tablet (Plavix) 75 mg PO DAILY 10/01/23 07/25/25 esomeprazole magnesium 40 mg 40 mg PO DAILY 10/01/23 07/25/25 capsule,delayed release (Nexium) polyethylene glycol 3350 17 gram 17 g PO DAILY PRN Constipation 10/01/23 07/25/25 oral powder packet (ClearLax) sennosides 8.6 mg-docusate sodium 1 tab PO DAILY 10/01/23 07/25/25 50 mg tablet (Senna-S) d-mannose 500 mg capsule (AZO 1,000 mg PO QAM for UTI prevention 12/12/24 07/25/25 D-Mannose) donepezil 5 mg tablet 5 mg PO DAILY 12/12/24 07/25/25 levothyroxine 50 mcg tablet 50 mcg PO DAILY 12/12/24 07/25/25 lidocaine 4 % topical patch 1 patch topical DAILY PRN Pain 12/12/24 07/25/25 magnesium oxide 400 mg PO BID 12/12/24 07/25/25 methenamine hippurate 1 gram tablet 1 g PO BID 12/12/24 07/25/25 amoxicillin 500 mg capsule 2,000 mg PO ONCE PRN dental 04/18/25 07/25/25 appointment conjugated estrogens 0.625 mg/gram 0.3125 mg vaginal 3XWK 04/18/25 07/25/25 vaginal cream (Premarin) hydrocortisone 1 % topical cream 1 applic topical BID PRN for rash 04/18/25 07/25/25 iron,carbonyl 65 mg-vitamin C 125 1 tab PO BID 04/18/25 07/25/25 mg tablet,delayed release (Vitron-C) sertraline 100 mg tablet 100 mg PO DAILY 04/18/25 07/25/25 sertraline 50 mg tablet 50 mg PO DAILY 04/18/25 07/25/25 simvastatin 40 mg tablet (Zocor) 40 mg PO QPM 04/18/25 07/25/25 tramadol 50 mg tablet 50 mg PO BID 04/18/25 07/25/25 tramadol 50 mg tablet 100 mg PO QAM PRN Pain 04/18/25 07/25/25 vitamin B comp no.3-folic acid 1 1 tab PO DAILY 04/18/25 07/25/25 mg-vit C 60 mg-biotin 300 mcg tablet (Moira-Bartolo Rx) apixaban 5 mg tablet (Eliquis) 5 mg PO BID 07/25/25 07/25/25 baclofen 10 mg tablet 10 mg PO QAM muscle pain 07/25/25 07/25/25 dextromethorphan-guaifenesin 10 10 ml PO Q4H PRN Cough 07/25/25 07/25/25 mg-200 mg/5 mL oral liquid lidocaine 4 % topical ointment 1 ea topical TID PRN left knee pain 07/25/25 07/25/25 magnesium hydroxide 400 mg/5 mL 30 ml PO DAILY PRN Constipation 07/25/25 07/25/25 oral suspension (Milk of Magnesia) ondansetron 4 mg disintegrating 4 mg PO Q12H PRN Nausea And 07/25/25 07/25/25 tablet Vomiting potassium chloride 20 mEq 20 meq PO DAILY 07/25/25 07/25/25 tablet,extended release(part/cryst) Previous Rx's Medication Instructions Recorded lisinopril 2.5 mg tablet 2.5 mg PO PM #30 tabs 10/07/23 furosemide 40 mg tablet (Lasix) 20 mg (1/2 x 40 mg) PO DAILY 30 05/09/25 days #15 tabs Results & Data (ED) Vital Signs Vital Signs - 24 hr 07/25/25 14:19 07/25/25 14:50 07/25/25 15:00 Temperature 36.5 C Temperature Source Oral Pulse Rate 79 79 Pulse Rate [Apical] 78 Pulse Rhythm Regular Regular Pulse Rhythm [Apical] Regular Pulse Strength Normal Pulse Strength [Apical] Normal Respiratory Rate 12 14 16 Respiratory Effort / Characteristics Non-Labored Spontaneous Non-Labored Spontaneous Respiratory Depth Normal Normal Respiratory Pattern Regular Regular Blood Pressure 149/65 H Blood Pressure [Right Arm] 154/68 H Blood Pressure Mean 93 Blood Pressure Mean [Right Arm] 96 Blood Pressure Position Lying Blood Pressure Position [Right Arm] Semi-fowlers Pulse Oximetry 98 98 95 Oxygen Delivery Method Room Air Room Air Room Air Oxygen Flow Rate Sepsis Recent Fever Within 48 Hours No Sepsis New/Unexplained Change in Mental Status No Sepsis Action Taken by Nursing No Action Required 07/25/25 15:33 07/25/25 16:00 07/25/25 17:00 Temperature Temperature Source Pulse Rate 79 Pulse Rate [Apical] 78 80 Pulse Rhythm Pulse Rhythm [Apical] Regular Regular Pulse Strength Pulse Strength [Apical] Normal Normal Respiratory Rate 12 16 Respiratory Effort / Characteristics Non-Labored Spontaneous Non-Labored Spontaneous Respiratory Depth Normal Normal Respiratory Pattern Regular Regular Blood Pressure Blood Pressure [Right Arm] 131/64 135/74 Blood Pressure Mean Blood Pressure Mean [Right Arm] 86 94 Blood Pressure Position Blood Pressure Position [Right Arm] Semi-fowlers Semi-fowlers Pulse Oximetry 92 94 Oxygen Delivery Method Room Air Room Air Oxygen Flow Rate Sepsis Recent Fever Within 48 Hours Sepsis New/Unexplained Change in Mental Status Sepsis Action Taken by Nursing 07/25/25 18:00 07/25/25 18:05 07/25/25 18:19 Temperature 36.7 C 36.5 C Temperature Source Oral Oral Pulse Rate 78 76 Pulse Rate [Apical] 78 Pulse Rhythm Regular Pulse Rhythm [Apical] Regular Pulse Strength Normal Pulse Strength [Apical] Normal Respiratory Rate 14 12 14 Respiratory Effort / Characteristics Non-Labored Spontaneous Respiratory Depth Normal Respiratory Pattern Regular Blood Pressure 145/55 H 141/57 H Blood Pressure [Right Arm] 133/51 L Blood Pressure Mean 85 85 Blood Pressure Mean [Right Arm] 78 Blood Pressure Position Lying Blood Pressure Position [Right Arm] Semi-fowlers Pulse Oximetry 93 92 94 Oxygen Delivery Method Room Air Oxygen Flow Rate 0 Sepsis Recent Fever Within 48 Hours Sepsis New/Unexplained Change in Mental Status Sepsis Action Taken by Nursing Laboratory Data 07/25/25 23:10 07/25/25 14:55 Lab Results 07/25/25 07/25/25 07/25/25 Range/Units 14:55 14:59 16:23 WBC 6.53 (4.8-10.8) K/ul RBC 1.76 L (4.20-5.40) M/uL Hgb 5.2 L* (12.0-16.0) g/dl POC Hgb 6.1 L* (12.0-16.0) g/dl Hct 18.1 L* (37.0-47.0) % POC Hct 18 L* (37-47) % MCV 102.8 H (80.0-100.0) fL MCH 29.5 (25.0-34.0) pg MCHC 28.7 L (32.0-36.0) g/dL RDW Std Deviation 58.3 H (36.4-46.3) fL RDW Coeff of Ally 15.5 H (11.5-14.5) % Plt Count 226 (130-400) K/uL MPV 9.7 (9.4-12.4) fL Immature Gran % (Auto) 0.8 % Neut % (Auto) 75.8 % Lymph % (Auto) 14.7 % Montague % (Auto) 8.4 % Eos % (Auto) 0.3 % Baso % (Auto) 0.0 % Neut # (Auto) 4.95 (1.40-6.50) K/uL Lymph # (Auto) 0.96 L (1.20-3.40) K/uL Montague # (Auto) 0.55 (0.11-0.59) K/uL Eos # (Auto) 0.02 (0.00-0.50) K/uL Baso # (Auto) 0.00 (0.00-0.20) K/uL Immature Gran # (Auto) 0.05 (0.01-0.20) K/uL Absolute Nucleated RBC 0.04 (0.00-0.12) K/uL Nucleated RBC % (auto) 0.6 % Polychromasia 2+ Tear Drop Cells 1+ PT 15.5 H (9.0-12.0) Seconds INR 1.5 H (0.9-1.1) APTT 32 H (21-31) Seconds PTT Ratio 1.2 POC Sodium 140 (135-144) mmol/L Sodium 140 (136-145) mmol/L POC Potassium 3.5 (3.3-5.0) mmol/L Potassium 3.6 (3.5-5.1) mmol/L POC Chloride 103 (101-112) mmol/L Chloride 104 (98-107) mmol/L Carbon Dioxide 25 (21-32) mmol/L POC Total CO2 23 L (24-31) mmol/L Anion Gap 11 (3-11) POC Anion Gap 18.0 (16-25) mmol/L POC BUN 25 H (7-18) mg/dl BUN 27 H (6-23) mg/dl Creatinine 1.30 H (0.6-1.2) mg/dl POC Creatinine 1.5 H (0.6-1.3) mg/dl Est Cr Clr Drug Dosing 27.7 ml/min eGFR 39.31 BUN/Creatinine Ratio 20.8 H (10-20) Glucose 107 H (70-99(Fasting)) mg/dl POC Glucose (other) 106 H (70-99) mg/dl Lactate 1.9 (0.4-2.0) mmol/L Calcium 8.2 L (8.6-10.3) mg/dl POC Ioniz Calcium Dwayne 1.04 L (1.12-1.32) mmol/l Total Bilirubin 0.7 (0.2-1.0) mg/dl AST 25 (13-39) U/L ALT 13 (7-52) U/L Alkaline Phosphatase 63 (34-104) U/L Total Protein 6.1 (6.0-8.3) gm/dl Albumin 3.5 (3.4-5.0) gm/dl Globulin 2.6 (2.5-4.0) gm/dl Albumin/Globulin Ratio 1.3 (0.9-2) Lipase 27 (11-82) U/L Blood Type A Positive Blood Type Recheck A Positive Antibody Screen NEGATIVE Crossmatch See Detail Administered Medications Acetaminophen (Acetaminophen 500 Mg Tab) 1,000 mg PO BID FADUMO Stop: 08/24/25 21:53 Last Admin: 07/25/25 23:12 Dose: 1,000 mg Documented By: luis Methenamine Hippurate (Methenamine Hippurate 1 Gm Tab) 1 gm PO BID FADUMO Stop: 07/30/25 21:53 Last Admin: 07/25/25 23:12 Dose: 1 gm Documented By: luis Pantoprazole Sodium (Pantoprazole 40 Mg Tab) 40 mg PO BID FADUMO Stop: 08/24/25 21:53 Last Admin: 07/25/25 23:12 Dose: 40 mg Documented By: luis Simvastatin (Simvastatin 40 Mg Tab) 40 mg PO QPM FADUMO Stop: 08/24/25 21:53 Last Admin: 07/25/25 23:12 Dose: 40 mg Documented By: luis Discontinued Medications Furosemide (Furosemide 40 Mg/4 Ml Vial) 40 mg IV ONE ONE Stop: 07/25/25 16:29 Last Admin: 07/25/25 16:49 Dose: 40 mg Documented By: JOY Pantoprazole Sodium (Protonix) 40 mg in 10 mls @ 5 mls/min IV NOW ONE Stop: 07/25/25 16:09 Last Admin: 07/25/25 16:49 Dose: 5 mls/min Documented By: JOY Famotidine (Pepcid 20mg Iv Push) 20 mg in 5 mls @ 2.5 mls/min IV NOW STA Stop: 07/25/25 21:55 Last Admin: 07/25/25 23:13 Dose: 2.5 mls/min Documented By: luis Ioversol (Optiray 320 100ml) 90 ml IV ONCE ONE Stop: 07/25/25 16:06 Last Admin: 07/25/25 16:06 Dose: 90 ml Documented By: KADEEM Imaging Data Radiologist's Impression: Abdomen/Pelvis CT 07/25/25 14:41 Technique: Axial computed tomography images were obtained of the abdomen and pelvis after the administration of intravenous contrast. Comparison is made to the prior CT dated 10/01/2023. Findings: The liver is overall of normal size, attenuation, and contour with no sign of cirrhosis or significant fatty infiltration. There is suspected mild hepatic venous congestion. No definite liver mass lesion is seen. The portal vein is patent. The gallbladder has been removed. There is mild bile duct dilatation that is likely due to the postcholecystectomy state. The spleen is of normal size. No focal splenic lesion is evident. The pancreas appears normal with no sign of acute or chronic pancreatitis and no mass lesion noted. The pancreatic duct is of normal caliber. The adrenal glands appear unremarkable. No definite renal or proximal ureteral calculi are seen on this contrast-enhanced study. There is no hydronephrosis or perinephric stranding. No renal mass lesion is identified. There is mild bilateral renal cortical atrophy. There are multiple small bilateral renal cysts, measuring up to 7 mm The aorta is of normal caliber. There is multifocal atherosclerotic plaque. No abdominal adenopathy is seen. The stomach appears normal. There is no sign of small bowel obstruction. There is diverticulosis without definite diverticulitis. There are surgical sutures of the sigmoid colon. No free intraperitoneal fluid or air is identified. No distal ureteral or bladder calculi are seen. No bladder mass lesion is evident. The iliac arteries are of normal caliber. There is a patent stent within the left common iliac artery. No pelvic adenopathy is noted. There is an unchanged moderate-sized left paracentral ventral hernia in the left lower quadrant. There is a patent vascular graft between the common femoral arteries. There is an apparent calcified uterine leiomyoma There are new bilateral moderate-sized pleural effusions. There is bilateral lower lobe atelectasis Lumbar degenerative disc disease is seen. There is grade 1 anterolisthesis at L4-5. No fracture is identified. No focal osseous lesion is seen Impression: 1. New bilateral moderate-sized pleural effusions and bilateral lower lobe atelectasis 2. Small bilateral renal cysts 3. Suspected mild hepatic venous congestion 4. Diverticulosis without definite diverticulitis 5. Unchanged ventral hernia containing only fat 6. Uterine leiomyoma ACT 112: Positive. There are findings on this exam that require communication between the performing entity and the patient following Patient Test Result Information Act ([place] ACT 112) guidelines. Electronically signed by Steven Staley 07-25-2025 4:[address] 07/25/25 14:41 Technique: Axial computed tomography images were obtained of the cervical spine without intravenous contrast. Sagittal and coronal reconstructions were obtained Findings: No fracture is identified. There is mild anterolisthesis at C4-5. There is mild retrolisthesis at C3-4, C5-6, and C6-7. No focal osseous lesion is evident. The atlantoaxial articulation appears unremarkable. At C2-3, no disc herniation is identified. There is no spinal stenosis. The neural foramen are patent At C3-4, there is spinal stenosis due to a disc bulge and a central disc protrusion. There is a left greater than right neural foramen narrowing that may affect the left C4 nerve root At C4-5, there is mild spinal stenosis due to a disc bulge and a central disc protrusion. There is right greater than left neural foramen narrowing that may affect the right C5 nerve root At C5-6, there is mild spinal stenosis due to a disc bulge. There is left greater than right neural foramen narrowing that may affect the left C6 nerve root At C6-7, there is mild spinal stenosis due to a disc bulge. There is left greater than right neural foramen narrowing that may affect the left C7 nerve root At C7-T1, there is a disc bulge without spinal stenosis. The neural foramen are patent There are bilateral pleural effusions. No foreign body is seen Impression: 1. No definite cervical spine fracture 2. Mild retrolisthesis at C3-4, C5-6, and C6-7 3. Mild anterolisthesis at C4-5 4. Spinal stenosis from C3-4 through C6-7 5. Left C3-4, right C4-5, and left C5-6 and C6-7 neural foramen narrowing. This may affect the exiting nerve roots Electronically signed by Steven Staley 07-25-2025 7:[address] 07/25/25 14:41 Technique: Axial computed tomography images were obtained of the chest after the administration of intravenous contrast Findings: There are bilateral moderate-sized pleural effusions. There is bilateral lower lobe atelectasis. There is no pneumothorax. There is no sign of pulmonary fibrosis or other diffuse interstitial process. No endobronchial lesion is seen There is no mediastinal, hilar, or axillary adenopathy. The thoracic aorta appears unremarkable with no sign of aneurysm or dissection. There is no pericardial effusion The visualized upper abdomen appears unremarkable. No fracture is seen. No focal osseous lesion is evident Impression: 1. Bilateral moderate sized pleural effusions 2. Bilateral lower lobe atelectasis Electronically signed by Steven Staley 07-25-2025 5:27 PM Chest X-Ray 07/25/25 14:41 XR chest 1V portable CLINICAL HISTORY: Trauma COMPARISON STUDY: 05/07/2025 FINDINGS: Stable cardiomegaly with pulmonary vascular congestion. Stable small bilateral pleural effusions and associated lung base consolidation. No pneumothorax seen. No displaced rib fractures seen. IMPRESSION: CHF with bilateral pleural effusions. ACT 112: Negative or not required by law. Electronically signed by: Bobby Anthony M.D. 07/25/2025 3:[address] 07/25/25 14:41 Technique: Axial computed tomography images were obtained of the brain without intravenous contrast. Findings: There is diffuse cerebral atrophy, within expected limits for the patient's age. Areas of decreased attenuation are seen within the periventricular white matter, likely representing chronic small vessel ischemic disease. There is no definite sign of acute or old infarction. No intracranial hemorrhage is evident. No definite mass lesion is seen on this noncontrast examination. There is no midline shift or other form of herniation. No hydrocephalus is seen. No fracture is identified. The orbits and the visualized paranasal sinuses appear unremarkable. The mastoid air cells appear clear. Impression: 1. 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 Otherwise unremarkable noncontrast CT of the brain Electronically signed by Steven Staley 07-25-2025 4:20 PM Discharge Plan Visit Data Chief Complaint: Abnormal Labs/Diagnostic Testing ED Provider: Gil Burnette Discharge Problem: Symptomatic anemia, CHF (congestive heart failure), Recurrent falls Patient Disposition: Admitted As Inpatient Condition: Serious
[2025-07-25 15:28] LABS: Albumin Level 3.5 gm/dl (3.4-5.0); Anion Gap 11.0 (3-11); Bilirubin,Total 0.7 mg/dl (0.2-1.0); Calcium 8.2 mg/dl (8.6-10.3); Carbon Dioxide 25.0 mmol/L (21-32); Chloride 104.0 mmol/L (98-107); Potassium 3.6 mmol/L (3.5-5.1); Sodium 140.0 mmol/L (136-145)
[2025-07-25 15:34] LABS: Alanine Aminotransferase 13.0 U/L (7-52); Albumin Globulin Ratio 1.3 (0.9-2); Alkaline Phosphatase 63.0 U/L (34-104); Blood Urea Nitrogen 27.0 mg/dl (6-23); Creatinine Clr Calc Pharmacy 27.7 ml/min; Globulin 2.6 gm/dl (2.5-4.0); Glucose 107.0 mg/dl (70-99(Fasting)); Lipase 27.0 U/L (11-82); Total Protein 6.1 gm/dl (6.0-8.3)
[2025-07-25 15:35] LABS: Hematocrit (blood only) 18.1 % (37.0-47.0); Hemoglobin 5.2 g/dl (12.0-16.0); Mean Corpuscular Hemoglobin 29.5 pg (25.0-34.0); Mean Corpuscular Volume 102.8 fL (80.0-100.0); Platelet Count 226 K/uL (130-400); RDW Standard Deviation 58.3 fL (36.4-46.3); Red Blood Count 1.76 M/uL (4.20-5.40); White Blood Count 6.53 K/ul (4.8-10.8)
[2025-07-25 15:44] LABS: INR 1.5 (0.9-1.1); Partial Thromboplastin Time 32 Seconds (21-31); Prothrombin Time 15.5 Seconds (9.0-12.0)
[2025-07-25] MEDS: OPTIRAY 320 100ml IV ONE (16:06)
--- NOTE | 2025-07-25 16:20 | CT Scan Report ---
Technique: Axial computed tomography images were obtained of the brain without intravenous contrast. Findings: There is diffuse cerebral atrophy, within expected limits for the patient's age. Areas of decreased attenuation are seen within the periventricular white matter, likely representing chronic small vessel ischemic disease. There is no definite sign of acute or old infarction. No intracranial hemorrhage is evident. No definite mass lesion is seen on this noncontrast examination. There is no midline shift or other form of herniation. No hydrocephalus is seen. No fracture is identified. The orbits and the visualized paranasal sinuses appear unremarkable. The mastoid air cells appear clear. Impression: 1. 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 Otherwise unremarkable noncontrast CT of the brain Electronically signed by Steven Staley 07-25-2025 4:20 PM
--- NOTE | 2025-07-25 16:27 | CT Scan Report ---
Technique: Axial computed tomography images were obtained of the abdomen and pelvis after the administration of intravenous contrast. Comparison is made to the prior CT dated 10/01/2023. Findings: The liver is overall of normal size, attenuation, and contour with no sign of cirrhosis or significant fatty infiltration. There is suspected mild hepatic venous congestion. No definite liver mass lesion is seen. The portal vein is patent. The gallbladder has been removed. There is mild bile duct dilatation that is likely due to the postcholecystectomy state. The spleen is of normal size. No focal splenic lesion is evident. The pancreas appears normal with no sign of acute or chronic pancreatitis and no mass lesion noted. The pancreatic duct is of normal caliber. The adrenal glands appear unremarkable. No definite renal or proximal ureteral calculi are seen on this contrast-enhanced study. There is no hydronephrosis or perinephric stranding. No renal mass lesion is identified. There is mild bilateral renal cortical atrophy. There are multiple small bilateral renal cysts, measuring up to 7 mm The aorta is of normal caliber. There is multifocal atherosclerotic plaque. No abdominal adenopathy is seen. The stomach appears normal. There is no sign of small bowel obstruction. There is diverticulosis without definite diverticulitis. There are surgical sutures of the sigmoid colon. No free intraperitoneal fluid or air is identified. No distal ureteral or bladder calculi are seen. No bladder mass lesion is evident. The iliac arteries are of normal caliber. There is a patent stent within the left common iliac artery. No pelvic adenopathy is noted. There is an unchanged moderate-sized left paracentral ventral hernia in the left lower quadrant. There is a patent vascular graft between the common femoral arteries. There is an apparent calcified uterine leiomyoma There are new bilateral moderate-sized pleural effusions. There is bilateral lower lobe atelectasis Lumbar degenerative disc disease is seen. There is grade 1 anterolisthesis at L4-5. No fracture is identified. No focal osseous lesion is seen Impression: 1. New bilateral moderate-sized pleural effusions and bilateral lower lobe atelectasis 2. Small bilateral renal cysts 3. Suspected mild hepatic venous congestion 4. Diverticulosis without definite diverticulitis 5. Unchanged ventral hernia containing only fat 6. Uterine leiomyoma ACT 112: Positive. There are findings on this exam that require communication between the performing entity and the patient following Patient Test Result Information Act ([place] ACT 112) guidelines. Electronically signed by Steven Staley 07-25-2025 4:27 PM
[2025-07-25] MEDS: PANTOprazole 40 MG/10 ML SYR IV ONE (16:49)
[2025-07-25] MEDS: FUROSEMIDE 40 MG/4 ML VIAL IV ONE (16:49)
[2025-07-25 17:05] LABS: Immature Granulocytes # (auto) 0.05 K/uL (0.01-0.20); Immature Granulocytes % (auto) 0.8 %; Polychromasia 2+; Tear Drop Cells 1+
--- NOTE | 2025-07-25 17:27 | CT Scan Report ---
Technique: Axial computed tomography images were obtained of the chest after the administration of intravenous contrast Findings: There are bilateral moderate-sized pleural effusions. There is bilateral lower lobe atelectasis. There is no pneumothorax. There is no sign of pulmonary fibrosis or other diffuse interstitial process. No endobronchial lesion is seen There is no mediastinal, hilar, or axillary adenopathy. The thoracic aorta appears unremarkable with no sign of aneurysm or dissection. There is no pericardial effusion The visualized upper abdomen appears unremarkable. No fracture is seen. No focal osseous lesion is evident Impression: 1. Bilateral moderate sized pleural effusions 2. Bilateral lower lobe atelectasis Electronically signed by Steven Staley 07-25-2025 5:27 PM
--- NOTE | 2025-07-25 19:06 | History & Physical Report ---
Date of Service July 25, 2025 Assessment & Plan (1) Anemia: (2) CHF (congestive heart failure): (3) Hypothyroidism: (4) HTN (hypertension): Plan #Profound and symptomatic anemiamost likely due to GI bleeding. Fortunately she is hemodynamically stable. Transfuse blood 1 unit at a timereassessing in between to see if her symptoms have improved and what her hemoglobin isespecially to avoid volume overload given her CHF. Discussed endoscopic workupfamily believes she would decline. Obviously there is not an immediate/urgent need. I suspect lower source, but until I am able to get a better history (she is quite fatigued) will cover with Pepcid x 1 and twice daily Protonix. Hold aspirin and Plavix. I need to determine the indication for which the Eliquis was started, and obviously holding that for now as wellgiven that the risk-benefit at this time would favor holding it. #Chronic systolic CHF (chronic HFrEF)may be a degree of acute decompensationbut this would be almost certainly high-output failure due to the profound anemia. She has been given 40 of Lasix by the ER. Follow with walter is to let us know if she feels at all dyspneic, nursing will let us know if she becomes hypoxic. Additional Lasix if she does. Discussed with overnight coverage in regards to her potential need for Lasix as well as her potential need for further transfusions. #DVT prophylaxispharmacologic obviously contraindicated due to her GI bleeding. Mechanical of dubious benefit and possible risk including falls and skin breakdown. #Hypertensionhold home medications for now to allow more margin of error given her profound anemia #hypothyroidismcontinue Synthroid History of Present Illness Chief Complaint: Weakness Primary Care Provider: Delfina Hurd [facility] patient is a very pleasant 89-year-old femalehistory is mostly obtained from her children because she is excessively fatigued. It sounds like over the last week or so she has been getting more more fatigued, and over the last month has had some degree of melena. She eventually was so profoundly weak that she could not really do anything and she was brought here to the ER for further evaluation where she was found to be profoundly anemic with a hemoglobin of about 5. She has a recent episode of CHFadmitted in April, but seems to been doing well since. Her family relates she was started on Eliquis recentlydiagnosis not entirely clear, and on her current medication list I see aspirin and Plavix. she reportedly would not want endoscopic workupfamily notes they would like to talk to her more about it when if she is less fatigued, but notes that that would have been consistent with longstanding statements she has been making. Allergies Allergy/AdvReac Type Severity Reaction Status Date / Time ciprofloxacin Allergy Unknown Unknown Verified 07/25/25 18:19 clindamycin Allergy Unknown Unknown Verified 07/25/25 18:19 fentanyl Allergy Unknown Unknown Verified 07/25/25 18:19 sulfamethoxazole Allergy Unknown Unknown Verified 07/25/25 18:19 [From ] trimethoprim [From ] Allergy Unknown Unknown Verified 07/25/25 18:19 Home Medications Medication Instructions Recorded Confirmed Type acetaminophen 500 mg tablet 1,000 mg PO TID 10/01/23 07/25/25 History aspirin 81 mg tablet 81 mg PO DAILY 10/01/23 07/25/25 History clopidogrel 75 mg tablet (Plavix) 75 mg PO DAILY 10/01/23 07/25/25 History esomeprazole magnesium 40 mg 40 mg PO DAILY 10/01/23 07/25/25 History capsule,delayed release (Nexium) polyethylene glycol 3350 17 gram 17 g PO DAILY PRN Constipation 10/01/23 07/25/25 History oral powder packet (ClearLax) sennosides 8.6 mg-docusate sodium 1 tab PO DAILY 10/01/23 07/25/25 History 50 mg tablet (Senna-S) lisinopril 2.5 mg tablet 2.5 mg PO PM #30 tabs 10/07/23 07/25/25 Rx d-mannose 500 mg capsule (AZO 1,000 mg PO QAM for UTI prevention 12/12/24 07/25/25 History D-Mannose) donepezil 5 mg tablet 5 mg PO DAILY 12/12/24 07/25/25 History levothyroxine 50 mcg tablet 50 mcg PO DAILY 12/12/24 07/25/25 History lidocaine 4 % topical patch 1 patch topical DAILY PRN Pain 12/12/24 07/25/25 History magnesium oxide 400 mg PO BID 12/12/24 07/25/25 History methenamine hippurate 1 gram tablet 1 g PO BID 12/12/24 07/25/25 History amoxicillin 500 mg capsule 2,000 mg PO ONCE PRN dental 04/18/25 07/25/25 History appointment conjugated estrogens 0.625 mg/gram 0.3125 mg vaginal 3XWK 04/18/25 07/25/25 History vaginal cream (Premarin) hydrocortisone 1 % topical cream 1 applic topical BID PRN for rash 04/18/25 07/25/25 History iron,carbonyl 65 mg-vitamin C 125 1 tab PO BID 04/18/25 07/25/25 History mg tablet,delayed release (Vitron-C) sertraline 100 mg tablet 100 mg PO DAILY 04/18/25 07/25/25 History sertraline 50 mg tablet 50 mg PO DAILY 04/18/25 07/25/25 History simvastatin 40 mg tablet (Zocor) 40 mg PO QPM 04/18/25 07/25/25 History tramadol 50 mg tablet 50 mg PO BID 04/18/25 07/25/25 History tramadol 50 mg tablet 100 mg PO QAM PRN Pain 04/18/25 07/25/25 History vitamin B comp no.3-folic acid 1 1 tab PO DAILY 04/18/25 07/25/25 History mg-vit C 60 mg-biotin 300 mcg tablet (Moira-Bartolo Rx) furosemide 40 mg tablet (Lasix) 20 mg (1/2 x 40 mg) PO DAILY 30 05/09/25 07/25/25 Rx days #15 tabs apixaban 5 mg tablet (Eliquis) 5 mg PO BID 07/25/25 07/25/25 History baclofen 10 mg tablet 10 mg PO QAM muscle pain 07/25/25 07/25/25 History dextromethorphan-guaifenesin 10 10 ml PO Q4H PRN Cough 07/25/25 07/25/25 History mg-200 mg/5 mL oral liquid lidocaine 4 % topical ointment 1 ea topical TID PRN left knee pain 07/25/25 07/25/25 History magnesium hydroxide 400 mg/5 mL 30 ml PO DAILY PRN Constipation 07/25/25 07/25/25 History oral suspension (Milk of Magnesia) ondansetron 4 mg disintegrating 4 mg PO Q12H PRN Nausea And 07/25/25 07/25/25 History tablet Vomiting potassium chloride 20 mEq 20 meq PO DAILY 07/25/25 07/25/25 History tablet,extended release(part/cryst) Past Med/Surg History Problem List (Updated 07/25/25 @ 19:09 by Tre Hoffmann DO) Anemia Renal cyst (Chronic) Postmenopause atrophic vaginitis (Chronic) Syncope Abdominal pain UTI (urinary tract infection) GERD (gastroesophageal reflux disease) Hypothyroidism Peripheral vascular disease HTN (hypertension) Fall (Acute) Laceration of scalp (Acute) Hematoma of scalp (Acute) Dizziness (Acute) Syncope, vasovagal (Acute) Medical History Failure of outpatient treatment Acute UTI CHF (congestive heart failure) SOB (shortness of breath) Volume overload CHF exacerbation Recurrent UTI Social History Smoking Status: Former smoker Tobacco Type: Cigarettes Second Hand Exposure: No; Do You Dip or Chew Tobacco: No; Hx Alcohol Use: No Hx Substance Use: No Preferred Language: [place] Communication Ability: Effective Wad Impregnator Required: No Beliefs That Will Affect Care: None Current Living Situation: Personal Care Facility Feels Safe at Home: Yes Assistive Devices: Cane Review of Systems Review of Systems: All systems reviewed & are unremarkable except as noted in HPI & below Physical Exam Physical Exam: In general she is awake, hard of hearing but seems to be orientedvery fatigued and falls asleep fairly easily, no acute distress. HEENT normocephalic atraumatic mucous membranes moist. Cardio is regular. Lungs are clear without rales rhonchi or wheezes good effort no accessory muscle use. Skin is very pale, no icterus. Neuro without focal deficits or lateralizing signs outside of hard of hearing. Labs and diagnostics noted. Results & Data Results & Data Vital Signs (Past 12 Hours) Vital Signs Temp Pulse Pulse Resp BP BP Pulse Ox 07/25/25 18:53 79 07/25/25 18:35 97.9 F 78 22 140/63 96 07/25/25 18:19 97.7 F 76 14 141/57 H 94 07/25/25 18:05 98.1 F 78 12 145/55 H 92 07/25/25 18:00 78 14 133/51 L 93 07/25/25 17:00 80 16 135/74 94 07/25/25 16:00 78 12 131/64 92 07/25/25 15:33 79 07/25/25 15:00 78 16 154/68 H 95 07/25/25 14:50 79 14 98 07/25/25 14:19 97.7 F 79 12 149/65 H 98 O2 Del Method O2 Flow Rate 07/25/25 18:53 07/25/25 18:35 0 07/25/25 18:19 0 07/25/25 18:05 07/25/25 18:00 Room Air 07/25/25 17:00 Room Air 07/25/25 16:00 Room Air 07/25/25 15:33 07/25/25 15:00 Room Air 07/25/25 14:50 Room Air 07/25/25 14:19 Room Air Code Status & VTE Plan VTE Prophylaxis Plan VTE Prophylaxis will be ordered: No Reason for no VTE drug order: Contraindicated PG Care Time/CCT Total # of Minutes Spent Total Time Spent with Patient: Total time spent is greater than 50% in coordination of care (as documented) at patient's floor/unit and/or counseling patient: Coding Level of Care Code 43884 INT INP/OBS CARE 375MIN Diagnoses Anemia D64.9 CHF (congestive heart failure) I50.9 Heart failure chronicity: acute Heart failure type: unspecified Hypothyroidism E03.9 HTN (hypertension) I10 (2) CHF (congestive heart failure) Heart failure chronicity: acute Heart failure type: unspecified Qualified Code(s): I50.9 - Heart failure, unspecified
--- NOTE | 2025-07-25 19:42 | CT Scan Report ---
Technique: Axial computed tomography images were obtained of the cervical spine without intravenous contrast. Sagittal and coronal reconstructions were obtained Findings: No fracture is identified. There is mild anterolisthesis at C4-5. There is mild retrolisthesis at C3-4, C5-6, and C6-7. No focal osseous lesion is evident. The atlantoaxial articulation appears unremarkable. At C2-3, no disc herniation is identified. There is no spinal stenosis. The neural foramen are patent At C3-4, there is spinal stenosis due to a disc bulge and a central disc protrusion. There is a left greater than right neural foramen narrowing that may affect the left C4 nerve root At C4-5, there is mild spinal stenosis due to a disc bulge and a central disc protrusion. There is right greater than left neural foramen narrowing that may affect the right C5 nerve root At C5-6, there is mild spinal stenosis due to a disc bulge. There is left greater than right neural foramen narrowing that may affect the left C6 nerve root At C6-7, there is mild spinal stenosis due to a disc bulge. There is left greater than right neural foramen narrowing that may affect the left C7 nerve root At C7-T1, there is a disc bulge without spinal stenosis. The neural foramen are patent There are bilateral pleural effusions. No foreign body is seen Impression: 1. No definite cervical spine fracture 2. Mild retrolisthesis at C3-4, C5-6, and C6-7 3. Mild anterolisthesis at C4-5 4. Spinal stenosis from C3-4 through C6-7 5. Left C3-4, right C4-5, and left C5-6 and C6-7 neural foramen narrowing. This may affect the exiting nerve roots Electronically signed by Steven Staley 07-25-2025 7:41 PM
[2025-07-25] MEDS ORDERED: MAGNESIUM HYDROXIDE SUSP 30 ML UDC PO PRN (21:54)
[2025-07-25] MEDS ORDERED: MELATONIN 3 MG TAB PO PRN (21:54)
[2025-07-25] MEDS ORDERED: ALUMINUM/MAGNESIUM SUSP 30 ML UDC PO PRN (21:54)
[2025-07-25] MEDS ORDERED: POLYETHYLENE (MIRALAX) 17 GM PACK PO PRN ×2 (21:54)
[2025-07-25] MEDS: ACETAMINOPHEN 500 MG TAB PO SCH (23:12)
[2025-07-25] MEDS: SIMVASTATIN 40 MG TAB PO SCH (23:12)
[2025-07-25] MEDS: METHENAMINE HIPPURATE 1 GM TAB PO SCH (23:12)
[2025-07-25] MEDS: FAMOTIDINE 20MG IV PUSH 20 MG/5 ML SYR IV STA (23:13)
[2025-07-25 23:33] LABS: Hematocrit (blood only) 21.4 % (37.0-47.0); Hemoglobin 6.2 g/dl (12.0-16.0)
[2025-07-26 05:56] LABS: Hematocrit (blood only) 27.6 % (37.0-47.0); Hemoglobin 8.3 g/dl (12.0-16.0); Immature Granulocytes # (auto) 0.04 K/uL (0.01-0.20); Immature Granulocytes % (auto) 0.6 %; Mean Corpuscular Hemoglobin 29.7 pg (25.0-34.0); Mean Corpuscular Volume 98.9 fL (80.0-100.0); Platelet Count 195 K/uL (130-400); RDW Standard Deviation 62.6 fL (36.4-46.3); Red Blood Count 2.79 M/uL (4.20-5.40); White Blood Count 6.69 K/ul (4.8-10.8)
[2025-07-26 06:15] LABS: Anion Gap 9.0 (3-11); Blood Urea Nitrogen 26.0 mg/dl (6-23); Calcium 8.5 mg/dl (8.6-10.3); Carbon Dioxide 26.0 mmol/L (21-32); Chloride 102.0 mmol/L (98-107); Creatinine Clr Calc Pharmacy 28.6 ml/min; Glucose 101.0 mg/dl (70-99(Fasting)); Potassium 3.8 mmol/L (3.5-5.1); Sodium 137.0 mmol/L (136-145)
[2025-07-26] MEDS: LEVOTHYROXINE SODIUM 50 MCG TABLET PO SCH (06:30)
--- NOTE | 2025-07-26 07:05 | Hospitalist Progress Note ---
Date of Service July 26, 2025 Assessment & Plan (1) CHF (congestive heart failure): (2) Anemia: (3) Peripheral vascular disease: Plan 89 yo female admitted for melena, fatigue is a poor historian, baseline demented. History obtained from family( son). They do not wish to proceed with scopes or any invasive options right now, also expressed wish not to come back to hospital with this situation if happens again. #Severe symptomatic anemia most likely due to GI bleeding with h/o anemia, - hemodynamically stable with 5.2 Hb implies it is chronic blood loss, aggravated on acute. - S/P 1 U transfusion; Hb : 8.3-----<5.2 - Pt back to probably baseline mentation this AM but still poor historian. - Continue to hold aspirin and Plavix. Risk-benefit at this time would favor holding it. #Chronic systolic CHF (chronic HFrEF) - Pt remains dry until this AM. - Would hold any diuretics now. #Hypertension - hold home medications in background of severe anemia #hypothyroidismcontinue Synthroid Dispo: Likely back to [facility] tomorrow. POA Pt's son plan to be here after lunch tomorrow. DVT prophylaxis: Non pharmacological now. Admission and Anticipated Discharge Date Admission Date: July 25, 2025 Supervising Physician Co-Signing Physician Notes I personally examined the patient and verified all plata points of history and exam, discussed case, and agree with decision making with Dr Edwards feeling better, feels too weak to go home yet. Vitals noted, in general she is awake hard of hearing no distress. HEENT normocephalic atraumatic mucous membranes moist. Breathing unlabored no accessory muscle use good effort. Skin without rashes pallor or icterus. Acute/subacute blood loss anemia with profound symptomatic anemiamost likely due to GI bleeding, concern of an underlying cancer. Now much improved status post 2 units of transfusion. Will want to have ongoing discussions to ensure she truly does not want any further evaluation or intervention, but this appears likely to be the case. Given the GI bleeding, holding antiplatelets and anticoagulation CKD stage IIIb/IVprobably a mild DARIANA due to the poor oxygenation from the profound anemiaimproved some. Otherwise as above. Subjective 89 yo female admitted for melena, was severely anemic on admission, received 1 U of transfusion. She is demented baseline, was seen better this AM. I talked to his Son, JIMMY via phone. He wishes not to proceed with invasive management at this point, also clarified that she would not wish to come back to hospital. They wish to take her back to [facility] and bed should be available. Patient seems pretty demented baseline per son too. Review of Systems Review of Systems: As per HPI Physical Exam Physical Exam: Constitutional: Frail appearing, No acute distress, Pale. HEENT: Atraumatic, Normocephalic, No conjunctival injection CVS: S1 S2 Regular Rhythm Respiratory: BL equal air entry with NVBS. No rhonchi, wheezes, or crackles. 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, difficult to access Results & Data Results & Data Vital Signs (Past 12 Hours) Vital Signs Temp Pulse Pulse Resp BP BP Pulse Ox 07/26/25 04:48 36.6 C 80 18 147/63 H 97 07/26/25 03:55 36.6 C 82 14 141/61 H 97 07/26/25 02:55 36.8 C 80 16 147/62 H 96 07/26/25 01:55 36.4 C L 84 16 159/68 H 98 07/26/25 01:25 36.6 C 85 14 159/62 H 98 07/26/25 01:10 36.6 C 84 14 152/61 H 96 07/26/25 00:52 36.7 C 86 16 131/46 L 95 07/25/25 23:40 36.8 C 79 18 146/78 H 95 07/25/25 21:45 07/25/25 21:45 36.7 C 77 16 150/54 H 97 07/25/25 21:45 36.7 C 77 16 150/54 H 97 07/25/25 21:00 78 15 147/62 H 97 07/25/25 20:30 78 17 150/64 H 98 O2 Del Method 07/26/25 04:48 07/26/25 03:55 07/26/25 02:55 07/26/25 01:55 07/26/25 01:25 07/26/25 01:10 07/26/25 00:52 07/25/25 23:40 Room Air 07/25/25 21:45 Room Air 07/25/25 21:45 Room Air 07/25/25 21:45 07/25/25 21:00 07/25/25 20:30 Resident Activity Tracking Resident Involvement: Resident Care Provided Care Provided: Adult Hospital Medicine
[2025-07-26] MEDS: FUROSEMIDE 20 MG TAB PO SCH (08:57)
[2025-07-26] MEDS: DONEPEZIL HCL 5 MG TAB PO SCH (08:58)
[2025-07-26] MEDS: SERTRALINE HCL 50 MG TABLET PO SCH (08:58)
[2025-07-26] MEDS: SERTRALINE HCL 100 MG TABLET PO SCH (08:58)
[2025-07-26] MEDS: DOCUSATE SODIUM/SENNA 50/8.6MG TAB PO SCH (08:59)
--- NOTE | 2025-07-26 12:33 | Electrocardiogram Report ---
Test Reason : Blood Pressure : */* mmHG Vent. Rate : 78 BPM Atrial Rate : 78 BPM P-R Int : 254 ms QRS Dur : 130 ms QT Int : 430 ms P-R-T Axes : 106 -28 148 degrees QTcB Int : 490 ms Sinus rhythm with 1st degree A-V block Left bundle branch block Abnormal ECG When compared with ECG of 05-May-2025 12:26, No significant change was found Confirmed by Bronson Person ([id number]) on 07/26/2025 12:33:26 PM Referred By: [facility] Confirmed By: Bronson Person
[2025-07-26 15:43] VITALS: RESP 18
[2025-07-26] MEDS: ONDANSETRON INJ 2 MG/ML 2 ML VIAL IV PRN (16:45)
--- NOTE | 2025-07-26 17:58 | Billing Data ---
Date of Service July 26, 2025 Coding Level of Care Code 30906 SUB INP/OBS CARE
[2025-07-26] MEDS: PREMARIN VAG CRM 14 APPLN/30 GM TUBE PV SCH (22:05)
[2025-07-27 08:16] VITALS: BP 163/78; PULSE 90; TEMP 98.1; O2SAT 97
--- NOTE | 2025-07-27 10:44 | Discharge Summary ---
Date of Service July 27, 2025 Admission HPI Per Admitting Provider patient is a very pleasant 89-year-old femalehistory is mostly obtained from her children because she is excessively fatigued. It sounds like over the last week or so she has been getting more more fatigued, and over the last month has had some degree of melena. She eventually was so profoundly weak that she could not really do anything and she was brought here to the ER for further evaluation where she was found to be profoundly anemic with a hemoglobin of about 5. She has a recent episode of CHFadmitted in April, but seems to been doing well since. Her family relates she was started on Eliquis recentlydiagnosis not entirely clear, and on her current medication list I see aspirin and Plavix. she reportedly would not want endoscopic workupfamily notes they would like to talk to her more about it when if she is less fatigued, but notes that that would have been consistent with longstanding statements she has been making. Admission Exam Per Admitting Provider In general she is awake, hard of hearing but seems to be orientedvery fatigued and falls asleep fairly easily, no acute distress. HEENT normocephalic atraumatic mucous membranes moist. Cardio is regular. Lungs are clear without rales rhonchi or wheezes good effort no accessory muscle use. Skin is very pale, no icterus. Neuro without focal deficits or lateralizing signs outside of hard of hearing. Labs and diagnostics noted. Principal Diagnosis Severe anemia Discharge Exam Constitutional: Frail appearing, No acute distress, Pale. HEENT: Atraumatic, Normocephalic, No conjunctival injection CVS: S1 S2 Regular Rhythm Respiratory: BL equal air entry with NVBS. No rhonchi, wheezes, or crackles. 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, difficult to access Discharge Data Allergies Allergy/AdvReac Type Severity Reaction Status Date / Time ciprofloxacin Allergy Unknown Unknown Verified 07/25/25 18:19 clindamycin Allergy Unknown Unknown Verified 07/25/25 18:19 fentanyl Allergy Unknown Unknown Verified 07/25/25 18:19 sulfamethoxazole Allergy Unknown Unknown Verified 07/25/25 18:19 [From ] trimethoprim [From ] Allergy Unknown Unknown Verified 07/25/25 18:19 Consultations 07/25/25 17:50 ED Decision to Admit Stat Ordered Studies 07/25/25 14:41 CT abd pelvis IV con only Stat CT cervical spine wo con Stat CT chest diagnostic w con Stat CT head/brain wo con Stat Hospital Course (1) CHF (congestive heart failure): (2) Anemia: (3) Peripheral vascular disease: Plan 89 yo female admitted for melena, fatigue is a poor historian, baseline demented. History obtained from family( son). They do not wish to proceed with scopes or any invasive options right now, also expressed wish not to come back to hospital with this situation if happens again. #Severe symptomatic anemia most likely due to GI bleeding with h/o anemia - hemodynamically stable with 5.2 Hb implies it is chronic blood loss, aggravated on acute. - S/P 1 U transfusion; Hb : 8.3-----<5.2. Repeat on 07/27/2025: 8.0 - Pt back to probably baseline mentation,still poor historian - Continue to hold aspirin and Plavix and eliquis. Risk-benefit at this time would favor holding it. PLAN: CBC every week. On admission patient vocalized no wish to undergo further investigation and management. She seems to understand why and why not, but vocalizes "I do no want to have any life saving measures now" Her son(POA) vocalized same thing. Hence she needs ongoing discussion with PCP following her to define exact goals of care, which was not discussed at hospital. She however is stable enough for discharge now. #Chronic systolic CHF (chronic HFrEF) - Pt remains dry until this admission - Diuretics held on admission, can resume on DC. #Hypertension - held home medications in admission background of severe anemia - recommend f.u with PCP. #hypothyroidismcontinue Synthroid Total Time Total Time Spent Total Time Spent (In Minutes): See attending's attestation Discharge Plan Discharge Items Patient Disposition: Home - Self-Care Reason For Visit: SEVERE ANEMIA Discharge Diagnosis: Moderate Anemia S/P transfusion Condition on Discharge: Serious Activity: Resume your previous activity Non-emergency contact: Primary Care Provider Call non-emergency contact if: your symptoms worsen Follow-up/Referrals: Vannessa Mathis [place] [Primary Care Provider] - Diet: Heart Healthy [facility] Attending Provider Instructions: You were admitted to the hospital for severe anemia. According to history we got partly from you and partly from your family/nurse in [facility], you had black stool as well as hemorrhoidal bleeding on and off. You were treated with blood transfusion, 2 bags and your hemoglobin got better. You came in with hemoglobin number 5.2gm% and after transfusion it was 8.3 gm%. On repeat on 07/27/2025 it is 8.0gm%. However we would not have definite answer for what caused the bleeding unless we do further investigations like colonoscope or upper GI endoscope. We did CAT scan of your belly which did not show any pathology that could justify your presentation. As we discussed with you(07/27/2025, you seemed understanding why do we want to do colonoscopy and why you do not want to do it). You vocalized "I do not want to do any life saving steps at this point, I want to be comfortable". We also reached out to your son( Primary contact, JIMMY), he expressed same. He confirmed that you would not be comfortable moving ahead further in terms of invasive procedures. We encourage you follow up with your PCP to discuss definitive "goals of care" which should help in making decisions for your further care. You also seem to be taking multiple blood thinners like Eliquis, Aspirin, Plavix before coming to hospital. Given your severe anemia, weighing risk/ benefit ratio it's reasonable to stop these medication now. After leaving hospital, once you discuss goal of care with your PCP they should be able to make a plan for you depending on your goals. A discharge summary will be sent to your primary care physician to ensure continuity of care. Please bring this discharge summary with you to your next office appointment so that your provider can review it at that time. Medications: Your medication list has been reviewed and reconciled upon discharge to ensure accuracy and continuity of care. An updated list of all your medications is included with your hospital discharge paperwork. Please review this list closely and make note of any changes to your medications. - Iron supplementation Over the counter 60 mg elemental iron daily. - HOLD ASPIRIN, ELIQUIS AND PLAVIX Follow up appointments: - Make a follow up appointment with your PCP within the next week. It is very important that you follow up with them shortly after discharge from the hospital. - We encourage you and family to have discussion of " Goals of care" for further management. - Keep all of your follow up appointments as already scheduled. If you cannot make an appointment, notify your provider. CONTACT YOUR PRIMARY CARE PROVIDER if you experience any of the following: - Difficulty following your treatment plan - Difficulty taking any of your medications CALL 911 OR GO TO THE EMERGENCY DEPARTMENT if you experience any of the following - Sudden, severe abdominal pain or nausea/vomiting - Severe chest pain or chest pain that radiates to your jaw or arm - Sudden, severe shortness of breath or difficulty breathing Pending Studies at Discharge: No Stand-Alone Forms: My [facility], Smoking Cessation Medications and DC Order Prescriptions: Continued AZO D-Mannose 500 mg capsule 1,000 mg PO QAM donepezil 5 mg tablet 5 mg PO DAILY lidocaine 4 % adhesive patch,medicated 1 patch topical DAILY PRN (Reason: Pain) magnesium oxide 400 mg magnesium capsule 400 mg PO BID methenamine hippurate 1 gram tablet 1 g PO BID hydrocortisone 1 % cream 1 applic topical BID PRN (Reason: for rash) amoxicillin 500 mg capsule 2,000 mg PO ONCE PRN (Reason: dental appointment) Rx Instructions: 60 mins prior to dental appt. Premarin 0.625 mg/gram cream 0.3125 mg vaginal [id number] Rx Instructions: Thursday, Thursday, and Thursday Moira-Bartolo Rx 1-60-300 mg-mg-mcg tablet 1 tab PO DAILY sertraline 100 mg tablet 100 mg PO DAILY Rx Instructions: take in addition to the 50mg to equal 150mg tramadol 50 mg tablet 50 mg PO BID Vitron-C 65 mg iron- 125 mg tablet,delayed release (DR/EC) 1 tab PO BID simvastatin [Zocor] 40 mg tablet 40 mg PO QPM polyethylene glycol 3350 [ClearLax] 17 gram Powder In Packet 17 g PO DAILY PRN (Reason: Constipation) sennosides-docusate sodium [Senna-S] 8.6-50 mg Tablet 1 tab PO DAILY acetaminophen 500 mg Tablet 1,000 mg PO TID esomeprazole magnesium [Nexium] 40 mg Capsule,Delayed Release(Dr/Ec) 40 mg PO DAILY lisinopril 2.5 mg Tablet 2.5 mg PO PM Qty: 30 0RF levothyroxine 50 mcg tablet 50 mcg PO DAILY sertraline 50 mg tablet 50 mg PO DAILY Rx Instructions: take in addition to the 100mg to equal 150mg tramadol 50 mg tablet 100 mg PO QAM PRN (Reason: Pain) furosemide [Lasix] 40 mg tablet 20 mg PO DAILY 30 Days Qty: 15 1RF baclofen 10 mg tablet 10 mg PO QAM lidocaine 4 % Ointment 1 ea topical TID PRN (Reason: left knee pain) Rx Instructions: MAR does not clarify 4% or 5% ointment dextromethorphan-guaifenesin 10-200 mg/5 mL Liquid 10 ml PO Q4H PRN (Reason: Cough) potassium chloride 20 mEq tablet,ER particles/crystals 20 meq PO DAILY magnesium hydroxide [Milk of Magnesia] 400 mg/5 mL Suspension 30 ml PO DAILY PRN (Reason: Constipation) ondansetron 4 mg tablet,disintegrating 4 mg PO Q12H PRN (Reason: Nausea And Vomiting) Discontinued clopidogrel [Plavix] 75 mg Tablet 75 mg PO DAILY aspirin 81 mg Tablet 81 mg PO DAILY Eliquis 5 mg tablet 5 mg PO BID Discharge Orders: Discharge Order (Routine); Ordered 07/27/25 Ordered By: Mary Saleem/Other Patient Handouts: Anemia Admission Data Admit Date/Time: 07/25/25 18:22 Attending Provider: Tre Hoffmann Admit Provider: Tre Hoffmann Primary Care Provider: Vannessa Mathis [place] Other Providers: Tre Hoffmann Other Interventions: Discharge Summary Assessment (RN) Last Done: 07/27/25 14:39 Supervising Physician Co-Signing Physician Notes I personally examined the patient and verified all plata points of history and exam, discussed case, and agree with decision making with Dr Edwards feeling better,would like to go home. Vitals noted, in general she is awake hard of hearing no distress. HEENT normocephalic atraumatic mucous membranes moist. Breathing unlabored no accessory muscle use good effort. Skin without rashes pallor or icterus. Acute/subacute blood loss anemia with profound symptomatic anemiamost likely due to GI bleeding, concern of an underlying cancer. Now much improved status post 2 units of transfusion. Will want to have ongoing discussions with PCP to ensure she truly does not want any further evaluation or intervention, but this appears likely to be the case. Given the GI bleeding, holding antiplatelets and anticoagulation indefinintely. for now, since goals of care not totally outlined, would check weekly CBC CKD stage IIIb/IVprobably a mild DARIANA due to the poor oxygenation from the profound anemiaimproved some. Otherwise as above.
[2025-07-27 12:27] LABS: Hematocrit (blood only) 25.8 % (37.0-47.0); Hemoglobin 8.0 g/dl (12.0-16.0)
[2025-07-27 12:39] LABS: Anion Gap 8.0 (3-11); Blood Urea Nitrogen 21.0 mg/dl (6-23); Calcium 8.2 mg/dl (8.6-10.3); Carbon Dioxide 28.0 mmol/L (21-32); Chloride 101.0 mmol/L (98-107); Creatinine Clr Calc Pharmacy 30.0 ml/min; Glucose 94.0 mg/dl (70-99(Fasting)); Potassium 3.2 mmol/L (3.5-5.1); Sodium 137.0 mmol/L (136-145)
== END 2025-07-27 15:15 | disposition home or self-care (01) | DRG 377 ==
LOC: ED 14:33 → INTOOBSV 18:22 → 3N 18:22